=== PATIENT | female | born 1935 | race Caucasian/White ===

== ENCOUNTER 2023-02-02 20:42 | Observation (INO) | payer OTHER, SELFPAY ==
[2023-02-02] VITALS (7 sets, daily range): BP systolic 126–188; BP diastolic 62–100; PULSE 85–96; BMI 43.1; BMI 42.2
[2023-02-02] MEDS: ZOFRAN ODT (ORALLY DISINTEGRATING) 4 MG PO (17:43)
[2023-02-02 17:49] LABS: Glucose - Point of Care 100 mg/dl (70-99)
[2023-02-02 18:10] LABS: % Basophils 0.9 % (0-2); % Eosinophils 5.8 % (0-6); % Immature Granulocytes 0.2 % (0-0.5); % Monocytes 14.3 % (1.7-9.3); % Neutrophils 53.8 % (42.2-75.2); Absolute Basophils 0.1 10^3/uL (0-0.2); Absolute Eosinophils 0.3 10^3/uL (0-0.7); Absolute Lymphocytes 1.4 10^3/uL (1.2-3.4); Absolute Monocytes 0.8 10^3/uL (0.1-0.6); Absolute Neutrophils 3.1 10^3/uL (1.4-6.5); Hematocrit 36.9 % (37.0-47.0); Hemoglobin 12.2 g/dL (12.0-16.0); Mean Corp Hgb Conc. 33.1 g/dL (33.0-37.0); Mean Corpuscular Hgb 28.8 pg (27.0-31.0); Mean Corpuscular Volume 87.2 fL (81.0-99.0); Mean Platelet Volume 9.9 fL (7.4-10.4); Nucleated Red Blood Cells % 0 %; Platelet Count 213 10^3/uL (130-400); Red Blood Cell Count 4.23 10^6/uL (4.20-5.40); White Blood Cell Count 5.7 10^3/uL (4.8-10.8)
[2023-02-02 18:30] LABS: ALT (SGPT) 20 U/L (0-35); AST (SGOT) 28 U/L (14-36); Albumin 3.8 g/dl (3.5-5.0); Alkaline Phosphatase 102 U/L (38-126); Blood Urea Nitrogen 18 mg/dl (7-17); Calcium 8.9 mg/dl (8.4-10.2); Carbon Dioxide 25 mmol/L (22-30); Chloride 103 mmol/L (98-107); Glucose 101 mg/dl (70-99); Potassium 4.1 mmol/L (3.5-5.1); Sodium 137 mmol/L (135-145); Total Bilirubin 0.9 mg/dl (0.2-1.3); Total Protein 7.3 g/dl (6.3-8.2); eGFR > 60.00
[2023-02-02 18:38] LABS: Troponin I < 0.012 ng/ml
--- NOTE | 2023-02-02 19:06 | ED.GENMED ---
History of Present Illness
General
Chief Complaint: Fainting Sensation
Source: patient
Exam Limitations: none
Time Seen by Provider: 02/02/23 18:19
Nursing documentation reviewed up to this point in time: agreed with
Travel History
Have you had any contact with someone who has COVID-19?: No
Do you have any symptoms of coronavirus? Fever > 100 degrees, chills, cough, shortness of breath, sore throat, loss of taste or smell, muscle aches, or headache?: No
History of Present Illness
History of Present Illness:
PT IS A 87 Y/O F with h/o afib on eliquis, htn, hld
daughter is historian because pt doesn't sepak andorran
here for an event when driving home from ED visit here where i saw her earlier
pt apparently was witnessed to have dec responsiveness and looked like ehe was about to pass out when in the backseat of the car. very brief, lasted seconds and then pt stold her daughter she felt nausea/sick to stomach. so daughter thought maybe
she was about to vomit
sh eturned car around to come back to the hospital
pt was seen earlier in the day for bronchitis and got a dose of doxy before being discharged.
from earlier today:
pt always apparently wheezes all the time, doesn't have diagnosis of COPD or asthma but daughter says that pt's smoked around her for years.
she also has h/o CHF in setting of rapid afib in 07/2022
not on diuretic
here with cough and congestion x 2 days, with low grade temp
no other aimly members sick
pt does'nt use inhaler or neb for her wheezing that she always has
pt denies feeling chest pain, shortness of breath, nausea, vomiting, diarrhea, abodminal pain, leg swelling
Past History
Past History
ED Past Medical History: Arrthythmia (afib), HTN, Hypercholesterolemia and Other (uti)
Social History
Tobacco: Non-smoker
Alcohol: None
Drug: None
Personal:
Living: with family
Review of Systems
Review of Systems
Allergies reviewed?: Yes
All Other Systems: Not applicable
Phy Exam
Physical Exam
Physical Exam:
GENERAL: Alert , in no apparent distress
EYE: pupils equal and reactive
NECK: Supple
ENT: o/p clr, mmm.
CARDIAC: Regular rate and rhythm .no edema
LUNGS: faint wheezing, no tachypnea, no acute respiratory distress, no rhonchi
ABDOMEN: Soft, without focal tenderness, no r/g, no cvat, normal bowel sounds
NEUROLOGICAL: Alert and oriented, no focal neuro deficits, mild dementia; memory loss suspected
SKIN: Warm and dry, skin intact. pale
MUSCULOSKELETAL: No edema, well perfused. neg krunal's sign
PSYCH: Normal and appropriate interaction.
Course
Orders/Labs/Results
Orders:
Orders
02/02/23 17:15
ECG [Electrocardiogram (*1)] Urgent
Reason for Study: Syncope
EKG- Treatment ONCE
02/02/23 17:41
Ondansetron Orally Disint [Zofran Odt (Orally Disintegrating)] 4 mg .ROUTE .STK-MED ONE
02/02/23 17:43
Ondansetron Orally Disint [Zofran Odt (Orally Disintegrating)] 4 mg PO NOW STA
02/02/23 17:47
Cardiac Monitoring- Treatment ONCE
IV Insert/Care/Rem.- Treatment PRN
02/02/23 17:49
Complete Blood Count/With Diff Urgent
Comprehensive Metabolic Panel Urgent
NT-proBNP Urgent
Comment: add on
Troponin I Urgent
02/02/23 17:58
CT Head W/o Iv Contrast Urgent
Comment:
Reason For Exam: syncope
02/02/23 18:23
CT Chest Pe Study Urgent
Comment: eval pe, eval pericardial effusion
Reason For Exam: hypoxia, near syncope; cardiomegaly
02/02/23 18:31
Add On- LAB Urgent
Tests Added?: pro bnp
02/02/23 20:27
Albuterol Nebs [Ventolin Nebules] 2.5 mg INH R NOW STA
Apixaban [Eliquis] 5 mg PO NOW STA
02/02/23 20:29
Admit/Transfer Patient As Directed
Co-Sign Provider:
Level of Care: Observation services
Assign to:: Telemetry
Physician / Group: Boris
Diagnosis: Syncope
Reason for Telemetry: Syncope
Date to Stop Telemetry: 02/04/23
Time to Stop Telemetry: 11:00
Code Status As Directed
Resuscitation Status: Full Code
02/04/23 11:00
DC Protocol for Telemetry ONCE
Abnormal Lab Results
02/02/23 02/02/23
17:48 17:49
Hct 36.9 L %
(37.0-47.0)
RDW 15.0 H %
(11.5-14.5)
Absolute Monos (auto) 0.8 H 10^3/uL
(0.1-0.6)
Monocytes % 14.3 H %
(1.7-9.3)
BUN 18 H mg/dl
(7-17)
Glucose 101 H mg/dl
(70-99)
POC Glucose 100 H mg/dl
(70-99)
02/02/23 17:49
02/02/23 17:49
Vital Signs
Initial and Last Documented VS:
Initial Vital Signs
Temp Pulse Resp BP Pulse Ox
98.2 F 80 18 188/100 95
02/02/23 17:13 02/02/23 17:13 02/02/23 17:13 02/02/23 17:13 02/02/23 17:13
Last Documented Vital Signs
Temp Pulse Resp BP Pulse Ox
98.2 F 75 18 139/62 93
02/02/23 17:13 02/02/23 20:48 02/02/23 20:48 02/02/23 20:48 02/02/23 19:15
MDM/Problems Addressed
Differential Diagnosis Includes:
PE, pericardial effusion, pna, vagal event
MDM/Problems Addressed:
87 y/o F afib on eliquis
seen earlier for URI sxs thought to be bronchtis/pna
given abx
went home and on way had this nauesa/near vomiting and near syncope event where she wasn't responsive and looked pale and dry heaved
but on arrival she is hypoxic 91% and slightly wheezy
cts head/pe study neg
labs reassuring
but pt has dementia, cannot recall event
should monitor overnight trend trop.
*Critical Care Note
Total Time (30-74mins, 75-104mins- exclusive of procedures): Not Applicable
ED Attending Note
-
Portions of this chart may have been created with voice recognition software.� Occasional wrong word or��sound alike� substitutions may have occurred due to the inherent limitations of voice recognition software.
Discharge Plan
Departure
Patient Disposition: Admit
Date of Disposition: 02/02/23
Time of Disposition: 19:39
Admit to: Telemetry
Presentation/result/management discussed w/ accepting MD/DO: Hospitalist
Condition: Fair
Covid-19: Negative COVID-19
Discharge Problem:
Near syncope, Bronchitis, Dementia
Interventions
Interventions:
*Risk Screen - Suicide Last Done: 02/02/23 18:04
*General Assessment Last Done: 02/02/23 18:04
*Neglect/Abuse Screening Last Done: 02/02/23 18:04
ED- Fall Risk Assessment Last Done: 02/02/23 18:04
*ED COVID-19 Vaccine History Last Done: 02/02/23 17:13
ED- Cardiac Assessment Last Done: 02/02/23 19:56
ED- Neurological Assessment Last Done: 02/02/23 19:56
[2023-02-02 19:12] LABS: NT-proBNP 703 pg/ml
--- NOTE | 2023-02-02 20:32 | HPS.HSE ---
Family Physician
-
Family Physician: Ness Mckenzie
Chief Complaint
-
Syncope
History of Present Illness
Patient is an 87y F with PMH significant for CHF and A-Fib who presents to ED complaining of near-syncopal episode. Patient was seen in the ED earlier today for cough and cold symptoms. Work-up was essentially unremarkable and patient was
discharged on a course of oral doxycycline. She was given her first dose of doxy here in the ED. On the way home, patient began to complain of nausea and appeared pale and weak according to her daughter. Her eyes rolled back and she looked as if
she might pass out. She did not have any emesis. She noted no chest pain or dyspnea.
Patient returned to the ED for further evaluation.
At present, patient is resting comfortably in the ED. She denies any persistent nausea or lightheadedness. She was able to eat without difficulty.
Medical History
Past Medical History
Past Medical History: Reports Other
Additional Past Medical History:
Paroxysmal Atrial Fibrillation
Hypertension
Cardiomyopathy / Chronic HFpEF
Mild Dementia
Past Surgical History: Reports None and Other
Social History
Tobacco: Non-smoker (But long history of second-hand smoke exposure / spouse.)
Alcohol: None
Drug: None
Family History
Family History: Not pertinent
Allergies / Home Medications
Allergies reflects when Allergies were last updated in [facility].
Home Medications with original date entered in [facility]
Allergy/Medication List:
Allergies
Allergy/AdvReac Type Severity Reaction Status Date / Time
No Known Allergies Allergy Verified 02/02/23 12:23
Home Medications
acetaminophen 500 mg tablet (Tylenol Extra Strength) 500 mg PO Q6H PRN mild pain 02/02/23
apixaban 5 mg tablet (Eliquis) 5 mg PO DAILY@1700 02/02/23
diltiazem HCl 120 mg tablet 120 mg PO DAILY 12/15/23
metoprolol succinate 25 mg tablet,extended release 24 hr 25 mg PO DAILY 02/02/23
Review of Systems
-
History Source: Patient and Family
A 12 point ROS was completed and negative except as noted: Yes
Constitutional: Reports Fever and Fatigue; Denies Chills
EENT: Reports Sore Throat
Respiratory: Reports Cough; Denies Trouble Breathing
Cardiac: Reports Syncope; Denies Chest Pain or Palpitations
Abdomen/GI: Reports Nausea; Denies Abdominal Pain, Vomiting or Diarrhea
: Denies Dysuria or Frequency
Musculoskeletal: Denies Joint Pain or Edema
Neurological: Denies Dizzy or Headache
Psych: Denies Depression or Anxiety
Physical Exam
Vital Signs
Vital Signs
Temp Pulse Resp BP Pulse Ox
98.2 F 82 20 165/83 93
02/02/23 17:13 02/02/23 19:15 02/02/23 19:15 02/02/23 19:15 02/02/23 19:15
Physical Exam
General: Other (87y F in no acute distress.)
HEENT: Moist mucous membranes and PERRLA
Respiratory: Clear; No Wheezes, Rales or Rhonchi
Cardiac: S1/S2 and Irregular Rhythm; No Murmur
GI: Soft, Non Tender, Non Distended and Normal Bowel Sounds
Musculoskeletal: No Clubbing, No Cyanosis and No Edema
Neuro: AO x 3
Laboratory Results
-
02/02/23 17:49
02/02/23 17:49
Laboratory Results
Total Bilirubin 0.9 mg/dl (0.2-1.3) 02/02/23 17:49
AST 28 U/L (14-36) 02/02/23 17:49
ALT 20 U/L (0-35) 02/02/23 17:49
Alkaline Phosphatase 102 U/L (38-126) 02/02/23 17:49
Troponin I < 0.012 ng/ml 02/02/23 17:49
Impression/Plan
-
A/P: Patient is an 87y F with PMH significant for A-Fib and CHF who presents to ED for evaluation of near-syncopal episode.
Near Syncope
- Observe overnight for further evaluation and treatment.
- EKG, CT PE study, etc all unremarkable in the ED.
- Suspect vasovagal episode secondary to nausea from PO doxy.
- Monitor on tele overnight for any other arrhythmia.
- Monitor for new / recurrent symptoms.
- Hold further doxy / abx.
- PRN antiemetics as needed.
URI
- Cough /cold symptoms x several days.
- Afebrile here with no leukocytosis, etc.
- CT chest with no PE and no parenchymal lung disease.
- Hold further abx.
- Supportive care with nebs, Mucinex, etc.
Paroxysmal Atrial Fibrillation
- Stable. Med regimen is somewhat confounding.
- Patient takes Cardizem and Toprol both once daily - had been BID at time of July discharge.
- Keep these at daily for now and monitor BP / pulse rate.
- Also takes Eliquis only once daily - which seems like a misunderstanding.
- Will resume BID Eliquis doing for stroke risk reduction.
Chronic HFpEF
- Stable. No evidence of volume overload.
- Not on chronic diuretics.
- Follow daily weights, I/Os, etc.
DVT Prophylaxis: On Eliquis
Code Status: Full
[2023-02-02] MEDS: ELIQUIS 5 MG PO (20:40)
[2023-02-02] MEDS: VENTOLIN NEBULES 2.5 MG INH (20:40)
[2023-02-03 03:46] VITALS: BP 131/56
[2023-02-03 06:00] VITALS: BMI 41.7
[2023-02-03 06:29] LABS: Hematocrit 33.9 % (37.0-47.0); Hemoglobin 11.3 g/dL (12.0-16.0); Mean Corp Hgb Conc. 33.3 g/dL (33.0-37.0); Mean Corpuscular Volume 86.9 fL (81.0-99.0); Mean Platelet Volume 9.5 fL (7.4-10.4); Platelet Count 188 10^3/uL (130-400)
[2023-02-03 07:00] LABS: Blood Urea Nitrogen 18 mg/dl (7-17); Calcium 8.4 mg/dl (8.4-10.2); Carbon Dioxide 25 mmol/L (22-30); Chloride 104 mmol/L (98-107); Estimated Creatinine Clearance 36 ml/min; Glucose 97 mg/dl (70-99); Potassium 4.2 mmol/L (3.5-5.1); Sodium 136 mmol/L (135-145); eGFR > 60.00
[2023-02-03 07:14] LABS: Troponin I < 0.012 ng/ml
[2023-02-03 07:16] VITALS: BP 144/72
[2023-02-03] MEDS: ELIQUIS 5 MG PO (08:26)
[2023-02-03] MEDS: CARDIZEM CD 120 MG PO (08:26)
[2023-02-03] MEDS: TOPROL XL 25 MG PO (08:26)
[2023-02-03] MEDS: MUCINEX 600 MG PO (08:26)
--- NOTE | 2023-02-03 09:03 | W.PN.HOSP.TC ---
Addendum entered and electronically signed by Fernando Aguero MD 02/03/23 09:12:
Daughter updated and all questions answered.
I have requested daughter to continue monitoring patient blood pressure/heart rate if have any further dizziness episode.
Patient to follow-up with primary care physician within 1 week postdischarge.
Patient can be discharged home after physical therapy evaluation today
Original Note:
Today's Communication/Plan
-
Repeat Ortho check
PT OT evaluation
Possible discharge later today
Assessment / Plan
Assessment / Plan
Patient is an 87y F with PMH significant for A-Fib and CHF who presents to ED for evaluation of near-syncopal episode.
Near Syncope
Suspected vasovagal event
�- EKG, CT PE study, etc all unremarkable in the ED.
�- EKG in the morning showing normal sinus arrhythmia. QTc 4 4 2 ms
- Orthostatic vitals somewhat positive although standing SBP of 124. Recheck today
- PT OT evaluation ordered.
�- Hold further doxy / abx.
�- PRN antiemetics as needed.
URI
�- Cough /cold symptoms x several days.
�- Afebrile here with no leukocytosis, etc.
�- CT chest with no PE and no parenchymal lung disease.
�- Hold further abx.
�- Supportive care with nebs, Mucinex, etc.
�
Paroxysmal Atrial Fibrillation
�- Stable.� Med regimen is somewhat confounding.
�- Patient takes Cardizem and Toprol both once daily - had been BID at time of July discharge.
�- Patient on Eliquis 5 mg twice daily, although med list showing daily which might have been med reconciliation error/miscommunication
Chronic HFpEF
�- Stable.� No evidence of volume overload.
�- Not on chronic diuretics.
�- Follow daily weights, I/Os, etc.
DVT Prophylaxis:� On Eliquis
Code Status:� Full
Anticipated Discharge: Today
Subjective/Interval History
-
Date of Service: February 03, 2023
Resting comfortably in bed
No reported acute issues overnight
Objective Data
-
Labs:
Laboratory Results
02/03/23
06:20
WBC 6.0
Hgb 11.3 L
Hct 33.9 L
Plt Count 188
Sodium 136
Potassium 4.2
Chloride 104
Carbon Dioxide 25
BUN 18 H
Creatinine 0.9
Glucose 97
Calcium 8.4
Vital Signs:
Vital Signs
Temp Pulse Resp BP Pulse Ox
100.3 F 82 20 144/72 91
02/03/23 07:16 02/03/23 07:16 02/03/23 07:16 02/03/23 07:16 02/03/23 07:16
I&O
02/02/23 02/03/23 02/04/23
06:59 06:59 06:59
Intake Total 480 / 480
Balance 480 / 480
Review of Systems
-
Unable to obtain full review of systems at this time due to: Language Barrier
Physical Exam
-
General: No Apparent Distress
HEENT: Negative Oxygen
Respiratory: Clear to Auscultation
Cardiac: Regular Rhythm and S1/S2; Negative Murmur
Neuro: Awake, Alert and No Motor Deficits
[2023-02-03] MEDS: TYLENOL 650 MG PO (09:12)
--- NOTE | 2023-02-03 10:10 | CM ---
Addendum entered by Maria Esther Lou 02/03/23 12:02:
Patient's daughter is agreeable to visiting nurses and has selected
[facility]

Alternative fax [phone]
Original Note:
Patient was admitted under observation, patient [id number] with her eldest daughter in a 2 story home with stair glide to 2nd floor, florencio twas independent with adl's and uses a cane or walker with ambulation. Patient has a prescription plan and florencio
uses [facility] pharmacy.
PCP; Ness Mckenzie
Plan; Home with daughters, caseworker with discuss visiting nurses at discharge.
[2023-02-03 10:14] VITALS: BP 117/63; BP 145/73; PULSE 80; O2SAT 92
[2023-02-03 11:37] VITALS: BP 103/58; BP 119/63; BP 128/69; PULSE 77; PULSE 83; PULSE 86
--- NOTE | 2023-02-03 17:00 | W.DCSUMMARY ---
Discharge Summary
Discharge Data
Date of Admission: 02/02/23
Date of Discharge: 02/03/23
-
Pending Results: No
Hospital Course
Discharging Physician : Dr Fernando Aguero
Disposition : Home
Primary care physician : Dr Ness Mckenzie
Principal Discharge diagnosis :
Presyncope vasovagal event
Doxycycline induced nausea
Chronic Discharge diagnosis :
Paroxysmal atrial fibrillation
Chronic diastolic heart failure
Essential hypertension
Hospital Course :
Patient is 87-year-old female with above-mentioned past medical history was brought into ER after having near syncope episode. Patient was seen in ER earlier and had CT chest PE/EKG/lab work which was unrevealing of any ongoing acute issues.
Patient was having some cough/cold symptoms and was provided doxycycline by ER physician. On the way to home patient was noted to having some nausea and was appeared to be pale and weak . At 1 point patient was dizzy with eye rolling backwards.
Patient was brought back to ER by family. In ER patient was noted to be back to herself, her episode of presyncope was felt to be vasovagal in nature from nausea induced by doxycycline. As there was no clear significance symptoms, doxycycline was
discontinued and patient was maintained on symptomatic care. Patient was monitored in hospital on telemetry overnight, and did not have any reported reoccurrence of similar episode. Patient had orthostatic vitals checked and did have some drop in
systolic blood pressure on standing although SBP in 120s and likely would not give any orthostasis symptoms. Patient was cleared medically at this point for discharge home.
Of note patient was on Eliquis 5 mg daily, which was likely not true, patient was changed to 5 mg twice daily and family was instructed about this change.
Important imaging findings :
None
Procedure findings :
None
Discharge Plan
-
Patient Disposition: Home (Routine Discharge)
Discharge Diagnosis/Procedures: Syncope presumed vasovagal
Condition: Fair
Diet: Regular
Activity: As tolerated
Driving Restrictions: No driving
Bathing Restrictions: OK to Shower
Referrals:
Ness Mckenzie MD [Family Provider] - in one week
Prescriptions:
Continued
acetaminophen [Tylenol Extra Strength] 500 mg Tablet
500 mg PO Q6H PRN (Reason: mild pain)
diltiazem HCl 120 mg Tablet
120 mg PO DAILY
metoprolol succinate 25 mg Tablet Extended Release 24 Hr
25 mg PO DAILY
Eliquis 5 mg tablet
5 mg PO BID Qty: 0 0RF
Discharge Orders:
Discharge Patient (As Directed); Ordered 02/03/23
Ordered By: Fernando Aguero
== END 2023-02-03 17:31 | disposition home health service (06) ==
LOC: 4 WEST ACU 20:42
PROVIDERS: Emergency Medicine; ADMITTING PHYSICIAN Hospitalist; ATTENDING PHYSICIAN Hospitalist; EMERGENCY PHYSICIAN Emergency Medicine; FAMILY PHYSICIAN Internal Medicine
DX: R11.0 Nausea (principal); R55 Syncope and collapse; R42 Dizziness and giddiness; T36.4X5A Adverse effect of tetracyclines, initial encounter; Y92.9 Unspecified place or not applicable; I48.0 Paroxysmal atrial fibrillation; I11.0 Hypertensive heart disease with heart failure; J40 Bronchitis, not specified as acute or chronic; I50.32 Chronic diastolic (congestive) heart failure; E78.00 Pure hypercholesterolemia, unspecified; R09.02 Hypoxemia; F03.A0 Unspecified dementia, mild, without behavioral disturbance, psychotic disturbance, mood disturbance, and anxiety; Z77.22 Contact with and (suspected) exposure to environmental tobacco smoke (acute) (chronic); Z79.01 Long term (current) use of anticoagulants; Z87.440 Personal history of urinary (tract) infections
CPT/HCPCS: 70450; 71275; 80048; 80053; 82962; 83880; 84484; 85025; 85027; 93005; 97162; 99285; G0378; Q9967

== ENCOUNTER 2023-04-06 17:08 | Emergency (ER) | payer OTHER, MEDICARE, SELFPAY ==
[2023-04-06 17:12] VITALS: BP 154/73
[2023-04-06 17:31] LABS: % Basophils 0.5 % (0-2); % Eosinophils 4.2 % (0-6); % Immature Granulocytes 0.3 % (0-0.5); % Lymphocytes 34.1 % (20.5-51.1); % Neutrophils 50.9 % (42.2-75.2); Absolute Eosinophils 0.3 10^3/uL (0-0.7); Absolute Monocytes 0.6 10^3/uL (0.1-0.6); Absolute Neutrophils 3.1 10^3/uL (1.4-6.5); Hematocrit 35.3 % (37.0-47.0); Hemoglobin 11.7 g/dL (12.0-16.0); Mean Corp Hgb Conc. 33.1 g/dL (33.0-37.0); Mean Corpuscular Hgb 29.2 pg (27.0-31.0); Mean Platelet Volume 10.1 fL (7.4-10.4); Nucleated Red Blood Cells % 0 %; Platelet Count 247 10^3/uL (130-400); Red Blood Cell Count 4.01 10^6/uL (4.20-5.40); Red Cell Dist. Width 14.8 % (11.5-14.5)
[2023-04-06 17:52] LABS: NT-proBNP 345 pg/ml
[2023-04-06 18:30] LABS: ALT (SGPT) 22 U/L (0-35); AST (SGOT) 28 U/L (14-36); Albumin 3.7 g/dl (3.5-5.0); Alkaline Phosphatase 102 U/L (38-126); Blood Urea Nitrogen 27 mg/dl (7-17); Calcium 9.3 mg/dl (8.4-10.2); Carbon Dioxide 26 mmol/L (22-30); Chloride 105 mmol/L (98-107); Glucose 134 mg/dl (70-99); Potassium 4.4 mmol/L (3.5-5.1); Sodium 138 mmol/L (135-145); Total Bilirubin 0.5 mg/dl (0.2-1.3); Total Protein 6.9 g/dl (6.3-8.2); eGFR > 60.00
[2023-04-06 19:45] VITALS: BP 159/72
--- NOTE | 2023-04-06 20:20 | ED.GENMED ---
History of Present Illness
General
Chief Complaint: Swelling
Source: patient
Exam Limitations: none
Time Seen by Provider: 04/06/23 19:12
Nursing documentation reviewed up to this point in time: agreed with
Travel History
Have you had any contact with someone who has COVID-19?: No
Do you have any symptoms of coronavirus? Fever > 100 degrees, chills, cough, shortness of breath, sore throat, loss of taste or smell, muscle aches, or headache?: No
History of Present Illness
History of Present Illness:
Patient with history of atrial fibrillation on Eliquis, presents to ED secondary to increasing left lower leg pain with swelling and redness over the past 3 days. Denies fever or chills. Denies trauma. Denies open wound. Denies previous history
of similar symptoms. Denies chest pain or shortness of breath. Denies recent illness.
Past History
Past History
ED Past Medical History: Arrthythmia (afib), HTN, Hypercholesterolemia and Other (uti)
Social History
Tobacco: Non-smoker
Alcohol: None
Drug: None
Personal:
Living: with family
Review of Systems
Review of Systems
Allergies reviewed?: Yes
All Other Systems: ROS reviewed and negative except as documented in HPI and ROS
Constitutional: Reports no symptoms; Denies fever or chills
EENT: Reports no symptoms
Respiratory: Reports no symptoms; Denies trouble breathing
Cardiac: Reports no symptoms; Denies chest pain
ABD/GI: Reports no symptoms
: Reports no symptoms
Musculoskeletal: Reports edema and other (Left leg pain with swelling and redness)
Skin: Reports other (Redness of the leg)
Neurological: Reports no symptoms
Phy Exam
Physical Exam
Physical Exam:
Physical Exam
General: no apparent distress, not acutely ill. afebrile
Head: nc/at. eomi
Neck: supple. no meningeal signs.
Abdomen: normal bowel sounds. not tender.
Neuro: alert and oriented. no focal neurological deficits
Skin: no rash
Psychiatric: well kept. interactive and cooperative
Extremities: LLE edema with erythema/warmth, without open wound. no calf tenderness.
Scores
Heart Failure Risk
Heart Failure Risk Score: Not Applicable
Course
Orders/Labs/Results
Orders:
Orders
04/06/23 17:19
BNP [NT-proBNP] Urgent
Complete Blood Count/With Diff Urgent
Comprehensive Metabolic Panel Urgent
04/06/23 19:33
US Legs, Left [US Periph Venous LOWER Ext LT] Urgent
Comment:
Reason For Exam: pain/swelling/redness
04/06/23 20:38
Cephalexin Monohydrate [Keflex] 250 mg PO NOW STA
Abnormal Lab Results
04/06/23
17:19
RBC 4.01 L 10^6/uL
(4.20-5.40)
Hgb 11.7 L g/dL
(12.0-16.0)
Hct 35.3 L %
(37.0-47.0)
RDW 14.8 H %
(11.5-14.5)
Monocytes % 10.0 H %
(1.7-9.3)
BUN 27 H mg/dl
(7-17)
Glucose 134 H mg/dl
(70-99)
04/06/23 17:19
04/06/23 17:19
Vital Signs
Initial and Last Documented VS:
Initial Vital Signs
Temp Pulse Resp BP Pulse Ox
98.0 F 79 18 154/73 95
04/06/23 17:12 04/06/23 17:12 04/06/23 17:12 04/06/23 17:12 04/06/23 17:12
Last Documented Vital Signs
Temp Pulse Resp BP Pulse Ox
98.0 F 74 16 159/72 97
04/06/23 17:12 04/06/23 19:45 04/06/23 19:45 04/06/23 19:45 04/06/23 19:45
MDM/Problems Addressed
MDM/Problems Addressed:
US LE: no DVT.
Patient with likely lower leg swelling, secondary to sedentary lifestyle, along with likely venous insufficiency, as patient appears to have chronic lower leg swelling. However, in light of mild warmth and erythema, difficult to exclude potential
lower leg cellulitis. As such, patient will be given short course of Lasix along with Keflex x 5 days. Recommended leg elevation while she is at home, along with PCP follow-up next week. Advised to return to ED with worsening symptoms. Patient
is otherwise afebrile, hemodynamically stable, and appears comfortable, at time of discharge, to the care of her daughter.
*Critical Care Note
Total Time (30-74mins, 75-104mins- exclusive of procedures): Not Applicable
ED Attending Note
-
Portions of this chart may have been created with voice recognition software.� Occasional wrong word or��sound alike� substitutions may have occurred due to the inherent limitations of voice recognition software.
Discharge Plan
Departure
Patient Disposition: Home (Routine Discharge)
Date of Disposition: 04/06/23
Time of Disposition: 20:42
Patient with high blood pressure during this ER visit?: Yes
Condition: Good
Discharge Problem:
Leg swelling
Instructions: Dependent Edema (DC)
Prescriptions:
New
furosemide [Lasix] 20 mg tablet
20 mg PO DAILY Qty: 2 0RF
cephalexin 250 mg capsule
250 mg PO Q12H Qty: 9 0RF
No Action
Eliquis 5 mg tablet
5 mg PO BID Qty: 0 0RF
diltiazem HCl 120 mg Tablet
120 mg PO BID
Referrals:
Ness Mckenzie MD [Family Provider] -
Activity Restrictions/Additional Instructions:
As discussed, please follow-up with your primary care physician for reevaluation next week. Your prescriptions have been sent electronically to [facility] pharmacy in [place].
Interventions
Interventions:
*Risk Screen - Suicide Last Done: 04/06/23 19:45
*General Assessment Last Done: 04/06/23 17:12
*Neglect/Abuse Screening Last Done: 04/06/23 19:45
*ED COVID-19 Vaccine History Last Done: 04/06/23 17:12
*Nursing Disposition Last Done: 04/06/23 21:08
ED- Cardiac Assessment Last Done: 04/06/23 19:45
ED- Pulmonary Assessment Last Done: 04/06/23 19:45
ED-Skin Assessment Last Done: 04/06/23 19:45
Discharge Date and Time
Discharge Date/Time: 04/06/23 21:09
[2023-04-06] MEDS: KEFLEX 250 MG PO (21:02)
== END 2023-04-06 21:09 | disposition home or self-care (01) ==
LOC: EMR 17:08
PROVIDERS: Emergency Medicine; EMERGENCY PHYSICIAN Emergency Medicine; FAMILY PHYSICIAN Internal Medicine
DX: M79.89 Other specified soft tissue disorders (principal); M79.662 Pain in left lower leg; I48.91 Unspecified atrial fibrillation; I10 Essential (primary) hypertension; E78.00 Pure hypercholesterolemia, unspecified; H54.61 Unqualified visual loss, right eye, normal vision left eye; M19.90 Unspecified osteoarthritis, unspecified site; Z79.01 Long term (current) use of anticoagulants; Z87.440 Personal history of urinary (tract) infections
CPT/HCPCS: 99284; 80053; 83880; 85025; 93971

== ENCOUNTER → 2023-05-15 14:59 | Outpatient (REF) | payer OTHER, SELFPAY | LOC: DHCBS MAIN 14:59 | PROVIDERS: ATTENDING PHYSICIAN Physician Assistant; FAMILY PHYSICIAN Internal Medicine | DX: I48.0 Paroxysmal atrial fibrillation (principal); I50.30 Unspecified diastolic (congestive) heart failure; R60.0 Localized edema; R06.09 Other forms of dyspnea | CPT/HCPCS: 93306 ==

== ENCOUNTER 2023-08-04 22:08 | Inpatient (IN) | payer OTHER, SELFPAY ==
[2023-08-04 19:02] VITALS: BP 185/78
--- NOTE | 2023-08-04 19:11 | ED.GENMED ---
History of Present Illness
General
Chief Complaint: Fever
Source: family and ambulance crew
Time Seen by Provider: 08/04/23 19:04
Travel History
Have you had any contact with someone who has COVID-19?: No
Do you have any symptoms of coronavirus? Fever > 100 degrees, chills, cough, shortness of breath, sore throat, loss of taste or smell, muscle aches, or headache?: Yes
Symptoms:: fever, cough
History of Present Illness
History of Present Illness:
87-year-old female with past medical history of atrial fibrillation, hypertension, hyperlipidemia presenting to the ER via EMS from home after daughter found her lethargic, weak and questionable rectal bleeding. Per EMS daughter told them that the
last time this happened patient was septic and required admission. Attempted to use the language line as patient is Guamanian-speaking only however while using the drive thru order taker line patient was not answering any of their questions from the drive thru order taker
as she did not seem to understand how to utilize this device. Per EMS daughter is reportedly on her way to the hospital to help provide further information.
Past History
Past History
ED Past Medical History: Arrthythmia (afib), HTN, Hypercholesterolemia and Other (uti)
ED Past Surgical History: None
Social History
Tobacco: Non-smoker
Alcohol: None
Drug: None
Personal:
Living: with family
Review of Systems
Review of Systems
All Other Systems: ROS reviewed and negative except as documented in HPI and ROS
Phy Exam
Physical Exam
Physical Exam:
GENERAL: Alert , in no apparent distress, rigors
Head: Normocephalic atraumatic
EYE: Clear conjunctiva
NECK: Supple
ENT: o/p clr, mmm.
CARDIAC: Tachycardic rate and rhythm, no murmur
LUNGS: Clear breath sounds bilaterally, no acute respiratory distress, no wheezes/rales/rhonchi
ABDOMEN: Soft, without focal tenderness, no r/g, no cvat
NEUROLOGICAL: Alert but unable to assess orientation
SKIN: Warm and dry, skin intact.
MUSCULOSKELETAL: No edema, well perfused.
PSYCH: Normal and appropriate interaction.
Scores
Heart Failure Risk
Heart Failure Risk Score: Not Applicable
Heart Score for Chest Pain Patients
STEMI patient?: Not applicable
Withdrawal Assessment of Alcohol
Withdrawal Assessment Completed?: Not applicable
Course
Orders/Labs/Results
Orders:
Orders
08/04/23 19:01
EKG [Electrocardiogram (*1)] Urgent
Reason for Study: Tachycardia
08/04/23 19:02
EKG- Treatment ONCE
08/04/23 19:10
Straight cath- Treatment ONCE
0.9% Sodium Chloride 1000 ml [Nss] 1,000 ml IV BOLUS
Acetaminophen [Tylenol] 1,000 mg PO NOW STA
CR Chest - 2 Views Urgent
Comment:
Reason For Exam: fever
08/04/23 19:31
Blood Culture Q30M
PRABHJOT Source: Blood/Venous
Specimen Description:
08/04/23 19:39
COVID-19 Antigen Urgent
Source: Nasal Swab
08/04/23 20:00
Complete Blood Count/With Diff Urgent
Comprehensive Metabolic Panel Urgent
Lactic Acid Q4H
Comment: CANCEL 2nd LACTIC ACID IF 1st LACTIC ACID IS LESS THAN 2
Blood Culture Q30M
PRABHJOT Source: Blood/Venous
Specimen Description:
08/04/23 20:10
Urinalysis Reflex To Culture Urgent
Date Specimen was Collected: 08/04/23
Time Specimen was Collected: 20:08
Urine Microscopic Reflex Cult Urgent
Urine Culture Urgent
PRABHJOT Source: U
Specimen Description:
Date Specimen was Collected: 08/04/23
Time Specimen was Collected: 20:08
08/04/23 21:18
CefTRIAXone [Rocephin] 1,000 mg IV NOW STA
Abnormal Lab Results
08/04/23 08/04/23
20:00 20:10
RBC 4.08 L 10^6/uL
(4.20-5.40)
Hgb 11.6 L g/dL
(12.0-16.0)
Hct 35.4 L %
(37.0-47.0)
MCHC 32.8 L g/dL
(33.0-37.0)
RDW 15.5 H %
(11.5-14.5)
Abs Immat Gran (auto) 0.1 H 10^3/uL
(0-0.05)
Absolute Neuts (auto) 7.5 H 10^3/uL
(1.4-6.5)
Absolute Lymphs (auto) 1.1 L 10^3/uL
(1.2-3.4)
Neutrophils % 81.0 H %
(42.2-75.2)
Lymphocytes % 12.1 L %
(20.5-51.1)
Glucose 122 H mg/dl
(70-99)
AST 38 H U/L
(14-36)
Alkaline Phosphatase 132 H U/L
(38-126)
Urine Nitrite (Reflex) Positive A
(Negative)
Leukocyte Esterase Rfl Trace A
(Negative)
Urine WBC (Reflex) 11-15 A /HPF
(0-5)
Urine Bacteria (Reflex) Many A
(Negative)
08/04/23 20:00
08/04/23 20:00
Vital Signs
Initial and Last Documented VS:
Initial Vital Signs
Resp Pulse Ox
25 93
08/04/23 19:01 08/04/23 19:01
Last Documented Vital Signs
Temp Pulse Resp BP Pulse Ox
99.5 F 76 16 110/45 93
08/04/23 21:15 08/04/23 21:15 08/04/23 21:15 08/04/23 21:00 08/04/23 21:15
MDM/Problems Addressed
Differential Diagnosis Includes:
UTI, pneumonia, bacteremia, lower GI versus upper GI bleed
MDM/Problems Addressed:
Patient found to have a fever of 102.9 rectally on arrival. There was no stool within the rectum to assess Hemoccult. Patient does arrive hypertensive and mildly tachycardic. I suspect the tachycardia is likely secondary to patient's pyrexia.
She does appear rigors on exam. Tylenol ordered for pyrexia. Will initiate septic work. COVID testing ordered. Will await daughter arrival to the emergency department. If daughter does not arrive shortly will contact her via telephone to obtain
further history. Anticipate admission
*Pulse Oximetry
Patient hypoxic: no
*EKG
Interpreted by ED Provider?: Yes
Comparison EKG: no comparison EKG present
Heart Rate: 97
Rate: normal
Rhythm: sinus
Ischemia: no ischemia
*[employer] Server Interpretation
Rate: normal
Rhythm: sinus
*Critical Care Note
Total Time (30-74mins, 75-104mins- exclusive of procedures): Not Applicable
Data Reviewed
Review of Other/Old Records Reveals: Labs, Records and Discharge Summary (Recent admission for syncope/bronchitis in January 2023)
Source: records
Comment
Comment:
Patient's daughter is now at the bedside stating that patient woke up okay today and in the afternoon started to be a little bit more lethargic and heard the daughter making abnormal sounds while in the bathroom. She went to the bathroom and when
she helped the patient wipe she noticed a little bit of blood on the toilet paper. She noticed the patient laying in bed more and was Reiger wrist which is why she contacted EMS as she states the last time this happened she had E. coli bacteremia.
Daughter states patient seems to be mentating at her normal. No medications were provided at home prior to arrival.
Patient Management
Discussion with other providers: Hospitalist
Escalation/DeEscalation of care consider admission/obs:
Patient's labs show no leukocytosis. Urine is nitrite positive and trace leukocytes with 11-15 WBCs. COVID negative and chest x-ray is negative for any pneumonia. Given patient's age combined with her near 103 fever and history of bacteremia will
admit for IV antibiotics, monitoring and culture trending. I ordered Rocephin based off of patient's previous urine cultures from 1 year ago. Hospitalist team was notified and accepts for continued evaluation and treatment.
ED Attending Note
-
Portions of this chart may have been created with voice recognition software.� Occasional wrong word or��sound alike� substitutions may have occurred due to the inherent limitations of voice recognition software.
Discharge Plan
Departure
Patient Disposition: Admit
Date of Disposition: 08/04/23
Time of Disposition: 21:20
Presentation/result/management discussed w/ accepting MD/DO: Hospitalist
Discharge Problem:
Acute UTI (urinary tract infection)
Prescriptions:
No Action
Eliquis 5 mg tablet
5 mg PO BID Qty: 0 0RF
diltiazem HCl 120 mg Capsule,Extended Release 24 Hr
120 mg PO BID
furosemide 20 mg Tablet
20 mg PO DAILY
Referrals:
Ness Mckenzie MD [Family Provider] -
Interventions
Interventions:
*Risk Screen - Suicide Last Done: 08/04/23 19:02
*General Assessment Last Done: 08/04/23 19:02
*Neglect/Abuse Screening Last Done: 08/04/23 19:02
ED- Fall Risk Assessment Last Done: 08/04/23 20:00
ED- Neurological Assessment Last Done: 08/04/23 20:00
ED-Skin Assessment Last Done: 08/04/23 20:00
Discharge Date and Time
Print Language: Guamanian
[2023-08-04] MEDS: TYLENOL 1000 MG PO (19:36)
[2023-08-04 19:56] LABS: COVID-19 Antigen Negative (Negative)
[2023-08-04 20:06] LABS: % Basophils 0.3 % (0-2); % Eosinophils 1.2 % (0-6); % Immature Granulocytes 0.5 % (0-0.5); % Lymphocytes 12.1 % (20.5-51.1); % Monocytes 4.9 % (1.7-9.3); Absolute Eosinophils 0.1 10^3/uL (0-0.7); Absolute Immature Granulocytes 0.1 10^3/uL (0-0.05); Absolute Lymphocytes 1.1 10^3/uL (1.2-3.4); Absolute Monocytes 0.5 10^3/uL (0.1-0.6); Absolute Neutrophils 7.5 10^3/uL (1.4-6.5); Hematocrit 35.4 % (37.0-47.0); Hemoglobin 11.6 g/dL (12.0-16.0); Mean Corp Hgb Conc. 32.8 g/dL (33.0-37.0); Mean Corpuscular Hgb 28.4 pg (27.0-31.0); Mean Corpuscular Volume 86.8 fL (81.0-99.0); Mean Platelet Volume 9.7 fL (7.4-10.4); Nucleated Red Blood Cells % 0 %; Platelet Count 226 10^3/uL (130-400); Red Blood Cell Count 4.08 10^6/uL (4.20-5.40); Red Cell Dist. Width 15.5 % (11.5-14.5); White Blood Cell Count 9.3 10^3/uL (4.8-10.8)
[2023-08-04 20:08] VITALS: BP 128/55
[2023-08-04] MEDS: NSS 1000 IV (20:09)
[2023-08-04 20:18] LABS: Urine Albumin Negative (Neg - Trace); Urine Bilirubin Negative (Negative); Urine Character Clear (Clear); Urine Color Yellow; Urine Glucose Negative (Negative); Urine Ketone Negative (Negative); Urine Leukocyte Trace (Negative); Urine Nitrite Positive (Negative); Urine Occult Blood Negative (Negative); Urine Specific Gravity 1.015 (<1.030); Urine Urobilinogen Negative (Neg - 1+); Urine pH 6.5 (5.0-9.0)
[2023-08-04 20:18] LABS: Lactic Acid 1.7 mmol/L (0.7-2.0)
[2023-08-04 20:22] LABS: ALT (SGPT) 29 U/L (0-35); AST (SGOT) 38 U/L (14-36); Albumin 4.3 g/dl (3.5-5.0); Alkaline Phosphatase 132 U/L (38-126); Blood Urea Nitrogen 17 mg/dl (7-17); Calcium 9.4 mg/dl (8.4-10.2); Carbon Dioxide 24 mmol/L (22-30); Chloride 104 mmol/L (98-107); Glucose 122 mg/dl (70-99); Potassium 4.3 mmol/L (3.5-5.1); Sodium 138 mmol/L (135-145); Total Bilirubin 0.7 mg/dl (0.2-1.3); Total Protein 8.1 g/dl (6.3-8.2); eGFR > 60.00
[2023-08-04 20:25] LABS: Urine Bacteria Many (Negative); Urine Red Blood Cell None Seen /HPF (0-2)
[2023-08-04 21:00] VITALS: BP 110/45
[2023-08-04] MEDS: ROCEPHIN 1000 MG IV (21:21)
--- NOTE | 2023-08-04 21:34 | HPS.HSE ---
Addendum entered and electronically signed by Jan Escalante DO 08/04/23 22:32:
Patient seen and examined independently. Agree with findings and plan as set forth by Toshia Arellano PA-C.
Patient is an 87y F with PMH significant for PA-Fib, hypertension and CHF who presents to ED complaining of fever at home and noted some BRB on the toilet tissue today after straining for BM over the past two days. Patient denies any dysuria,
frequency, abdominal pain, etc. Daughter noted that she was weak / fatigues at home today and she had shaking chills with temp at home to 99.
On arrival to the ED today, patient was noted to have temp = 102.9 and heart rate > 100 consistent with sepsis.
Ass:
UTI
Sepsis secondary to the above
Constipation
BRBPR - Hemorrhoid v Anal Fissure
Chronic HFpEF
Paroxysmal Atrial Fibrillation
Mild Dementia
Plan:
Admit for further evaluation and treatment.
IV abx, IVFs, supportive care.
Follow-up culture data and adjust abx as needed.
Hold Lasix acutely.
Bowel regimen and monitor for further bleeding.
Follow H&H. Consider GI eval if any significant bleeding - though symptoms likely due to straining / hemorrhoids v fissure.
Follow for clinical improvement.
Original Note:
Family Physician
-
Family Physician: Ness Mckenzie
Chief Complaint
-
Lethargy and Weakness
History of Present Illness
This is an 87 year old female with past medical history of atrial fibrillation and congestive heart failure that presents to the emergency department with rectal bleeding, lethargy, and weakness. The patient is unable to provide historical
information due to language barrier, so patient's daughter at the bedside provided historical information. The daughter reports her mother was having trouble with constipation yesterday and noticed bright red blood on the toilet tissue. Daughter
states this morning the patient was lethargic and weaker than usual. Later patient started exhibiting rigors, prompting the patient to come to the emergency department. The daughter notes the patient has not complained of painful urination but has
urinary frequency since presenting to the emergency department. Upon arrival to the emergency department patient was found to have a temp of 102.9F.
Medical History
Past Medical History
Past Medical History: Reports Other
Additional Past Medical History:
Paroxysmal Atrial Fibrillation
Hypertension
Cardiomyopathy / Chronic HFpEF
Mild Dementia
Past Surgical History: Reports None
Social History
Tobacco: Non-smoker (But long history of second-hand smoke exposure / spouse.)
Alcohol: None
Drug: None
Family History
Family History: Unable to Obtain
Allergies / Home Medications
Allergies reflects when Allergies were last updated in [facility].
Home Medications with original date entered in [facility]
Allergy/Medication List:
Allergies
Allergy/AdvReac Type Severity Reaction Status Date / Time
No Known Allergies Allergy Verified 04/06/23 17:14
Home Medications
apixaban 5 mg tablet (Eliquis) 5 mg PO BID #0 tabs 02/03/23
diltiazem HCl 120 mg capsule,24 hr,extended release 120 mg PO BID 08/04/23
furosemide 20 mg tablet 20 mg PO DAILY 08/04/23
Review of Systems
-
Unable to obtain full review of systems at this time due to: Language Barrier
Physical Exam
Vital Signs
Vital Signs
Temp Pulse Resp BP Pulse Ox
99.5 F 76 16 110/45 93
08/04/23 21:15 08/04/23 21:15 08/04/23 21:15 08/04/23 21:00 08/04/23 21:15
Physical Exam
General: Well Developed, Well Nourished and No Apparent Distress
HEENT: Anicteric and Moist mucous membranes
Respiratory: Clear and Non Labored Respirations
Cardiac: S1/S2 and Regular Rhythm
GI: Soft, Non Tender and Non Distended
Rectal: Deferred by Provider
Genito-urinary: Clear Urine
Musculoskeletal: No Clubbing, No Cyanosis, No Edema and Other (+1 pitting edema bilateral lower ext)
Skin: Warm and Dry
Neuro: Awake, Alert and Nonfocal/grossly intact
Laboratory Results
-
08/04/23 20:00
08/04/23 20:00
Laboratory Results
Lactic Acid Cancelled 08/04/23 23:15
Total Bilirubin 0.7 mg/dl (0.2-1.3) 08/04/23 20:00
AST 38 U/L (14-36) H 08/04/23 20:00
ALT 29 U/L (0-35) 08/04/23 20:00
Alkaline Phosphatase 132 U/L (38-126) H 08/04/23 20:00
Data Reviewed
-
Lab Data: Labs Reviewed by me
Old Records: Reviewed
Impression/Plan
-
Sepsis secondary Urinary Tract Infection
-Continue Ceftriaxone
-Await urine and blood cultures
Hemorrhoidal vs Anal Fissure Bleeding secondary to Constipation
-Start Miralax
Paroxysmal Atrial Fibrillation
-Continue Eliquis for anticoagulation
-Continue diltiazem for rate control
Cardiomyopathy / Chronic HFpEF
-Hold Lasix in setting of sepsis
-Monitor Is&Os and Daily Weights
Mild Dementia
-Monitor for mood/behavior changes during hospitalization
DVT proph: Eliquis
Code Status: Full Code
[2023-08-04 22:00] VITALS: BP 112/46
[2023-08-04 23:37] VITALS: BP 124/51; BMI 33.0
[2023-08-05] VITALS (8 sets, daily range): BP systolic 116–159; BP diastolic 55–79; PULSE 78–83; BMI 32.9
[2023-08-05 06:47] LABS: Hematocrit 29.9 % (37.0-47.0); Mean Corp Hgb Conc. 33.4 g/dL (33.0-37.0); Mean Corpuscular Hgb 28.2 pg (27.0-31.0); Mean Corpuscular Volume 84.5 fL (81.0-99.0); Mean Platelet Volume 9.9 fL (7.4-10.4); Platelet Count 189 10^3/uL (130-400); Red Blood Cell Count 3.54 10^6/uL (4.20-5.40); Red Cell Dist. Width 15.8 % (11.5-14.5); White Blood Cell Count 8.7 10^3/uL (4.8-10.8)
[2023-08-05 07:33] LABS: Blood Urea Nitrogen 13 mg/dl (7-17); Calcium 8.7 mg/dl (8.4-10.2); Carbon Dioxide 23 mmol/L (22-30); Chloride 109 mmol/L (98-107); Estimated Creatinine Clearance 56 ml/min; Glucose 88 mg/dl (70-99); Magnesium 1.8 mg/dl (1.6-2.3); Potassium 3.8 mmol/L (3.5-5.1); Sodium 139 mmol/L (135-145); eGFR > 60.00
[2023-08-05] MEDS: ELIQUIS 5 MG PO ×2 (09:02→20:42)
[2023-08-05] MEDS: CARDIZEM CD 120 MG PO ×2 (09:02→20:42)
[2023-08-05] MEDS: MIRALAX 17 GRAMS PO (09:02)
--- NOTE | 2023-08-05 10:05 | W.PN.HOSP.TC ---
Today's Communication/Plan
-
Continue with ceftriaxone
Follow culture data
Assessment / Plan
Assessment / Plan
Sepsis secondary Urinary Tract Infection
-Resolved fever and improved clinical status
-Continue Ceftriaxone
-Await urine and blood cultures
Hemorrhoidal vs Anal Fissure Bleeding secondary to Constipation
-Start Miralax
-No rectal bleeding noted here.
Paroxysmal Atrial Fibrillation
-Continue Eliquis for anticoagulation
-Continue diltiazem for rate control
Cardiomyopathy / Chronic HFpEF
-Continue to hold Lasix in setting of sepsis
-Monitor Is&Os and Daily Weights
Mild Dementia
-Monitor for mood/behavior changes during hospitalization
DVT proph: Eliquis
Code Status: Full Code
DC in a.m. if continued improvement and culture data is back
Anticipated Discharge: Within 24 hours
Subjective/Interval History
-
Date of Service: August 05, 2023
Patient is Vincentian-speaking. Daughter at bedside. She is seen much improvement.
Patient is eating better. Seems stronger. Daughter did mention about increased frequency of urine should she came to the hospital.
According to daughter patient has no headache, nausea, vomiting, diarrhea or abdominal pain. Also according to daughter no chest pain, shortness of breath or cough.
Patient lives with daughter on the moves around in the house independently. Sometimes uses a cane. Prior to coming to the hospital she was very weak and mostly lying in the bed.
Objective Data
-
Labs:
Laboratory Results
08/05/23
06:21
WBC 8.7
Hgb 10.0 L
Hct 29.9 L
Plt Count 189
Sodium 139
Potassium 3.8
Chloride 109 H
Carbon Dioxide 23
BUN 13
Creatinine 0.7
Glucose 88
Calcium 8.7
Vital Signs:
Vital Signs
Temp Pulse Resp BP Pulse Ox
99.0 F 81 16 154/79 95
08/05/23 07:25 08/05/23 09:02 08/05/23 07:25 08/05/23 09:02 08/05/23 07:25
I&O
08/04/23 08/05/23 08/06/23
06:59 06:59 06:59
Intake Total 380 / 380
Output Total 450 / 450
Balance -70 / -70
Review of Systems
-
Unable to obtain full review of systems at this time due to: Language Barrier
Physical Exam
-
General: No Apparent Distress
HEENT: Moist Mucous Membranes
Respiratory: Clear to Auscultation
Cardiac: Regular Rhythm and S1/S2; Negative Tachycardic
GI: Soft and Nontender
Neuro: Awake, Alert and Oriented
Psych: Calm
Data Reviewed
-
Labs: Labs Reviewed by me
--- NOTE | 2023-08-05 15:38 | CM ---
Reviewed the chart notes and spoke with the patient at the bedside. The patient resides with her daughter and son-in-law in a second floor condo with stair glide. The patient has a cane and rolling walker. The patient has [employer] through [facility] 36 hrs/week and attends [facility] 3 days a week from 10am-2pm. CM continues to be available to patient/family and is monitoring medical plan for needs at discharge.
Plan: Discharge to home with resumption of prior services.
[2023-08-05] MEDS: STERILE WATER FOR INJECTION 10 ML IV (21:06)
[2023-08-05] MEDS: ROCEPHIN 1000 MG IV (21:06)
--- NOTE | 2023-08-05 22:20 | PTCARENOTE ---
Patient blood cultures resulted- Gram Positive Cocci in clusters. House PRESSURE TESTER notified. No new orders at this time.
[2023-08-06 03:41] VITALS: BP 131/77
[2023-08-06 06:00] VITALS: BMI 32.1
[2023-08-06 07:35] VITALS: BP 142/79
[2023-08-06] MEDS: CARDIZEM CD 120 MG PO (09:57)
[2023-08-06] MEDS: ELIQUIS 5 MG PO ×2 (09:57→20:52)
[2023-08-06] MEDS: MIRALAX 17 GRAMS PO (09:57)
[2023-08-06 11:10] VITALS: BP 153/73
[2023-08-06 13:10] LABS: Hemoglobin 10.6 g/dL (12.0-16.0); Mean Corp Hgb Conc. 33.1 g/dL (33.0-37.0); Mean Corpuscular Hgb 28.2 pg (27.0-31.0); Mean Corpuscular Volume 85.1 fL (81.0-99.0); Mean Platelet Volume 9.3 fL (7.4-10.4); Platelet Count 185 10^3/uL (130-400); Red Blood Cell Count 3.76 10^6/uL (4.20-5.40); Red Cell Dist. Width 15.7 % (11.5-14.5); White Blood Cell Count 4.3 10^3/uL (4.8-10.8)
--- NOTE | 2023-08-06 13:34 | W.PN.HOSP.TC ---
Today's Communication/Plan
-
CW abx
Follow ucx data
Consult GI
Assessment / Plan
Assessment / Plan
Sepsis secondary Urinary Tract Infection
-Resolved fever and improved clinical status
-Continue Ceftriaxone
-Await urine and blood cultures
Gram-positive cocci bacteremia-1 out of 2. Await identification. Patient remains afebrile .
Hemorrhoidal vs Anal Fissure Bleeding secondary to Constipation
-cw Miralax
-Recurrent rectal bleeding noted here -consult GI;pt on eliquis.
- Start on Anusol
Paroxysmal Atrial Fibrillation
-Continue Eliquis for anticoagulation
-Continue diltiazem for rate control
Cardiomyopathy / Chronic HFpEF
-Continue to hold Lasix in setting of sepsis
-Monitor Is&Os and Daily Weights
Mild Dementia
-Monitor for mood/behavior changes during hospitalization
DVT proph: Eliquis
Code Status: Full Code
Anticipated Discharge: 24 - 48 hours
Subjective/Interval History
-
Date of Service: August 06, 2023
Patient sitting in a chair and having her lunch without any issues.
According to the daughter she is improved.
Ongoing frequency of urine. No fever or chills.
She had 1 bowel movement yesterday with bright red rectal bleeding. Apparently it happened at home as well which is a new thing for her. She is on Eliquis.
Patient is Chinese-speaking. History is from the daughter at bedside
Objective Data
-
Labs:
Laboratory Results
08/06/23
12:55
WBC 4.3 L
Hgb 10.6 L
Hct 32.0 L
Plt Count 185
Vital Signs:
Vital Signs
Temp Pulse Resp BP Pulse Ox
97.7 F 79 16 153/73 93
08/06/23 11:10 08/06/23 11:10 08/06/23 11:10 08/06/23 11:10 08/06/23 11:10
I&O
08/05/23 08/06/23 08/07/23
06:59 06:59 06:59
Intake Total 380 / 380 900 / 900
Output Total 450 / 450 150 / 150
Balance -70 / -70 750 / 750
Review of Systems
-
Respiratory: Denies Trouble Breathing
Cardiac: Denies Chest Pain
Physical Exam
-
General: No Apparent Distress
HEENT: Moist Mucous Membranes
Respiratory: Clear to Auscultation
Cardiac: Regular Rhythm and S1/S2
Neuro: Awake, Alert and Oriented
Psych: Calm
Data Reviewed
-
Labs: Labs Reviewed by me
[2023-08-06 15:30] VITALS: BP 145/78
--- NOTE | 2023-08-06 15:56 | CON.GI ---
Addendum entered and electronically signed by Radha Laboy MD 08/06/23 17:45:
I saw and examined the patient.
The PACKING MACHINE PILOT CAN ROUTER's note was reviewed and I agree with the note.
Rectal bleeding/constipation-no prior colonoscopy, no bleeding since yesterday
afib on Eliquis
UTI
plan
Discussed with patient daughter/patient about benefit versus risk of colonoscopy. Patient/patient's daughter would like to hold off on endoscopic evaluation in the future.
Advised on daily bowel regimen-MiraLAX/Colace.
Avoid constipation
Topical hemorrhoidal preparation as needed
Okay to continue anticoagulation for now
No further recommendation. GI will sign off. Please call us back if any questions
Addendum entered and electronically signed by Vanessa Bishop NP 08/06/23 17:07:
Bacteremia: management as per hospitalist. Improving on abx. No further fevers.
Original Note:
Consultation
-
Date/Time Consultation Requested: 08/06/23 @ 13:30
Date/Time Consultation Performed: 08/06/23 @ 16:00
Requesting Provider: Dr. Batista
Performing Provider: FLAKITA Briscoe; Dr. Laboy
Reason for Consultation: rectal bleeding
Medical History
Chief Complaint / HPI
Chief Complaint: Lethargy and weakness
History of Present Illness:
The patient is an 87-year-old female with a past medical history significant for paroxysmal atrial fibrillation on Eliquis, CHF, mild dementia, hypertension, who initially presented to the emergency room on 08/03 with complaints of lethargy and
weakness. We are being asked to evaluate for rectal bleeding. The patient's daughter is at the bedside to assist with translation given the patient's language barrier. She notes that her mother had been having some constipation prior to the
weekend. She noted that in the trash can there was some toilet paper that had traces of bright red blood on it. She questioned her mother on this and reported that she had been constipated and was straining to move her bowels. She notes that this
happens from time to time with an insignificant amounts of bleeding. She noted that her mother became progressively lethargic and weak with development of fevers on Sunday which is unusual for her. She notes about 1 year ago she was hospitalized
for sepsis secondary to a urinary tract infection. She does not take any laxatives on a regular basis as she only has occasional constipation. She notes that since February she had been on a water pill and has had some increased episodes of
constipation since that time. She notes that her mother does not drink enough water on a regular basis. She also does not eat enough fiber or take a fiber supplement. She has had some mild weight loss ~5-10 lbs but unclear if this is from her
fluid as she is on a diuretic. She otherwise denies any nausea, vomiting, heartburn, abdominal pain, further fevers or chills, chest pain, shortness of breath, dizziness, lightheadedness, or syncope. She denies any melena or overt hematochezia.
She has never had a colonoscopy in the past. She has never had an EGD. She continues on Eliquis during this admission. She has had no significant bleeding since yesterday. She was started on MiraLAX and Anusol suppositories for management of
constipation and suspected possible hemorrhoids. She had fevers as high as 102.9. Her UA showed concern for infection, with preliminary urine culture showing gram-negative bacilli. She had blood cultures drawn as well which 1 was negative the but
the other was growing coagulase-negative Staphylococcus. She underwent a chest x-ray which showed no active disease in the chest with stable cardiomegaly. She was placed on ceftriaxone 1 g every 24 hours IV for suspected UTI. Labs today showed a
hemoglobin of 10.6, WBC 4.3, platelet 185,000, sodium 139, potassium 3.8, BUN 13, creatinine 0.7, magnesium 1.8, calcium 8.7. On admission lactic acid was normal. AST and alk phos was mildly elevated. There is no reported family hx of colon cancer.
She is on Eliquis which has been continued here.
Past Medical History
Past Medical History: Arrhythmias (afib on eliquis), CHF, HTN and Other (mild dementia, chronic intermittent constipation, hx sepsis with UTI)
Past Surgical History: None
Social History
Tobacco: Non-Smoker
Alcohol: None
Drug: None
Living: With Family
Family History
Family History: Reviewed & Not Pertinent
Allergies / Home Medications
Allergy/AdvReac Type Severity Reaction Status Date / Time
No Known Allergies Allergy Verified 04/06/23 17:14
�Medication �Instructions �Recorded
apixaban 5 mg tablet (Eliquis) 5 mg PO BID #0 tabs 02/03/23
diltiazem HCl 120 mg capsule,24 120 mg PO BID 08/04/23
hr,extended release
furosemide 20 mg tablet 20 mg PO DAILY 08/04/23
Review of Systems
-
History Source: Patient
Constitutional: Reports Fever and Weight Loss (mild 5-10 lbs)
EENT: Reports No Symptoms
Respiratory: Reports No Symptoms
Cardiac: Reports No Symptoms
Abdomen/GI: Reports Constipated and Other (rectal bleeding)
Musculoskeletal: Reports No Symptoms
Skin: Reports No Symptoms
Neurological: Reports No Symptoms
Endocrine: Reports No Symptoms
Vital Signs
Temp Pulse Resp BP Pulse Ox
98.0 F 66 18 145/78 94
08/06/23 15:30 08/06/23 15:30 08/06/23 15:30 08/06/23 15:30 08/06/23 15:30
Physical Exam
Exam
General: Well Developed, Well Nourished, Comfortable and Other (elderly appearing female in NAD)
HEENT: Normocephalic, Anicteric and Atraumatic
Respiratory: Clear
Cardiac: S1/S2 and Regular Rhythm
Breast: Deferred by me
GI: Soft, Non Tender, Non Distended and Normal Bowel Sounds
Rectal: Other (scant light brown stool on rectal exam, no blood, no obvious bleeding hemorrhoids, limited exam 2/2 to pt being tense)
Musculoskeletal: No Edema
Skin: Warm and Dry
Neuro: Awake and Alert
Psych: Calm
Results
WBC 4.3 10^3/uL (4.8-10.8) L 08/06/23 12:55
Hgb 10.6 g/dL (12.0-16.0) L 08/06/23 12:55
Hct 32.0 % (37.0-47.0) L 08/06/23 12:55
MCV 85.1 fL (81.0-99.0) 08/06/23 12:55
Plt Count 185 10^3/uL (130-400) 08/06/23 12:55
Absolute Neuts (auto) 7.5 10^3/uL (1.4-6.5) H 08/04/23 20:00
Sodium 139 mmol/L (135-145) 08/05/23 06:21
Potassium 3.8 mmol/L (3.5-5.1) 08/05/23 06:21
Chloride 109 mmol/L (98-107) H 08/05/23 06:21
Carbon Dioxide 23 mmol/L (22-30) 08/05/23 06:21
BUN 13 mg/dl (7-17) 08/05/23 06:21
Creatinine 0.7 mg/dL (0.6-1.0) 08/05/23 06:21
Calcium 8.7 mg/dl (8.4-10.2) 08/05/23 06:21
Total Bilirubin 0.7 mg/dl (0.2-1.3) 08/04/23 20:00
AST 38 U/L (14-36) H 08/04/23 20:00
ALT 29 U/L (0-35) 08/04/23 20:00
Alkaline Phosphatase 132 U/L (38-126) H 08/04/23 20:00
Diagnostic Image Results:
08/04/23 CXR: IMPRESSION: No acute disease of the chest. Cardiomegaly. Stable
Prior GI Procedures:
EGD: none
Colonoscopy: none
Assessment / Plan
-
The patient is an 87-year-old female with a past medical history significant for paroxysmal atrial fibrillation on Eliquis, CHF, mild dementia, hypertension, who initially presented to the emergency room on 08/03 with complaints of lethargy and
weakness and was found to have a UTI started on ceftriaxone IV. Urine culture did show gram-negative bacilli with sensitivities pending. She was also reporting intermittent rectal bleeding, with recent constipation and straining per the patient's
daughter. Her hemoglobin has been stable in the range of 10-11 which appears to be baseline from labs in 2022. She has had no rectal bleeding today. She has never had a colonoscopy.
Problem list:
-UTI/sepsis
-fever
-rectal bleeding
-constipation
-mild dementia
-mild normocytic anemia, stable
-mildly elevated AST/alk phos, very minimally elevated
Other pertinent medical hx:
-PAfib on Eliquis
-CHF
-HTN
Recommendations:
-Etiology of rectal bleeding possibly 2/2 hemorrhoids with recent constipation v diverticular v other. She has never had a colonoscopy therefore cannot rule out underlying polyps or malignancy.
---I discussed with the patient and her daughter at the bedside regarding the possible etiology behind her rectal bleeding (her daughter assisted with translation). I advised her that we cannot rule out an underlying malignant process without
direct visualization, especially given she has never had a colonoscopy. I did ask her if she would consider a colonoscopy, in which she defers at this time.
-She should continue on Anusol suppositories once nightly for 7 to 10 days, then use as needed.
-She should also maintain a regular bowel regimen to keep her bowels moving daily to every other day. Can continue on MiraLAX 1 capful daily along with a stool softener once daily.
-Would repeat hemoglobin in the a.m., if stable okay for discharge from GI standpoint.
-She can continue her Eliquis
-If she has any severe bleeding she should return to the emergency room, otherwise we will have her follow-up in the office in 4 to 6 weeks to further discuss her constipation and possibility of a colonoscopy. Given her age and chronic medical
problems, she would be at higher risk for procedures but can review again at the time of her office visit.
-No further recommendations at this time, will sign off. please call back with questions or concerns.
Data Reviewed
-
Old Records: Reviewed
-
-
Thank you for consultation and allowing me to participate in the patient's care. Please call the transmission tester GI physician during the after hours with any questions or concerns.
--- NOTE | 2023-08-06 16:03 | CM ---
IMM signed and placed on chart. Referral for [facility] sent via [facility].
[2023-08-06 19:15] VITALS: BP 127/60
[2023-08-06] MEDS: ANUSOL HC 25 MG RECTAL (20:52)
[2023-08-06] MEDS: COLACE 100 MG PO (20:52)
[2023-08-06] MEDS: ROCEPHIN 1000 MG IV (20:53)
[2023-08-06] MEDS: STERILE WATER FOR INJECTION 10 ML IV (20:53)
[2023-08-06 23:18] VITALS: BP 127/70
[2023-08-07 03:41] VITALS: BP 107/62
[2023-08-07 06:00] VITALS: BMI 32.7
[2023-08-07 07:36] LABS: Hematocrit 32.6 % (37.0-47.0); Hemoglobin 10.5 g/dL (12.0-16.0); Mean Corp Hgb Conc. 32.2 g/dL (33.0-37.0); Mean Corpuscular Hgb 27.9 pg (27.0-31.0); Mean Corpuscular Volume 86.5 fL (81.0-99.0); Mean Platelet Volume 9.6 fL (7.4-10.4); Platelet Count 194 10^3/uL (130-400); Red Blood Cell Count 3.77 10^6/uL (4.20-5.40); Red Cell Dist. Width 15.4 % (11.5-14.5); White Blood Cell Count 5.6 10^3/uL (4.8-10.8)
[2023-08-07 07:40] VITALS: BP 146/79
[2023-08-07] MEDS: CARDIZEM CD 120 MG PO (09:36)
[2023-08-07] MEDS: ANUSOL HC 25 MG RECTAL (09:37)
[2023-08-07] MEDS: COLACE 100 MG PO (09:37)
[2023-08-07] MEDS: ELIQUIS 5 MG PO (09:37)
[2023-08-07] MEDS: MIRALAX 17 GRAMS PO (09:37)
[2023-08-07 11:20] VITALS: BP 137/67
[2023-08-07 15:00] VITALS: BP 143/77
--- NOTE | 2023-08-07 15:07 | W.PN.HOSP.TC ---
Today's Communication/Plan
-
dc
Assessment / Plan
Assessment / Plan
Sepsis secondary Urinary Tract Infection
-Resolved fever and improved clinical status
-EColi UTI
- Swithc to oral Augmentin for 3 days
Gram-positive cocci bacteremia-1 out of 2. 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
Hemorrhoidal vs Anal Fissure Bleeding secondary to Constipation
-cw Miralax
-Recurrent rectal bleeding noted here -appt GI;pt on eliquis.
-Family and patient wanting to hold on colonoscopy
-Continue with Anusol treatments. H&H has been stable. Continue with Eliquis for
Paroxysmal Atrial Fibrillation
-Continue Eliquis for anticoagulation
-Continue diltiazem for rate control - she is supposed to on ER formulation once a day per Card RAIN Benitez.
Cardiomyopathy / Chronic HFpEF
-Continue lasix on DC
-
Mild Dementia
-Monitor for mood/behavior changes during hospitalization
DVT proph: Eliquis
Code Status: Full Code
Discussed with the daughter at bedside including diagnosis, treatment and follow-up plan.
Total time of discharge 32 minutes
Anticipated Discharge: Today
Subjective/Interval History
-
Date of Service: August 07, 2023
Daughter at bedside who is the ssas developer.
Improved frequency. No dysuria. No fever or chills. No nausea vomiting. She had a bowel movement today and no blood in the stools with that .
Objective Data
-
Labs:
Laboratory Results
08/07/23
07:16
WBC 5.6
Hgb 10.5 L
Hct 32.6 L
Plt Count 194
Vital Signs:
Vital Signs
Temp Pulse Resp BP Pulse Ox
97.6 F 66 18 137/67 96
08/07/23 11:20 08/07/23 11:20 08/07/23 07:40 08/07/23 11:20 08/07/23 13:45
I&O
08/06/23 08/07/23 08/08/23
06:59 06:59 06:59
Intake Total 900 / 900 1480 / 1480
Output Total 150 / 150
Balance 750 / 750 1480 / 1480
Review of Systems
-
Respiratory: Denies Trouble Breathing
Cardiac: Denies Chest Pain
Abdomen/GI: Denies Abdominal Pain
Neuro: Denies Dizzy
Physical Exam
-
General: No Apparent Distress
HEENT: Moist Mucous Membranes
Respiratory: Clear to Auscultation
Cardiac: Regular Rhythm and S1/S2
GI: Soft
Neuro: AO x 3
Psych: Calm; Negative Confused (per daughter) or Agitated
Data Reviewed
-
Labs: Labs Reviewed by me
--- NOTE | 2023-08-07 15:32 | CM ---
Addendum entered by Benita Rayo 08/07/23 16:22:
Pt accepted by [facility]
Original Note:
CM reviewed chart and noted dc order
Call with [facility] to follow up on referral sent in [facility] ([phone])
[facility] does have access to [facility]
Verbal referral provided and clinicals faxed to [phone]
Awaiting outcome of referral
VN order requested
Bedside update to pt and dtr
Discharge Disposition- home with [facility]
Fax- [phone]
--- NOTE | 2023-08-07 16:31 | PTCARENOTE ---
Patient discharged home with VN. This RN removed patient's IV and telemetry pack, discharge instructions/medications reviewed with patient and patient's daughter who verbalized understanding. Patient assisted in dressing by daughter, belongings
gathered in room independently by daughter. Patient being transported home by daughter, taken down to car at main lobby via staff escort and wheelchair.
== END 2023-08-07 16:43 | disposition home health service (06) | DRG 872 ==
LOC: 2 NORTH 22:08
PROVIDERS: Physician Assistant Medical; ADMITTING PHYSICIAN Hospitalist; ATTENDING PHYSICIAN Internal Medicine; CONSULT PHYSICIAN Internal Medicine Gastroenterology; EMERGENCY PHYSICIAN Emergency Medicine; FAMILY PHYSICIAN Internal Medicine
DX: A41.9 Sepsis, unspecified organism (principal); N39.0 Urinary tract infection, site not specified; I50.32 Chronic diastolic (congestive) heart failure; I42.9 Cardiomyopathy, unspecified; K59.00 Constipation, unspecified; K60.2 Anal fissure, unspecified; K64.9 Unspecified hemorrhoids; I11.0 Hypertensive heart disease with heart failure; I48.0 Paroxysmal atrial fibrillation; B96.20 Unspecified Escherichia coli [E. coli] as the cause of diseases classified elsewhere; F03.A0 Unspecified dementia, mild, without behavioral disturbance, psychotic disturbance, mood disturbance, and anxiety; Z77.22 Contact with and (suspected) exposure to environmental tobacco smoke (acute) (chronic); E78.00 Pure hypercholesterolemia, unspecified; D64.9 Anemia, unspecified; R79.89 Other specified abnormal findings of blood chemistry; Z11.52 Encounter for screening for COVID-19; Z79.01 Long term (current) use of anticoagulants
CPT/HCPCS: 51701; 71046; 80048; 80053; 81003; 81015; 83605; 83735; 85025; 85027; 87040; 87077; 87086; 87147; 87186; 87205; 87811; 93005; 96361; 96374; 97116; 97162; 97166; 97535; 99285

== ENCOUNTER 2023-09-01 17:34 | Inpatient (IN) | payer OTHER, SELFPAY ==
[2023-09-01] VITALS (9 sets, daily range): BP systolic 109–159; BP diastolic 71–103; BMI 39.6; BMI 42.3
[2023-09-01 14:49] LABS: % Basophils 0.3 % (0-2); % Eosinophils 3.3 % (0-6); % Immature Granulocytes 0.5 % (0-0.5); % Lymphocytes 15.5 % (20.5-51.1); % Monocytes 7.4 % (1.7-9.3); Absolute Eosinophils 0.2 10^3/uL (0-0.7); Absolute Monocytes 0.5 10^3/uL (0.1-0.6); Absolute Neutrophils 4.5 10^3/uL (1.4-6.5); Hematocrit 34.8 % (37.0-47.0); Hemoglobin 11.7 g/dL (12.0-16.0); Mean Corp Hgb Conc. 33.6 g/dL (33.0-37.0); Mean Corpuscular Hgb 28.7 pg (27.0-31.0); Mean Corpuscular Volume 85.3 fL (81.0-99.0); Mean Platelet Volume 9.8 fL (7.4-10.4); Nucleated Red Blood Cells % 0 %; Platelet Count 201 10^3/uL (130-400); Red Blood Cell Count 4.08 10^6/uL (4.20-5.40); Red Cell Dist. Width 15.9 % (11.5-14.5); White Blood Cell Count 6.1 10^3/uL (4.8-10.8)
[2023-09-01 15:04] LABS: ALT (SGPT) 15 U/L (0-35); AST (SGOT) 24 U/L (14-36); Alkaline Phosphatase 108 U/L (38-126); Blood Urea Nitrogen 15 mg/dl (7-17); Calcium 8.8 mg/dl (8.4-10.2); Carbon Dioxide 22 mmol/L (22-30); Chloride 105 mmol/L (98-107); Estimated Creatinine Clearance 50 ml/min; Glucose 100 mg/dl (70-99); Potassium 4.1 mmol/L (3.5-5.1); Sodium 137 mmol/L (135-145); Total Protein 7.3 g/dl (6.3-8.2); eGFR > 60.00
[2023-09-01 15:05] LABS: COVID-19 Antigen Negative (Negative)
--- NOTE | 2023-09-01 15:47 | ED.GENMED ---
History of Present Illness
General
Chief Complaint: Breathing Problem
Time Seen by Provider: 09/01/23 14:52
History of Present Illness
History of Present Illness:
87-year-old female with history of atrial fibrillation on Eliquis and diltiazem presenting to the emergency department for cough, fever, hypoxia. Patient presents from home. Per daughter, oxygen saturations were in the 80s prior to arrival. She
also had a fever earlier this morning. She recently started an adult daycare, and they are concerned that she contracted an infection. She has also been coughing. Patient herself denies difficulty breathing, however family reports that patient is
always stoic, without acute complaints. They report her medications for her A-fib were recently adjusted including an increase of her diltiazem.
Past History
Past History
ED Past Medical History: Arrthythmia (afib), HTN, Hypercholesterolemia and Other (uti)
ED Past Surgical History: None
Social History
Tobacco: Non-smoker
Alcohol: None
Drug: None
Personal:
Living: with family
Phy Exam
Physical Exam
Physical Exam:
General: Well-appearing, no clinical signs of dehydration, nontoxic and in no acute distress
HEENT: protecting airway
Neck: appears supple
CV: Irregularly irregular rhythm, tachycardic
Resp: Mild increased work of breathing, rhonchorous breath sounds bilaterally
Abd: Soft and non-distended, no tenderness to palpation
Extremities: No deformities, no swelling, no erythema
Neuro: alert, no focal neurologic deficit
: deferred
Rectal: deferred
Psych: Normal affect
Skin: Intact
Scores
Heart Failure Risk
Heart Failure Risk Score: Not Applicable
Course
Orders/Labs/Results
Orders:
Orders
09/01/23 13:55
EKG [Electrocardiogram (*1)] Urgent
Reason for Study: Shortness of Breath
09/01/23 13:56
EKG- Treatment ONCE
09/01/23 14:41
CMP [Comprehensive Metabolic Panel] Urgent
COVID-19 Antigen Urgent
Source: Nasal Swab
Complete Blood Count/With Diff Urgent
Influenza A+B Rapid Molecular Urgent
PRABHJOT Source: Nasal Swab
Specimen Description:
09/01/23 Dinner
Cholesterol Lowering
At Your Request: Non-Participating
09/01/23 15:23
CR Chest - 2 Views Urgent
Comment:
Reason For Exam: cough, fever
09/01/23 15:24
0.9% Sodium Chloride 1000 ml [Nss] 1,000 ml IV BOLUS
09/01/23 16:15
Lactic Acid Urgent
09/01/23 16:29
Azithromycin 500 mg/250 ml [Zithromax Infusion] 500 mg in 250 ml IV NOW
CefTRIAXone [Rocephin] 1,000 mg IV NOW STA
09/01/23 16:35
Diltiazem HCl [Cardizem] 10 mg IV NOW STA
Ipratropium/Albuterol Sulfate [Duoneb] 3 ml INH R NOW ONE
09/01/23 17:11
Admit/Transfer Patient As Directed
Co-Sign Provider:
Level of Care: Inpatient admission
Assign to:: Telemetry
Physician / Group: Lynn
Diagnosis: Rapid Afib, pneumonia
Reason for Telemetry: Arrhythmia
Date to Stop Telemetry: 09/04/23
Time to Stop Telemetry: 11:00
Reason for Hospitalization: HR control, pneumonia treatment
Expected length of stay greater than two midnights?: Yes
ELOS- Estimated Length of Stay in days: 3
I certify the patient meets the requirements for IP care: Yes
09/01/23 17:13
Code Status As Directed
Resuscitation Status: Full Code
09/01/23 19:20
Acetaminophen [Tylenol] 650 mg PO Q6HPRN PRN
Albuterol [ProAIR HFA INHALER] 2 puff INH R Q4HPRN PRN
Diltiazem 125 mg/125 ml Nss [Cardizem] 125 mg in 125 ml IV PER PROTOCOL
Initial dose in mg/hr, then titrate:: 5
Titrate to keep:: Heart rate 80-100 bpm
Titrate by mg/hr:: 5 mg/hr
Frequency of titrations (minutes):: 15
Maximum dose in mg/hr:: 15
Polyethylene Glycol Powder [Miralax] 17 grams PO DAILY
09/01/23 19:20
Activity As Directed
Activity Level: With Assistance
Acapella [Rx Pep / Acapela] [RESP] Routine
Incentive Spirometry [Rx Incentive Spirometry] [RESP] Routine
Frequency: q1h while awake
Ot Eval And Treat Routine
Pt Eval And Treat Routine
Activity Level: Ambulate
09/01/23 20:00
Apixaban [Eliquis] 5 mg PO BID
Dexamethasone Sod Phosphate [Decadron] 4 mg IV Q8H
Diltiazem Extended Release [Cardizem Cd] 120 mg PO Q12
Guaifenesin [Mucinex] 600 mg PO Q12
09/02/23 08:00
Furosemide [Lasix] 20 mg PO DAILY
09/02/23 16:00
Azithromycin [Zithromax] 500 mg PO DAILY@1600
CefTRIAXone [Rocephin] 1,000 mg IV Q24H
09/04/23 11:00
DC Protocol for Telemetry ONCE
Abnormal Lab Results
09/01/23
14:41
RBC 4.08 L 10^6/uL
(4.20-5.40)
Hgb 11.7 L g/dL
(12.0-16.0)
Hct 34.8 L %
(37.0-47.0)
RDW 15.9 H %
(11.5-14.5)
Absolute Lymphs (auto) 1.0 L 10^3/uL
(1.2-3.4)
Lymphocytes % 15.5 L %
(20.5-51.1)
Glucose 100 H mg/dl
(70-99)
09/01/23 14:41
09/01/23 14:41
Vital Signs
Initial and Last Documented VS:
Initial Vital Signs
Temp Pulse Resp BP Pulse Ox
99.3 F 129 22 159/93 93
09/01/23 13:51 09/01/23 13:51 09/01/23 13:51 09/01/23 13:51 09/01/23 13:51
Last Documented Vital Signs
Temp Pulse Resp BP Pulse Ox
98.8 F 133 22 109/81 91
09/01/23 19:32 09/01/23 21:18 09/01/23 21:18 09/01/23 19:32 09/01/23 21:18
MDM/Problems Addressed
MDM/Problems Addressed:
87-year-old female with history of A-fib on Eliquis and diltiazem presenting for cough, fever, hypoxia. Vital signs on arrival significant for tachycardia.
On exam, patient in no acute distress, however does have slight increased work of breathing. Mildly low oxygenation. Patient is meeting SIRS criteria. Concern for sepsis from pulmonary process. Plan for laboratory analysis, lactic acid, chest
x-ray imaging, viral panel. Will start on IV fluids. Will likely require admission.
16:30 -blood pressure remained stable without concern for severe sepsis or septic shock. Chest x-ray shows evidence of pneumonia. Will start patient on antibiotics for community-acquired pneumonia. Again feel patient warrants inpatient admission
given respiratory status and low oxygenation. Patient and family agreeable to plan.
*Critical Care Note
Total Time (30-74mins, 75-104mins- exclusive of procedures): Not Applicable
ED Attending Note
-
Portions of this chart may have been created with voice recognition software.� Occasional wrong word or��sound alike� substitutions may have occurred due to the inherent limitations of voice recognition software.
Discharge Plan
Departure
Patient Disposition: Admit
Date of Disposition: 09/01/23
Time of Disposition: 16:37
Presentation/result/management discussed w/ accepting MD/DO: Hospitalist
Patient with high blood pressure during this ER visit?: No
Condition: Fair
Discharge Problem:
Community acquired pneumonia, Atrial fibrillation
Interventions
Interventions:
*Risk Screen - Suicide Last Done: 09/01/23 20:04
*General Assessment Last Done: 09/01/23 13:51
*Neglect/Abuse Screening Last Done: 09/01/23 14:24
ED- Fall Risk Assessment Last Done: 09/01/23 14:26
*ED COVID-19 Vaccine History Last Done: 09/01/23 20:04
*Nursing Disposition Last Done: 09/01/23 19:02
ED- Cardiac Assessment Last Done: 09/01/23 14:25
ED- Pulmonary Assessment Last Done: 09/01/23 14:25
Discharge Date and Time
Discharge Date/Time: 09/01/23 19:02
[2023-09-01] MEDS: NSS 1000 IV (16:13)
[2023-09-01] MEDS: ZITHROMAX INFUSION 250 IV (16:45)
[2023-09-01] MEDS: CARDIZEM 10 MG IV (16:46)
[2023-09-01] MEDS: DUONEB 3 ML INH (16:46)
[2023-09-01] MEDS: ROCEPHIN 1000 MG IV (16:46)
--- NOTE | 2023-09-01 17:17 | HPS.HSE ---
Family Physician
-
Family Physician: Ness Mckenzie
Chief Complaint
-
Cough, shortness of breath
History of Present Illness
87-year-old Citizen Of [place] female here with symptoms of cough and shortness of breath. Onset unclear but family believes over the past 24 hours she has gotten worse. Patient cannot provide any history due to language barrier and underlying dementia.
Information gathered by speaking with family members.
Medical History
Past Medical History
Past Medical History: Reports Other
Additional Past Medical History:
Paroxysmal atrial fibrillation
Essential hypertension
Hyperlipidemia
Hemorrhoids
Chronic heart failure preserved EF
Mild dementia
Past Surgical History: Reports None
Social History
Tobacco: Non-smoker
Alcohol: None
Drug: None
Family History
Family History: Not pertinent
Allergies / Home Medications
Allergies reflects when Allergies were last updated in [employer].
Home Medications with original date entered in [employer]
Allergy/Medication List:
Allergies
Allergy/AdvReac Type Severity Reaction Status Date / Time
No Known Allergies Allergy Verified 09/01/23 13:55
Home Medications
apixaban 5 mg tablet (Eliquis) 5 mg PO BID #0 tabs 02/03/23
furosemide 20 mg tablet 20 mg PO DAILY 08/04/23
amoxicillin 875 mg-potassium clavulanate 125 mg tablet 1 tab PO BID #6 tabs 08/07/23
diltiazem HCl 120 mg capsule,24 hr,extended release 120 mg PO DAILY #0 caps 08/07/23
glycerin-carbomer homopoly type A-potassium hydroxide mucosal solution (MuGard mucosal solution) 5 ml mucous membrane DAILY PRN mouth irritation #240 mL 08/07/23
hydrocortisone acetate 25 mg rectal suppository 25 mg NV DAILY #14 ea 08/07/23
polyethylene glycol 3350 17 gram oral powder packet (HealthyLax) 17 g PO DAILY #30 ea 08/07/23
Review of Systems
-
Unable to obtain full review of systems at this time due to: Language Barrier
History Source: Family
A 12 point ROS was completed and negative except as noted: Yes
Respiratory: Reports Cough and Trouble Breathing
Physical Exam
Vital Signs
Vital Signs
Temp Pulse Resp BP Pulse Ox
98.9 F 107 30 122/90 92
09/01/23 16:32 09/01/23 17:00 09/01/23 17:00 09/01/23 17:00 09/01/23 17:00
Physical Exam
General: Well Developed, Well Nourished, No Apparent Distress, Comfortable and Morbidly Obese
HEENT: NormoCephalic, Anicteric and Moist mucous membranes
Respiratory: Wheezes and Rhonchi
Cardiac: S1/S2, Irregular Rhythm and Tachycardia
Breast: Deferred by me
GI: Soft, Non Tender and Non Distended
Genito-urinary: Deferred by me
Musculoskeletal: No Clubbing, No Cyanosis and No Edema
Skin: Warm and Dry
Neuro: Awake and Alert
Hematologic/Lymphatic: No Lymphadenopathy
Psych: Calm
Laboratory Results
-
09/01/23 14:41
09/01/23 14:41
Laboratory Results
Lactic Acid 1.0 mmol/L (0.7-2.0) 09/01/23 16:15
Total Bilirubin 1.0 mg/dl (0.2-1.3) 09/01/23 14:41
AST 24 U/L (14-36) 09/01/23 14:41
ALT 15 U/L (0-35) 09/01/23 14:41
Alkaline Phosphatase 108 U/L (38-126) 09/01/23 14:41
Impression/Plan
-
Community-acquired pneumonia -chest x-ray with retrocardiac infiltrate. Admit to telemetry. Start broad-spectrum antibiotics. Check cultures, urinary antigens.
Add Mucinex, nebs as needed, steroids for wheezing. Acapella, incentive spirometer.
Rapid atrial fibrillation -likely triggered by acute illness with pneumonia. Family states her Cardizem dose was just increased over the past 24 hours for better rate control. Start IV Cardizem infusion and transition to oral Cardizem at higher
dose. Continue Eliquis. Has underlying paroxysmal atrial fibrillation.
Recent hospitalization for sepsis and UTI -July 2023.
Chronic heart failure preserved EF -no signs of exacerbation.
Essential hypertension -stable.
Constipation -with recent lower GI bleed felt to be either hemorrhoidal or anal fissure. Continue bowel regimen.
Mild dementia, likely Alzheimer's type
Morbid obesity due to excess calories
PT/OT
Full code
Daughter updated at the bedside.
[2023-09-01] MEDS: MIRALAX 17 GRAMS PO (21:00)
[2023-09-01] MEDS: DECADRON 4 MG IV (21:00)
[2023-09-01] MEDS: TYLENOL 650 MG PO (21:00)
[2023-09-01] MEDS: MUCINEX 600 MG PO (21:00)
[2023-09-01] MEDS: ELIQUIS 5 MG PO (21:00)
[2023-09-01] MEDS: ProAIR HFA INHALER 2 PUFF INH (21:10)
[2023-09-01] MEDS: CARDIZEM CD PO (21:16)
[2023-09-01] MEDS: CARDIZEM 125 IV (21:38)
--- NOTE | 2023-09-02 01:45 | PTCARENOTE ---
Pt with HR run in 180s while on Cardizem gtt. Pt asleep, asymptomatic- returned to previously sustaining Afib in 120s. GUM MAKER Andreia Alvarado made aware- strips forwarded and placed in chart. STAT BMP, CBC, Mag ordered. No further orders.
[2023-09-02 02:30] LABS: % Immature Granulocytes 0.6 % (0-0.5); % Lymphocytes 13.3 % (20.5-51.1); % Neutrophils 84.1 % (42.2-75.2); Absolute Lymphocytes 0.7 10^3/uL (1.2-3.4); Absolute Monocytes 0.1 10^3/uL (0.1-0.6); Absolute Neutrophils 4.6 10^3/uL (1.4-6.5); Hematocrit 33.3 % (37.0-47.0); Hemoglobin 11.1 g/dL (12.0-16.0); Mean Corp Hgb Conc. 33.3 g/dL (33.0-37.0); Mean Corpuscular Volume 83.9 fL (81.0-99.0); Mean Platelet Volume 9.5 fL (7.4-10.4); Nucleated Red Blood Cells % 0 %; Platelet Count 185 10^3/uL (130-400); Red Blood Cell Count 3.97 10^6/uL (4.20-5.40); White Blood Cell Count 5.4 10^3/uL (4.8-10.8)
[2023-09-02 02:53] LABS: Blood Urea Nitrogen 17 mg/dl (7-17); Calcium 8.7 mg/dl (8.4-10.2); Carbon Dioxide 22 mmol/L (22-30); Chloride 110 mmol/L (98-107); Estimated Creatinine Clearance 37 ml/min; Glucose 213 mg/dl (70-99); Potassium 4.2 mmol/L (3.5-5.1); Sodium 139 mmol/L (135-145); eGFR > 60.00
[2023-09-02 03:00] VITALS: BP 140/86
--- NOTE | 2023-09-02 03:20 | PTCARENOTE ---
Addendum entered by Deejay Lauren RN 09/02/23 06:23:
Pt currently in 120s, BP 124/80 - RESPITE COORDINATOR made aware, instructed to keep Cardizem gtt at 10mg/hr. No further orders.
Original Note:
Pt continues to sustain Afib in 120s while on 5mg/hr Cardizem gtt. RESPITE COORDINATOR made aware, Cardizem increased to 10mg/hr. No further orders.
[2023-09-02] MEDS: DECADRON 4 MG IV ×3 (03:39→21:28)
[2023-09-02 07:29] VITALS: BP 147/116
[2023-09-02] MEDS: MIRALAX 17 GRAMS PO (08:37)
[2023-09-02] MEDS: MUCINEX 600 MG PO ×2 (08:37→21:28)
[2023-09-02] MEDS: LASIX 20 MG PO (08:37)
[2023-09-02] MEDS: ELIQUIS 5 MG PO ×2 (08:37→21:28)
[2023-09-02] MEDS: ProAIR HFA INHALER 2 PUFF INH ×2 (10:48→21:45)
[2023-09-02] MEDS: CARDIZEM CD 120 MG PO ×2 (11:01→21:29)
[2023-09-02 11:25] VITALS: BP 126/86
--- NOTE | 2023-09-02 11:30 | W.PN.HOSP.TC ---
Today's Communication/Plan
-
Continue Cardizem p.o. and IV
Urinary antigens
Continue antibiotics
Nebs, steroids
Acapella, I/S
Assessment / Plan
Assessment / Plan
Gen-awake, alert, mild tachypnea
HEENT-NC, AT, anicteric, clear oral mm
Neck-supple
CV-reg, no M, +S1/S2
Lungs-bilateral scattered rhonchi and wheezes
Abd-soft, NT, ND
Ext-no edema
Musculoskeletal-no cyanosis, clubbing
Skin-warm and dry
Neuro-grossly non-focal
Psych-calm, cooperative
Community-acquired pneumonia -chest x-ray with retrocardiac infiltrate. Febrile last night. WBC count normal. Continue antibiotics. Check urinary antigens. Oxygenation stable on room air. Encourage Acapella, incentive spirometer.
On steroids and nebs for reactive airway disease related to pneumonia.
Influenza negative, COVID-negative.
Rapid atrial fibrillation -likely triggered by acute illness with pneumonia. Family states her Cardizem dose was just increased over the past 24 hours prior to admission for better rate control. Was on Cardizem CD1 120 mg daily and the family
states that the dose was increased to 240 in the morning, 120 in the evening. In the hospital we increased it to 120 mg twice daily but for unclear reasons the patient did not get last night's dose. I spoke with her nurse this morning and she will
give the dose now. Continue Cardizem drip at 10 mg/h. Consult cardiology on Sunday if heart rate is still fast. Discussed with Dr. Davila.
Recent hospitalization for sepsis and UTI -July 2023.
Chronic heart failure preserved EF -no signs of exacerbation.
Essential hypertension -stable.
Constipation -with recent lower GI bleed felt to be either hemorrhoidal or anal fissure. Continue bowel regimen.
Mild dementia, likely Alzheimer's type
Morbid obesity due to excess calories
PT/OT
Full code
Daughter updated at the bedside.
Anticipated Discharge: > 48 hours
Subjective/Interval History
-
Date of Service: September 02, 2023
Patient seen and examined. Breathing improving. No complaints. Daughter at the bedside.
Objective Data
-
Labs:
Laboratory Results
09/02/23 09/02/23
02:13 06:00
WBC 5.4 Cancelled
Hgb 11.1 L Cancelled
Hct 33.3 L Cancelled
Plt Count 185 Cancelled
Sodium 139 Cancelled
Potassium 4.2 Cancelled
Chloride 110 H Cancelled
Carbon Dioxide 22 Cancelled
BUN 17 Cancelled
Creatinine 0.9 Cancelled
Glucose 213 H Cancelled
Calcium 8.7 Cancelled
Vital Signs:
Vital Signs
Temp Pulse Resp BP Pulse Ox
97.4 F 131 22 126/86 93
09/02/23 11:25 09/02/23 11:25 09/02/23 11:25 09/02/23 11:25 09/02/23 11:25
I&O
09/01/23 09/02/23 09/03/23
06:59 06:59 06:59
Output Total 510 / 510
Balance -510 / -510
Review of Systems
-
Unable to obtain full review of systems at this time due to: Language Barrier
--- NOTE | 2023-09-02 11:45 | CM ---
Spoke with patient and daughter Haven bedside.
Patient lives with her other daughter in a 2nd floor condo with stair glide to enter.
Patient has RW and cane at home, but does no always use and daughter pushes mother in WC for long trips.
patient has private caregivers thru [facility] 36/wk and attends adult daycare 3x/week from 10-2.
PCP: Dr Bianchi
Pharmacy: [facility]
Plan: home with [facility]
TC to [facility], , spoke with answering service, no one in office until Sunday.
Will fax referral to [phone] or [phone].
[2023-09-02] MEDS: CARDIZEM 125 IV (12:41)
[2023-09-02 15:36] VITALS: BP 146/89
[2023-09-02] MEDS: ZITHROMAX 500 MG PO (16:01)
[2023-09-02] MEDS: STERILE WATER FOR INJECTION 10 ML IV (16:09)
[2023-09-02] MEDS: ROCEPHIN 1000 MG IV (16:10)
[2023-09-02 19:00] VITALS: BP 135/65
[2023-09-02 23:00] VITALS: BP 134/84
[2023-09-03] MEDS: CARDIZEM 125 IV ×2 (02:48→22:21)
--- NOTE | 2023-09-03 03:02 | PTCARENOTE ---
Pt's daughter called for RN stating that pt's wheezing sounded like it was getting worse. Earlier pt had an albuterol treatment by respiratory and the RT stated that it is not from her lungs, it is her heart that is causing the wheezing. Pt's vitals
were stable at 92% on RA, respiratory rate 20, BP 123/77, HR 136(pt on cardizem drip for this), temp 97.7f. RAILROAD WHEELS AND AXLES INSPECTOR contacted and she said pt is receiving antibiotics for pna and that the wheezing is to be expected. Explained to patient's daughter that
she is on antibiotics and that all vitals are stable and we can always add O2 if she needs it. Will continue to monitor for any signs of distress.
[2023-09-03 03:30] VITALS: BP 123/77
[2023-09-03] MEDS: DECADRON 4 MG IV ×3 (04:34→20:19)
[2023-09-03 06:00] VITALS: BMI 42.8
--- NOTE | 2023-09-03 06:45 | W.PN.UPDATE ---
Update Note
Progress Note Update
Patient currently on Cardizem drip 10mg/hr, patient is hypotensive with SBP in 90s, hr between 60s to 80s, will place Cardizem drip on hold.
[2023-09-03 07:24] LABS: % Immature Granulocytes 0.4 % (0-0.5); % Lymphocytes 10.6 % (20.5-51.1); Absolute Monocytes 0.3 10^3/uL (0.1-0.6); Absolute Neutrophils 7.8 10^3/uL (1.4-6.5); Hematocrit 33.3 % (37.0-47.0); Hemoglobin 11.1 g/dL (12.0-16.0); Mean Corp Hgb Conc. 33.3 g/dL (33.0-37.0); Mean Corpuscular Hgb 28.4 pg (27.0-31.0); Mean Corpuscular Volume 85.2 fL (81.0-99.0); Nucleated Red Blood Cells % 0.2 %; Platelet Count 203 10^3/uL (130-400); Red Blood Cell Count 3.91 10^6/uL (4.20-5.40); Red Cell Dist. Width 16.2 % (11.5-14.5); White Blood Cell Count 9.1 10^3/uL (4.8-10.8)
[2023-09-03 07:27] VITALS: BP 116/77
[2023-09-03 07:59] LABS: Blood Urea Nitrogen 28 mg/dl (7-17); Carbon Dioxide 20 mmol/L (22-30); Chloride 110 mmol/L (98-107); Estimated Creatinine Clearance 48 ml/min; Glucose 149 mg/dl (70-99); Potassium 4.5 mmol/L (3.5-5.1); Sodium 139 mmol/L (135-145); eGFR > 60.00
[2023-09-03] MEDS: CARDIZEM CD 120 MG PO ×2 (09:12→20:17)
[2023-09-03] MEDS: MUCINEX 600 MG PO ×2 (09:12→20:18)
[2023-09-03] MEDS: MIRALAX 17 GRAMS PO (09:12)
[2023-09-03] MEDS: ELIQUIS 5 MG PO ×2 (09:12→20:18)
[2023-09-03] MEDS: LASIX 20 MG PO (09:12)
[2023-09-03 11:22] VITALS: BP 152/84
--- NOTE | 2023-09-03 11:30 | CON.CAR ---
Addendum entered and electronically signed by Cruz Dejesus MD 09/03/23 13:52:
I saw and examined the patient.
The [employer] or PA's note was reviewed and I agree with the note.
Comment: General: Well developed, well nourished in NAD.
Neck: Supple, no JVD, HJR, carotids +2 B/L, no bruits bilaterally.
Heart: Non displaced PMI, regular, tachycardic, no murmurs, No S3, S4, no rubs.
Lungs: Scattered rhonchi
Extremities: No clubbing, cyanosis or edema bilaterally.
Neuro: Grossly nonfocal, awake, alert and oriented x3.
Tanika has a history of A-fib, CAD with remote IN, hypertension, hyper anemia, UTI bacteremia. She was admitted with palpitations and rapid heart rate as well as shortness of breath. Of note Cardizem and increase as an outpatient due to concerns
of rapid heartbeat. [place] to have pneumonia on x-ray and also given nebulizers and steroids for wheezing. She continues to wheeze and cardiology is consulted for tachycardia.
Appears to be a poorly controlled atrial tachycardia. She is already on IV Cardizem. Will load with amiodarone. Will also give a dose of IV Lasix with the possibility that wheezing may represent CHF. Will check BNP
Original Note:
Consultation
Consultation Request
Date/Time Consultation Requested: 09/03/2023
Date/Time Consultation Performed: 09/03/2023
Requesting Provider: Dr. Anand
Performing Provider: Adilene Alvarenga PA-C for Dr. Cruz Dejesus
Reason for Consultation: Atrial fibrillation with rapid ventricular response
Medical History
-
Chief Complaint: F/C, SOB
History of Present Illness:
87-year-old woman past medical history paroxysmal atrial fibrillation, CAD with remote IN, hypertension, hyperlipidemia, UTI/bacteremia who presented to emergency department 09/01/2023 with complaints of palpitations, elevated heart rate, shortness
of breath and cough. Cardizem recently increased as outpatient due to concerns of elevated heart rate noted by VN. Patient was noted to have concern for pneumonia on chest x-ray and started on broad-spectrum antibiotics, along with nebulizer and
steroids for wheezing. COVID-negative. EKG showed atrial fibrillation with rapid ventricular response. Patient placed on IV Cardizem drip. However patient did develop hypotension and drip was discontinued on morning of 09/03/2023.
This history is obtained through her daughter who is at bedside and chart review
PMHx:
Paroxysmal AFib
Chronic anticoagulation on Eliquis
Possible remote prior [place] (10 yrs prior in [facility])
HTN
HLD
Heart failure with preserved ejection fraction
History of UTI/E. coli bacteremia
Dementia
Hemorrhoids
Past Medical History
Past Medical History: Other (as above)
Past Surgical History: None
Social History
Tobacco: Non-Smoker
Alcohol: None
Drug: None
Living: With Family (daughter)
Family History
Family History: Reviewed & Not Pertinent
Allergies / Home Medications
Allergy/AdvReac Type Severity Reaction Status Date / Time
No Known Allergies Allergy Verified 09/01/23 13:55
�Medication �Instructions �Recorded �Confirmed �Type
apixaban 5 mg tablet (Eliquis) 5 mg PO BID #0 tabs 02/03/23 09/01/23 Rx
furosemide 20 mg tablet 20 mg PO DAILY Fluid 08/04/23 09/01/23 History
Retention/Swelling
glycerin-carbomer homopoly type 5 ml mucous membrane DAILY PRN 08/07/23 Rx
A-potassium hydroxide mucosal mouth irritation #240 mL
solution (MuGard mucosal solution)
amoxicillin 875 mg-potassium 1 tab PO BID Infection 09/02/23 History
clavulanate 125 mg tablet
diltiazem HCl 120 mg capsule,24 120 mg PO DAILY Heart 09/02/23 History
hr,extended release Disease/Condition
hydrocortisone acetate 25 mg 25 mg KS DAILY INFLAMMATION 09/02/23 History
rectal suppository
polyethylene glycol 3350 17 gram 17 g PO DAILY Gastrointestinal 09/02/23 History
oral powder packet (HealthyLax) Issue
Review of Systems
-
History Source: Patient and Family
All other systems: Negative unless noted
Physical Exam
Vital Signs
Temp Pulse Resp BP Pulse Ox
98.1 F 141 21 152/84 92
09/03/23 11:22 09/03/23 11:22 09/03/23 11:22 09/03/23 11:22 09/03/23 11:22
GEN: No acute distress but does appear to be short of breath, awake, Ox3 sitting up in bed
HEENT: supple, anicteric, mmm
LUNGS: Bilateral diffuse anterior and posterior expiratory wheezes; appears short of breath on room air
CV: Distant heart tones, irregularly irregular, tachycardic, S1/S2, no murmur, rub or gallop
ABD: soft, BS+, NT/ND
EXT: No edema, clubbing or cyanosis
NEURO: Gross non-focal
SKIN: No rash, warm, dry, pink
Lab Results
09/03/23 07:04
09/03/23 07:04
Impression / Plan
-
Family Physician: Ness Mckenzie
Vac Press Operator: Dr. Wilde
Impression:
Presented 09/01/2023 with shortness of breath, cough, palpitations and elevated heart rate
Pneumonia
Atrial fibrillation/flutter with RVR
Paroxysmal AFib
Chronic anticoagulation on Eliquis
Chronic heart failure with preserved ejection fraction
Possible remote prior [place] (10 yrs prior in [facility])
HTN
HLD
Heart failure with preserved ejection fraction
History of UTI/E. coli bacteremia
Dementia
Hemorrhoids
Echo 05/15/23: LVEF 55%, mod LVH, no sig valve dz, PASP 32 mmHg
Echo 08/03/2022: EF 55 to 60%, possible mild hypokinesis of the basal to mid anteroseptal guadalupe but poor endocardial definition, stage II diastolic dysfunction, thickened mitral valve leaflets with dense MAC, trace MR, mild TR, estimated PAP 45 mmHg
Plan:
-Presented 09/01/2023 with shortness of breath, cough, palpitations and elevated heart rate
-Concern for pneumonia. Patient getting antibiotics, steroids and nebulizer treatment.
-Paroxysmal atrial fibrillation with rapid ventricular response. She was noted to be in sinus rhythm at last office visit in May.
-Placed on Cardizem drip at 10 mg/hr. Heart rates improved and she had brief hypotension SBP 90's on morning of 09/03/2023. Cardizem drip placed on hold.
-Unfortunately heart rate elevated and patient is now hypertensive. Cardizem drip resumed at 5 mg/hr late but HR remains suboptimal in the 140's bpm and BP elevated. Increase Diltiazem gtt to 7.5 mg/hr and closely montior vitals. Agree with
continuing oral Cardizem as well
-Still wheezing on exam. Once more stable from pulmonary standpoint could consider cardioversion
-Patient on chronic anticoagulation with Eliquis and denies missing or skipping any doses. Hgb stable 11.1
-Check TSH
-History of chronic heart failure with preserved ejection fraction. Weight is up 5-6 lbs from prior admission, although she does not appear to be acutely volume overload on examination but wheezing. Check proBNP. Continue oral Lasix.
Discussed with nursing and daughter who helps translate at bedside
HPI 09/03/2023:
87-year-old woman past medical history paroxysmal atrial fibrillation, CAD with remote IN, hypertension, hyperlipidemia, UTI/bacteremia who presented to emergency department 09/01/2023 with complaints of palpitations, elevated heart rate, shortness
of breath and cough. Cardizem recently increased as outpatient due to concerns of elevated heart rate noted by VN. Patient was noted to have concern for pneumonia on chest x-ray and started on broad-spectrum antibiotics, along with nebulizer and
steroids for wheezing. COVID/Flu-negative. EKG showed atrial fibrillation with rapid ventricular response. Patient placed on IV Cardizem drip. However patient did develop hypotension and drip was discontinued on morning of 09/03/2023.
This history is obtained through her daughter who is at bedside and chart review
Data Reviewed
-
EKG: Report Reviewed by me, Discussed with Physician, Discussed with Nurse, Discussed with Patient and Discussed with Family
Radiology: Report Reviewed by me, Discussed with Physician, Discussed with Nurse, Discussed with Patient and Discussed with Family
Labs: Labs Reviewed by me, Discussed with Physician, Discussed with Nurse, Discussed with Patient and Discussed with Family
Old Records: Reviewed
[2023-09-03] MEDS: ProAIR HFA INHALER 2 PUFF INH (11:34)
[2023-09-03] MEDS: ATROVENT NEBULES 0.5 MG INH ×3 (12:51→22:29)
[2023-09-03] MEDS: XOPENEX 1.25 MG INHALANT SOLUTION INH ×4 (12:51→22:29)
--- NOTE | 2023-09-03 12:53 | CM ---
Addendum entered by Maria Esther Lou 09/04/23 11:00:
manager disaster recovery spoke with cardiology and pillowcase turner will await PT/OT evaluations to see if patient qualifies for skilled placement.
Original Note:
Chart reviewed including physical therapy notes, pillowcase turner will continue to follow patient progress, patient to return to home with daughter and [facility] with aides. manager disaster recovery reached out to [facility] and re faxed clinical.
Plan; Home with [facility] care
[phone]
--- NOTE | 2023-09-03 13:45 | W.PN.HOSP.TC ---
Today's Communication/Plan
-
Continue with IV steroids and start trial of bronchodilators
Cardiology eval
Restart Cardizem drip
amio loading dose
Monitor heart rate
Rehab eval pending stabilization of heart rate
Assessment / Plan
Assessment / Plan
Gen-awake, alert, mild tachypnea, morbidly obese
HEENT-NC, AT, anicteric, clear oral mm
Neck-supple
CV-reg, no M, +S1/S2, irregularly irregular, tachycardic
Lungs-bilateral scattered rhonchi and wheezes
Abd-soft, NT, ND
Ext-no edema
Musculoskeletal-no cyanosis, clubbing
Skin-warm and dry
Neuro-grossly non-focal
Psych-calm, cooperative
Community-acquired pneumonia -chest x-ray with retrocardiac infiltrate. Febrile last night. WBC count normal. Continue antibiotics. . Oxygenation stable on room air. Encourage Acapella, incentive spirometer. Influenza negative, COVID-negative.
Reactive airway disease related to pneumonia vs. hx of second hand exposure. Pt spouse used to smokes. Trial of bronchodilator. If no improvement can consider pulm eval.
Rapid atrial fibrillation -likely triggered by acute illness with pneumonia. Restarted cardizem gtt (held overnight for hypotension) and continue with po cardizem. Also started on amiodarone loading dose 400 Milligram p.o. 3 times daily continue
with Eliquis. Monitor on telemetry. Remains with rapid ventricular response and will consult cardiology.
Recent hospitalization for sepsis and UTI -July 2023.
Chronic heart failure preserved EF -no signs of exacerbation.
Essential hypertension -stable.
Constipation -with recent lower GI bleed felt to be either hemorrhoidal or anal fissure. Continue bowel regimen.
Mild dementia, likely Alzheimer's type
Morbid obesity due to excess calories
PT/OT pending stabilization of HR
Full code
Discussed with patient daughter at bedside in details
Anticipated Discharge: > 48 hours
Subjective/Interval History
-
Date of Service: September 03, 2023
HR elevated to 138-140s
PT/OT cancelled
restarted cardizem gtt
daughter at bedside assisted with translation
Objective Data
-
Labs:
Laboratory Results
09/03/23
07:04
WBC 9.1
Hgb 11.1 L
Hct 33.3 L
Plt Count 203
Sodium 139
Potassium 4.5
Chloride 110 H
Carbon Dioxide 20 L
BUN 28 H
Creatinine 0.7
Glucose 149 H
Calcium 9.0
Vital Signs:
Vital Signs
Temp Pulse Resp BP Pulse Ox
98.1 F 110 18 152/84 95
09/03/23 11:22 09/03/23 12:56 09/03/23 12:56 09/03/23 11:22 09/03/23 12:56
I&O
09/02/23 09/03/23 09/04/23
06:59 06:59 06:59
Intake Total 240 / 240
Output Total 510 / 510 600 / 600
Balance -510 / -510 -360 / -360
Physical Exam
-
General: No Apparent Distress and Morbidly Obese
HEENT: Moist Mucous Membranes
Respiratory: Wheezes
Cardiac: S1/S2, Irregular Rhythm and Tachycardic
GI: Soft, Nontender, Nondistended and Normal Bowel Sounds
Neuro: Awake, AO x 3 and No Motor Deficits
Psych: Calm; Negative Confused (per daughter) or Agitated
Data Reviewed
-
Total Time Spent with Patient (in minutes): 55
[2023-09-03] MEDS: LASIX 40 MG IV (13:52)
[2023-09-03] MEDS: PACERONE 400 MG PO ×2 (15:26→22:20)
[2023-09-03] MEDS: ZITHROMAX 500 MG PO (15:26)
[2023-09-03] MEDS: ROCEPHIN 1000 MG IV (15:28)
[2023-09-03] MEDS: STERILE WATER FOR INJECTION 10 ML IV (15:28)
[2023-09-03 15:32] LABS: NT-proBNP 2150 pg/ml
[2023-09-03 15:42] VITALS: BP 127/70
[2023-09-03 15:43] LABS: TSH Reflex To Free T4 0.53 uIU/ml (0.47-4.68)
[2023-09-03 19:43] VITALS: BP 140/87
[2023-09-03] MEDS: ATROVENT NEBULES INH (19:55)
[2023-09-03 23:30] VITALS: BP 144/109
[2023-09-04] VITALS (8 sets, daily range): BP systolic 116–134; BP diastolic 71–93; PULSE 68–113; O2SAT 93; BMI 42.6
[2023-09-04] MEDS: DECADRON 4 MG IV ×2 (04:09→11:09)
[2023-09-04] MEDS: ATROVENT NEBULES 0.5 MG INH ×3 (07:11→18:05)
[2023-09-04] MEDS: XOPENEX 1.25 MG INHALANT SOLUTION INH ×3 (07:12→14:04)
[2023-09-04] MEDS: PACERONE 400 MG PO ×3 (07:48→21:49)
[2023-09-04] MEDS: LASIX 20 MG PO (07:48)
[2023-09-04] MEDS: CARDIZEM CD 120 MG PO (07:48)
[2023-09-04] MEDS: ELIQUIS 5 MG PO ×2 (07:48→21:45)
[2023-09-04] MEDS: MIRALAX 17 GRAMS PO (07:48)
[2023-09-04] MEDS: MUCINEX 600 MG PO ×2 (07:48→21:45)
--- NOTE | 2023-09-04 10:13 | W.PN.CARDCBS ---
Addendum entered and electronically signed by Cruz Dejesus MD 09/04/23 12:55:
I saw and examined the patient.
The [employer] or PA's note was reviewed and I agree with the note.
Comment: General: Well developed, well nourished in NAD.
Neck: Supple, no JVD, HJR, carotids +2 B/L, no bruits bilaterally.
Heart: Non displaced PMI, RRR, no murmurs, No S3, S4, no rubs.
Lungs: Scattered rhonchi
Extremities: No clubbing, cyanosis or edema bilaterally.
Neuro: Grossly nonfocal, awake, alert and oriented x3.
She appears much improved. Will continue IV Lasix to treat acute diastolic CHF. Heart rate control is much better with the addition of amiodarone. Will continue amiodarone loading. will try to discontinue IV Cardizem. Could consider
cardioversion prior to discharge but daughter is reluctant for pt to get general anesthesia and rate control might be appropriate.
Original Note:
Today's Communication / Plan
-
follow QTc by EKG
attempt to wean off IV cardizem. increase po cardizem. continue amiodarone load
IV lasix
continue eliquis
PT/OT evals. may need rehab upon DC
Impression / Plan
-
Family Physician: Ness Mckenzie
Television Producer: Dr. Wilde
Impression:
Presented 09/01/2023 with shortness of breath, cough, palpitations and elevated heart rate
Pneumonia
Atrial fibrillation with RVR
Acute on chronic heart failure with preserved ejection fraction
Paroxysmal AFib
Chronic anticoagulation on Eliquis
Possible remote prior [place] (10 yrs prior in [facility])
HTN
HLD
Heart failure with preserved ejection fraction
History of UTI/E. coli bacteremia
Dementia
Hemorrhoids
Echo 05/15/23: LVEF 55%, mod LVH, no sig valve dz, PASP 32 mmHg
Echo 08/03/2022: EF 55 to 60%, possible mild hypokinesis of the basal to mid anteroseptal guadalupe but poor endocardial definition, stage II diastolic dysfunction, thickened mitral valve leaflets with dense MAC, trace MR, mild TR, estimated PAP 45 mmHg
Plan:
-Presented 09/01/2023 with shortness of breath, cough, palpitations and elevated heart rate
-Upon discussion with patient's daughter at bedside today, she states she has been in A-fib with RVR for approximately 2 weeks and has gained 10 pounds within that timeframe.
-Was given 40 mg IV Lasix yesterday in addition to 20 mg p.o. daily. Will stop oral Lasix for now and place on lasix 40 mg IV daily. Patient's daughter reports dry weight of 170 pounds
-Remains in A-fib, however rates much better controlled. Will attempt to wean IV Cardizem off today. Increase p.o. Cardizem to 180 mg twice daily as BPs stable. Continue amiodarone load. check EKG to assess QTc
-could consider for CV prior to DC however more likely allow to recover and consider for OP CV if remains in afib.
-continue eliquis. no missed doses
-TSH low normal at 0.53.
-Concern for pneumonia. Patient getting antibiotics, steroids and nebulizer treatment per primary service
-check hgbA1c, sugars elevated since admission. of note, is on steroids
-daughter concerned about patient returning home immediately post hospitalization. PT/OT evals. may need rehab. CM following
-d/w nursing
HPI 09/03/2023:
87-year-old woman past medical history paroxysmal atrial fibrillation, CAD with remote [place], hypertension, hyperlipidemia, UTI/bacteremia who presented to emergency department 09/01/2023 with complaints of palpitations, elevated heart rate, shortness
of breath and cough. Cardizem recently increased as outpatient due to concerns of elevated heart rate noted by VN. Patient was noted to have concern for pneumonia on chest x-ray and started on broad-spectrum antibiotics, along with nebulizer and
steroids for wheezing. COVID/Flu-negative. EKG showed atrial fibrillation with rapid ventricular response. Patient placed on IV Cardizem drip. However patient did develop hypotension and drip was discontinued on morning of 09/03/2023.
This history is obtained through her daughter who is at bedside and chart review
Progress Note - Television Producer
Subjective
Date of Service: September 04, 2023
Patient without complaints this morning per daughter at bedside
Objective
Labs:
09/03/23 07:04
09/03/23 07:04
Labs
Hgb 11.1 g/dL (12.0-16.0) L 09/03/23 07:04
Hct 33.3 % (37.0-47.0) L 09/03/23 07:04
Plt Count 203 10^3/uL (130-400) 09/03/23 07:04
Sodium 139 mmol/L (135-145) 09/03/23 07:04
Potassium 4.5 mmol/L (3.5-5.1) 09/03/23 07:04
BUN 28 mg/dl (7-17) H 09/03/23 07:04
Creatinine 0.7 mg/dL (0.6-1.0) 09/03/23 07:04
Glucose 149 mg/dl (70-99) H 09/03/23 07:04
Vital Signs and I&O:
Vital Signs
Temp Pulse Resp BP Pulse Ox
97.6 F 60 20 126/80 94
09/04/23 07:32 09/04/23 07:32 09/04/23 07:32 09/04/23 07:32 09/04/23 07:32
Vital Signs
Temp Pulse Resp BP Pulse Ox
97.6 F 60 20 126/80 94
09/04/23 07:32 09/04/23 07:32 09/04/23 07:32 09/04/23 07:32 07/16/24 07:32
Intake & Output
09/02/23 09/03/23 09/04/23 09/05/23
07:59 07:59 07:59 07:59
Intake Total 240 / 240 1800 / 1800
Output Total 510 / 510 600 / 600 650 / 650
Balance -510 / -510 -360 / -360 1150 / 1150
Physical Exam
Physical Exam
GEN: No distress, awake, alert. oriented to self. obese
HEENT: supple, anicteric, mmm, eomi
LUNGS: Exp wheezes B/L
CV: Irreg, S1/S2, no murmur
ABD: soft, BS+, NT/ND
EXT: No cyanosis, clubbing. trace edema of B/L LE
NEURO: Gross non-focal
SKIN: Warm, pink, dry. No rash
--- NOTE | 2023-09-04 10:32 | W.PN.HOSP.TC ---
Today's Communication/Plan
-
Speech eval
IV lasix
IV steroids
Pulm eval
monitor HR
PT/OT
Assessment / Plan
Assessment / Plan
Gen-awake, alert, mild tachypnea, morbidly obese
HEENT-NC, AT, anicteric, clear oral mm
Neck-supple
CV-reg, no M, +S1/S2, irregularly irregular, tachycardic
Lungs-bilateral scattered rhonchi and wheezes-more in the upper airway
Abd-soft, NT, mild distention
Ext-trace edema
Musculoskeletal-no cyanosis, clubbing
Skin-warm and dry
Neuro-grossly non-focal
Psych-calm, cooperative
Community-acquired pneumonia -chest x-ray with retrocardiac infiltrate. Febrile last night. WBC count normal. Continue antibiotics. . Oxygenation stable on room air. Encourage Acapella, incentive spirometer. Influenza negative, COVID-negative.
Reactive airway disease related to pneumonia vs. hx of second hand exposure. Pt spouse used to smokes. Trial of bronchodilator. Remains on IV steroids. Speech eval. Pulm eval.
Rapid atrial fibrillation -likely triggered by acute illness with pneumonia. Remains of cardizem gtt and continue with po cardizem. Also started on amiodarone loading dose 400 Milligram p.o. 3 times daily continue with Eliquis. Monitor on
telemetry. Hr improved.
Acute on chronic diastolic heart failure exacerbation. proBNP elevated. Started on IV 40 Lasix per cardiology. Daughter states patient did gain approximately 10 pounds at home.
Recent hospitalization for sepsis and UTI -July 2023.
Chronic heart failure preserved EF -no signs of exacerbation.
Essential hypertension -stable.
Constipation -with recent lower GI bleed felt to be either hemorrhoidal or anal fissure. Continue bowel regimen.
Mild dementia, likely Alzheimer's type
Morbid obesity due to excess calories
PT/OT eval as Hr stable
Full code
Discussed with patient daughter at bedside in details
Anticipated Discharge: > 48 hours
Subjective/Interval History
-
Date of Service: September 04, 2023
HR improved
remains with wheezing
on room air
Daughter states patient did gain approximately 10 pounds at home.
Daughter at Bedside assisted with translation
Objective Data
-
Vital Signs:
Vital Signs
Temp Pulse Resp BP Pulse Ox
97.6 F 60 20 126/80 94
09/04/23 07:32 09/04/23 07:32 09/04/23 07:32 09/04/23 07:32 09/04/23 07:32
I&O
09/03/23 09/04/23 09/05/23
06:59 06:59 06:59
Intake Total 240 / 240 1800 / 1800
Output Total 600 / 600 650 / 650
Balance -360 / -360 1150 / 1150
Data Reviewed
-
Total Time Spent with Patient (in minutes): 55
--- NOTE | 2023-09-04 10:44 | CON.PUL ---
Consultation
Consultation Request
Date/Time Consultation Requested: 09/03
Date/Time Consultation Performed: 09/03
Reason for Consultation: COPD
Medical History
-
History of Present Illness:
History obtained from the chart and medical records and daughter at bedside.-Has court interpreter as patient speaks Czech. Patient is an 87-year-old female with history of atrial fibrillation on anticoagulation who presented from home with shortness
of breath and hypoxia. Upon arrival to [facility], temperature 99.3, pulse 129, breathing at 22, blood pressure 159/93, 93%. Patient was started on IV Cardizem, nebulized therapy and steroids. Chest exam per records suggest scattered
rhonchi or wheezes. Patient also was noted to have commune acquired pneumonia on chest x-ray, antibiotics continued. Cardiology was consulted, patient was started on amiodarone. We are asked to help from pulmonary standpoint.
Presently, patient denies shortness of breath, chest pain, cough. Denies history of hemoptysis. Patient has been living with daughter recently but daughter also is disabled, wheelchair-bound. Additional history obtained from second daughter at
bedside
.
PMH: Atrial fibrillation, history of heart failure, diastolic dysfunction, UTI/sepsis hospitalized July 2023, hypertension, dementia, morbid obesity
Past Medical History
Past Medical History: None (See above)
Past Surgical History: None (See above)
Social History
Tobacco: Non-smoker (Significant secondhand exposure)
Alcohol: None
Drug: None
Personal:
Living: With Family (Lives with daughter)
Employment: Retired (Pediatric nurse)
Family History
Family History: Other (Only child. 2 daughters without history of lung cancer, blood clots)
Allergies / Home Medications
Allergies
Allergy/AdvReac Type Severity Reaction Status Date / Time
No Known Allergies Allergy Verified 09/01/23 13:55
Home Medications
�Medication �Instructions �Recorded �Confirmed �Last Taken �Type
apixaban 5 mg tablet (Eliquis) 5 mg PO BID #0 tabs 02/03/23 09/01/23 09/01/23 08:00 Rx
furosemide 20 mg tablet 20 mg PO DAILY Fluid 08/04/23 09/01/23 09/01/23 History
Retention/Swelling
glycerin-carbomer homopoly type 5 ml mucous membrane DAILY PRN 08/07/23 Unknown Rx
A-potassium hydroxide mucosal mouth irritation #240 mL
solution (MuGard mucosal solution)
amoxicillin 875 mg-potassium 1 tab PO BID Infection 09/02/23 Unknown History
clavulanate 125 mg tablet
diltiazem HCl 120 mg capsule,24 120 mg PO DAILY Heart 09/02/23 Unknown History
hr,extended release Disease/Condition
hydrocortisone acetate 25 mg 25 mg CO DAILY INFLAMMATION 09/02/23 Unknown History
rectal suppository
polyethylene glycol 3350 17 gram 17 g PO DAILY Gastrointestinal 09/02/23 Unknown History
oral powder packet (HealthyLax) Issue
Review of Systems
-
All other systems: Negative unless noted
Vitals / Labs / Diagnostic Testing
Vital Signs
Temp Pulse Resp BP Pulse Ox
97.6 F 60 20 126/80 94
09/04/23 07:32 09/04/23 07:32 09/04/23 07:32 09/04/23 07:32 09/04/23 07:32
Lab Data
09/03/23 07:04
09/03/23 07:04
Microbiology
09/01/23 14:41 Nasal Swab Influenza Types A & B (TATIANA) - Final
Negative for Influenza A & B, NAAT
Negative results must be combined with clinical observations
and patient history.
Nucleic Acid Amplification test (NAAT)performed on the
[employer] platform.
Diagnostic Testing:
Physical Exam
-
HEENT: Normocephalic, Anicteric and Other (Large neck, narrow posterior oropharynx)
Cardiovascular: S1/S2, Regular Rhythm, Murmur (n), Rub (n), Peripheral Edema (tr) and Calf Tenderness (n)
Respiratory: Wheeze (few), Rales (Bibasilar), Rhonchi (n) and Non-Labored Respirations
GI: Soft, Non Distended and Non Tender
Neurology: Awake, Alert and No Motor Deficits (Able to sit up without assistance)
Skin: Good Color and Other (No clubbing, no cyanosis)
General: Comfortable (Appears comfortable, smiling)
Assessment
-
87-year-old female with history of atrial fibrillation with rapid ventricular response, recurrent heart failure in the past, presents with increased shortness of breath, wheezing. Was treated with antibiotics for possible pneumonia and rate control
medications, including amiodarone. We are asked to comment on her pulmonary process 09/03
Acute hypoxic respiratory insufficiency
Requiring supplemental oxygen
Acute heart failure, preserved EF
Wheezing, crackles on exam
Atrial fibrillation with rapid ventricular response
Amiodarone has been started 09/02/2023
Posterior basal infiltrate on chest x-ray
New compared to 08/04/2023
History of recurrent bronchitis with wheezing
Multiple hospital stays over the past few years ([facility])
Symptoms worsen since 2017
Conditions present prior to admission
Hypertension/hyperlipidemia
Suspected sleep disordered breathing
Mild dementia
Plan/recommendations
At this time, patient appears to have responded to heart failure treatment
Minimal wheeze on exam at this time, bibasilar crackles noted
Daughter describes multiple episodes of similar presentation with wheezing, shortness of breath
Seems to respond to diuresis in the past and rate control
Patient is now on amiodarone therapy
Lifelong non-smoker
Unclear whether there may be underlying airways disease. CT chest 02/02/2023 with mild mosaic pattern but may be from heart failure
Moving forward
Continue with management per cardiology
Diuresis, rate control
Not convinced that patient has significant airway inflammation
Would minimize beta agonist therapy given recurrent tachycardia in the past
For now we will continue with ipratropium 3 times daily
Posterior basilar infiltrate noted on chest x-ray
Continue with 7-day course of antibiotics
Consider transition to oral
Strongly suspected sleep disordered breathing given exam and symptom complex and comorbidities
Will check nocturnal oximetry tonight, with plans to discharge on nocturnal oxygen if qualifies
Not sure whether patient will be able to follow-up as outpatient but this was briefly reviewed with the daughter
Will leave our information in the chart for pulmonary follow-up as indicated
Will follow
[2023-09-04] MEDS: LASIX 40 MG IV (11:09)
[2023-09-04 11:40] LABS: Glycohemoglobin (HgbA1c) 5.6 % (4.0-5.6)
--- NOTE | 2023-09-04 12:38 | PTOTSP ---
Dysphagia Evaluation
Oral/pharyngeal swallow suspected to be WFL with thin liquids through solids during clinical bedside swallowing evaluation. Patient with acute on chronic risk factors for dysphagia (i.e., SOB with CHF, dementia) and acute on chronic pill dysphagia
(i.e., c/o stasis, pointed to base of neck, with large pills).
Recommend:
1. Regular, Thin Liquids
2. Medications - crushed in puree if medically cleared to do so
3. Strategies: supervision, upright to 90 degrees, slow rate with breaks for breathing while short of breath, upright for at least 30 minutes after PO intake
4. Oral care 3x daily
5. No further dysphagia therapy warranted. Please reconsult as appropriate. If concerned for component of silent aspiration consider video swallow study.
[2023-09-04] MEDS: ROCEPHIN 1000 MG IV (15:09)
[2023-09-04] MEDS: ZITHROMAX 500 MG PO (15:09)
[2023-09-04] MEDS: STERILE WATER FOR INJECTION 10 ML IV (15:10)
--- NOTE | 2023-09-04 15:57 | CM ---
manager architecture spoke with cardiology, and physical therapy and recommendation is for skilled placement, patient case manager spoke with patient's daughter and she is agreeable to skilled placement, options reviewed and she has selected [facility]. Referral sent.
Plan; Skilled placement.
[2023-09-04] MEDS: CARDIZEM CD 180 MG PO (21:45)
--- NOTE | 2023-09-05 03:17 | DOWNTIME ---
There was a [employer] Client [employer] [place] Downtime on 09/05/2023 from 0100 to 09/05/2023 at 0255. Downtime documentation of patient's care, including medication administrations, has been reconciled in the electronic record per guidelines. Refer to the
patient's paper chart under the miscellaneous tab to see printed paper medication records and downtime forms.
[2023-09-05 03:25] VITALS: BP 114/68
[2023-09-05] MEDS: XOPENEX 1.25 MG INHALANT SOLUTION INH ×2 (03:32→11:39)
[2023-09-05 05:05] VITALS: BMI 42.7
[2023-09-05 07:46] LABS: % Basophils 0.3 % (0-2); % Immature Granulocytes 1.3 % (0-0.5); % Lymphocytes 11.7 % (20.5-51.1); % Monocytes 4.9 % (1.7-9.3); % Neutrophils 81.8 % (42.2-75.2); Absolute Immature Granulocytes 0.1 10^3/uL (0-0.05); Absolute Lymphocytes 0.8 10^3/uL (1.2-3.4); Absolute Monocytes 0.4 10^3/uL (0.1-0.6); Absolute Neutrophils 5.8 10^3/uL (1.4-6.5); Hematocrit 30.7 % (37.0-47.0); Hemoglobin 10.2 g/dL (12.0-16.0); Mean Corp Hgb Conc. 33.2 g/dL (33.0-37.0); Mean Corpuscular Hgb 28.1 pg (27.0-31.0); Mean Corpuscular Volume 84.6 fL (81.0-99.0); Mean Platelet Volume 10.4 fL (7.4-10.4); Nucleated Red Blood Cells % 0.3 %; Platelet Count 228 10^3/uL (130-400); Red Blood Cell Count 3.63 10^6/uL (4.20-5.40); Red Cell Dist. Width 16.5 % (11.5-14.5); White Blood Cell Count 7.1 10^3/uL (4.8-10.8)
[2023-09-05] MEDS: ATROVENT NEBULES 0.5 MG INH ×3 (07:54→20:20)
[2023-09-05 07:58] LABS: Blood Urea Nitrogen 45 mg/dl (7-17); Calcium 8.8 mg/dl (8.4-10.2); Carbon Dioxide 24 mmol/L (22-30); Chloride 102 mmol/L (98-107); Estimated Creatinine Clearance 33 ml/min; Glucose 153 mg/dl (70-99); Magnesium 1.9 mg/dl (1.6-2.3); Potassium 4.5 mmol/L (3.5-5.1); Sodium 136 mmol/L (135-145); eGFR 55.21
[2023-09-05 08:08] VITALS: BP 129/82
[2023-09-05] MEDS: CARDIZEM CD 180 MG PO ×2 (09:55→20:04)
[2023-09-05] MEDS: MUCINEX 600 MG PO ×2 (09:55→20:07)
[2023-09-05] MEDS: PACERONE 400 MG PO ×3 (09:55→21:27)
[2023-09-05] MEDS: ELIQUIS 5 MG PO ×2 (09:55→20:07)
--- NOTE | 2023-09-05 09:55 | W.PN.CARDCBS ---
Addendum entered and electronically signed by Adi Wilde MD 09/05/23 12:27:
I saw and examined the patient.
The Software Computer Specialist's note was reviewed and I agree with the note.
Comment: Briefly, 87-year-old woman past medical history of heart failure with preserved ejection fraction and atrial fibrillation with rapid ventricular response who presented with shortness of breath and elevated heart rate which was progressive
over the last 2 weeks concerning for decompensated heart failure
She has undergone IV diuresis and is currently on room air but weight is still up from baseline
Continue IV Lasix, hopefully can transition to p.o. in the next 24 to 48 hours
History of paroxysmal atrial fibrillation which has been difficult to rate control at times
Amio added this admission
Continue calcium channel lennie
Would consider direct-current cardioversion prior to discharge, but will need to confirm patient has been reliably been taking her Eliquis
Original Note:
Today's Communication / Plan
-
continue IV lasix 40mg daily. weights via standing scale
follow BUN/Cr
continue amiodarone, po cardizem
consider for CV prior to DC vs as OP pending respiratory status
Impression / Plan
-
Family Physician: Ness Mckenzie
Solution Mixer: Dr. Wilde
Impression:
Presented 09/01/2023 with shortness of breath, cough, palpitations and elevated heart rate
Pneumonia
Atrial fibrillation with RVR
Acute on chronic heart failure with preserved ejection fraction
Paroxysmal AFib
Chronic anticoagulation on Eliquis
Possible remote prior [place] (10 yrs prior in [facility])
HTN
HLD
Heart failure with preserved ejection fraction
History of UTI/E. coli bacteremia
Dementia
Hemorrhoids
Echo 05/15/23: LVEF 55%, mod LVH, no sig valve dz, PASP 32 mmHg
Echo 08/03/2022: EF 55 to 60%, possible mild hypokinesis of the basal to mid anteroseptal guadalupe but poor endocardial definition, stage II diastolic dysfunction, thickened mitral valve leaflets with dense MAC, trace MR, mild TR, estimated PAP 45 mmHg
Plan:
-Presented 09/01/2023 with shortness of breath, cough, palpitations and elevated heart rate
-daughter states she has been in A-fib with RVR for approximately 2 weeks prior to admission and has gained 10 pounds within that timeframe.
-continue IV lasix 40mg daily. BUN doubled overnight however felt to be due to steroids (stopped 09/03). also with bump in Cr to 1.0. suspect weights inaccurate, d/w nursing, will weigh patient via standing scale
-appreciate pulm input. remains with wheezing on exam. Patient getting antibiotics, steroids and nebulizer treatment per primary service
-remains in afib with adequate HR control. continue po cardizem 180mg BID and amiodarone 400mg TID. QTc 487 by EKG 09/03
-could consider for CV prior to DC however respiratory status must improve first
-continue eliquis. no missed doses
-TSH low normal at 0.53.
-daughter concerned about patient returning home immediately post hospitalization. PT/OT evals. may need rehab. CM following
-d/w nursing, hospitalist
HPI 09/03/2023:
87-year-old woman past medical history paroxysmal atrial fibrillation, CAD with remote [place], hypertension, hyperlipidemia, UTI/bacteremia who presented to emergency department 09/01/2023 with complaints of palpitations, elevated heart rate, shortness
of breath and cough. Cardizem recently increased as outpatient due to concerns of elevated heart rate noted by VN. Patient was noted to have concern for pneumonia on chest x-ray and started on broad-spectrum antibiotics, along with nebulizer and
steroids for wheezing. COVID/Flu-negative. EKG showed atrial fibrillation with rapid ventricular response. Patient placed on IV Cardizem drip. However patient did develop hypotension and drip was discontinued on morning of 09/03/2023.
This history is obtained through her daughter who is at bedside and chart review
Progress Note - Solution Mixer
Subjective
Date of Service: September 05, 2023
daughter reports does not feel patient's breathing is improving. no CP.
Objective
Labs:
09/05/23 06:37
09/05/23 06:37
Labs
Hgb 10.2 g/dL (12.0-16.0) L 09/05/23 06:37
Hct 30.7 % (37.0-47.0) L 09/05/23 06:37
Plt Count 228 10^3/uL (130-400) 09/05/23 06:37
Sodium 136 mmol/L (135-145) 09/05/23 06:37
Potassium 4.5 mmol/L (3.5-5.1) 09/05/23 06:37
BUN 45 mg/dl (7-17) H 09/05/23 06:37
Creatinine 1.0 mg/dL (0.6-1.0) 09/05/23 06:37
Glucose 153 mg/dl (70-99) H 09/05/23 06:37
Vital Signs and I&O:
Vital Signs
Temp Pulse Resp BP Pulse Ox
97.6 F 104 20 129/82 95
09/05/23 08:08 09/05/23 08:08 09/05/23 08:08 09/05/23 08:08 09/05/23 08:08
Vital Signs
Temp Pulse Resp BP Pulse Ox
97.6 F 104 20 129/82 95
09/05/23 08:08 09/05/23 08:08 09/05/23 08:08 09/05/23 08:08 09/05/23 08:08
Intake & Output
09/03/23 09/04/23 09/05/23 09/06/23
07:59 07:59 07:59 07:59
Intake Total 240 / 240 1800 / 1800 1200 / 1200
Output Total 600 / 600 650 / 650 100 / 100
Balance -360 / -360 1150 / 1150 1100 / 1100
Physical Exam
Physical Exam
GEN: No distress, awake, alert. oriented to self. obese. sitting in chair
HEENT: supple, anicteric, mmm, eomi
LUNGS: Exp wheezes B/L
CV: Irreg, S1/S2, no murmur
ABD: soft, BS+, NT/ND
EXT: No cyanosis, clubbing. trace edema of B/L LE
NEURO: Gross non-focal
SKIN: Warm, pink, dry. No rash
[2023-09-05] MEDS: LASIX 40 MG IV (09:56)
[2023-09-05] MEDS: MIRALAX PO (09:58)
[2023-09-05 10:13] VITALS: BMI 42.1
[2023-09-05 11:00] VITALS: BP 147/71
[2023-09-05] MEDS: MUCOMYST 10% 4 ML INH (11:38)
--- NOTE | 2023-09-05 13:36 | W.PN.HOSP.TC ---
Today's Communication/Plan
-
Continue Lasix
Assessment / Plan
Assessment / Plan
Patient is 87 years old [place]ivian-speaking female who admitted with respiratory distress and has been treated for pneumonia/CHF/rapid A-fib.
Community-acquired pneumonia -chest x-ray with retrocardiac infiltrate. Febrile last night. WBC count normal. Continue antibiotics. . Oxygenation stable on room air. Encourage Acapella, incentive spirometer. Influenza negative, COVID-negative.
Reactive airway disease related to pneumonia vs. hx of second hand exposure. Pt spouse used to smokes. Trial of bronchodilator. Remains on IV steroids. Speech eval. Pulm eval.
09/04
Pulmonary discontinued steroid, but patient still with significant wheezing, will discuss with pulmonology to resume IV Solu-Medrol
Patient status post Mucomyst which helped with wheezing
Atrial fibrillation with RVR-likely triggered by acute illness with pneumonia. Remains of cardizem gtt and continue with po cardizem. Also started on amiodarone loading dose 400 Milligram p.o. 3 times daily continue with Eliquis. Monitor on
telemetry. Hr improved.
Acute on chronic diastolic heart failure exacerbation. proBNP elevated. Started on IV 40 Lasix per cardiology. Daughter states patient did gain approximately 10 pounds at home.
Recent hospitalization for sepsis and UTI -July 2023.
Chronic heart failure preserved EF -no signs of exacerbation.
Essential hypertension -stable.
Constipation -with recent lower GI bleed felt to be either hemorrhoidal or anal fissure. Continue bowel regimen.
Mild dementia, likely Alzheimer's type
Morbid obesity due to excess calories
CODE STATUS: Full code
DVT prophylaxis: Eliquis
Diet: Cardiac diet
Discussed with patient daughter at bedside in details
Anticipated Discharge: 24 - 48 hours
Subjective/Interval History
-
Date of Service: September 05, 2023
Patient seen and examined at bedside.
Patient is 87 years old [place]ivian-speaking female who admitted with respiratory distress and has been treated for pneumonia/CHF.
Daughter at bedside helped with translation.
Patient denies any chest pain.
Patient still with significant wheezing on physical exam.
Denies any abdominal pain, nausea, vomiting.
Objective Data
-
Labs:
Laboratory Results
09/05/23
06:37
WBC 7.1
Hgb 10.2 L
Hct 30.7 L
Plt Count 228
Sodium 136
Potassium 4.5
Chloride 102
Carbon Dioxide 24
BUN 45 H
Creatinine 1.0
Glucose 153 H
Calcium 8.8
Vital Signs:
Vital Signs
Temp Pulse Resp BP Pulse Ox
98.2 F 106 16 147/71 94
09/05/23 11:00 09/05/23 11:00 09/05/23 11:00 09/05/23 11:00 09/05/23 11:00
I&O
09/04/23 09/05/23 09/06/23
06:59 06:59 06:59
Intake Total 1800 / 1800 1200 / 1200
Output Total 650 / 650 100 / 100
Balance 1150 / 1150 1100 / 1100
Physical Exam
-
General: Well Developed and No Apparent Distress
HEENT: Normocephalic, Atraumatic and Moist Mucous Membranes
Respiratory: Wheezes, Rales, Rhonchi and Crackles
Cardiac: Regular Rhythm and S1/S2; Negative Murmur, Rub or Gallop
GI: Soft, Nontender, Nondistended and Normal Bowel Sounds; Negative Organomegaly
Rectal: Deferred by Provider
Musculoskeletal: No Clubbing, No Cyanosis and No Edema
Skin: Negative Rash
Neuro: Nonfocal/Grossly Intact
--- NOTE | 2023-09-05 14:11 | W.PN.PUL3 ---
Today's Communication / Plan
-
Continue with diuresis
Continue with antibiotics
Hold off on systemic steroids
Will add nebulized budesonide
Head of bed elevated
Ambulate and assess oxygen requirement
Follow blood sugars
Assessment
-
87-year-old female with history of atrial fibrillation with rapid ventricular response, recurrent heart failure in the past, presents with increased shortness of breath, wheezing. Was treated with antibiotics for possible pneumonia and rate control
medications, including amiodarone. We are asked to comment on her pulmonary process 09/03
Acute hypoxic respiratory insufficiency
Requiring supplemental oxygen
Acute heart failure, preserved EF
Wheezing, crackles on exam
Atrial fibrillation with rapid ventricular response
Amiodarone has been started 09/02/2023
Posterior basal infiltrate on chest x-ray
New compared to 08/04/2023
History of recurrent bronchitis with wheezing
Multiple hospital stays over the past few years ([facility])
Symptoms worsen since 2017
Conditions present prior to admission
Hypertension/hyperlipidemia
Suspected sleep disordered breathing
Mild dementia
Plan/recommendations
At this time, patient appears to be improved as the day goes on
Minimal wheeze on exam at this time, bibasilar crackles noted, poor air movement
Wheezes improved with pursed lip breathing
Seems to respond to diuresis in the past and rate control
Patient is now on amiodarone therapy
Lifelong non-smoker
Unclear whether there may be underlying airways disease. CT chest 02/02/2023 with mild mosaic pattern but may be from heart failure
Moving forward
Continue with management per cardiology
Diuresis, rate control
Not convinced that patient has significant airway inflammation
Would minimize beta agonist therapy given recurrent tachycardia in the past
For now we will continue with ipratropium 3 times daily
Continue to hold systemic steroids
Will add budesonide via nebulizer twice a day
Posterior basilar infiltrate noted on chest x-ray
Continue with 7-day course of antibiotics
Consider transition to oral
Strongly suspected sleep disordered breathing given exam and symptom complex and comorbidities
Nocturnal oximetry essentially normal
Not sure whether patient will be able to follow-up as outpatient but this was briefly reviewed with the daughter
Reviewed with daughter possibility of adding steroids but I would like to give this 1 more day and reassess
Daughter is in agreement
Will follow
Subjective Data
-
Date of Service:
Date of Service: September 05, 2023
Subjective:
Patient initially was thought to be doing worse earlier today. During my evaluation in the p.m., she is feeling better. Daughter at bedside. Daughter states she woke up more short of breath and wheezing but as the day went on, feels better.
Apparently has been urinating a lot according to daughter, unmeasured output noted
Objective Data
Data Reviewed
Vital Signs / I&O / Oxygen:
Vital Signs
Temp Pulse Resp BP Pulse Ox
98.2 F 106 16 147/71 94
09/05/23 11:00 09/05/23 11:00 09/05/23 11:00 09/05/23 11:00 09/05/23 11:00
Intake and Output
09/04/23 09/05/23 09/06/23
06:59 06:59 06:59
Intake Total 1800 / 1800 1200 / 1200
Output Total 650 / 650 100 / 100
Balance 1150 / 1150 1100 / 1100
SaO2 94
Nasal Cannula flow liters per 94
minute
Physical Exam
General: Comfortable (On room air)
HEENT: Normocephalic, Anicteric and Moist Mucous Membranes
Cardiovascular: S1-S2, Regular Rhythm, Murmur (n), Rub (n) and Peripheral Edema (Trace)
Respiratory: Wheeze (Mild and expiratory, upper airway), Crackles (Few scattered), Rhonchi (n), Non-Labored Respirations and Stridor (n)
GI: Soft, Non Distended (Obese) and Non Tender
Neurology: Awake, Alert and No Motor Deficits (Able to sit up with minimal assistance)
Skin: Good Color, Cyanosis (n), Jaundice (n) and Rash (n)
Labs/Micro/Reports
Lab Data
09/05/23 06:37
09/05/23 06:37
[2023-09-05 15:00] VITALS: BP 116/77
--- NOTE | 2023-09-05 15:05 | CM ---
manager real estate spoke with Miranda in admissions at [facility], [address] [place] [address], [place] [address] and they have accepted patient. manager real estate will need to follow with patient tomorrow for a possible bed on
Sunday for patient, bottle caser will need Auth from [facility]. Per Miranda her office will obtain Auth .
Plan; Skilled placement at [facility] when stable.
[2023-09-05] MEDS: ZITHROMAX 500 MG PO (15:13)
[2023-09-05] MEDS: STERILE WATER FOR INJECTION 10 ML IV (15:13)
[2023-09-05] MEDS: ROCEPHIN 1000 MG IV (15:13)
[2023-09-05 19:40] VITALS: BP 106/71
[2023-09-05 23:18] VITALS: BP 125/75
[2023-09-06] VITALS (7 sets, daily range): BP systolic 109–145; BP diastolic 65–85; PULSE 88; BMI 41.3
[2023-09-06 07:58] LABS: Blood Urea Nitrogen 41 mg/dl (7-17); Calcium 8.6 mg/dl (8.4-10.2); Carbon Dioxide 26 mmol/L (22-30); Chloride 103 mmol/L (98-107); Estimated Creatinine Clearance 41 ml/min; Glucose 112 mg/dl (70-99); Potassium 4.3 mmol/L (3.5-5.1); Sodium 137 mmol/L (135-145); eGFR > 60.00
[2023-09-06] MEDS: ATROVENT NEBULES 0.5 MG INH ×3 (08:01→20:05)
[2023-09-06] MEDS: PULMICORT 0.5 MG INH ×2 (08:01→20:05)
[2023-09-06] MEDS: MUCINEX 600 MG PO ×2 (08:43→19:46)
[2023-09-06] MEDS: ELIQUIS 5 MG PO ×2 (08:43→19:47)
[2023-09-06] MEDS: CARDIZEM CD 180 MG PO (08:43)
[2023-09-06] MEDS: PACERONE 400 MG PO ×3 (08:43→21:19)
[2023-09-06] MEDS: MIRALAX 17 GRAMS PO (08:43)
--- NOTE | 2023-09-06 08:53 | W.PN.CARDCBS ---
Addendum entered and electronically signed by Paco Davila MD 09/06/23 13:19:
I saw and examined the patient.
The Environmental Services Associate's note was reviewed and I agree with the note.
Comment:
GEN: No distress, awake, Ox3
HEENT: supple, anicteric, mmm
LUNGS: CTA, no wheezes/rales
CV: Irreg, S1/S2, 1/6 syst LSB, no gallop
ABD: soft, BS+, NT/ND
EXT: No edema
NEURO: Gross non-focal
SKIN: No rash
Plan:
Ventricular rates remain mildly elevated. I had a lengthy discussion with her and her daughter and they does not desire cardioversion right now. They would like a trial of rate control and see how she does.
Increase Cardizem to 240 mg p.o. twice daily. Continue amiodarone 400 mg p.o. 3 times daily. Will need decreased dose upon discharge.
Would start Lasix 40 mg p.o. daily in AM. Continue Eliquis.
We will arrange follow-up and if she remains in A-fib at follow-up we would then consider cardioversion. She has been compliant with her Eliquis.
Original Note:
Today's Communication / Plan
-
IV lasix on hold, consider transition to PO lasix 40mg daily in AM
Continue Eliquis
Continue amiodarone 400mg TID while admitted.
Continue Cardizem CD 180mg BID.
Consideration for CV while inpatient versus as OP
Impression / Plan
-
Family Physician: Ness Mckenzie
Rehab Consultant: Dr. Wilde
Impression:
Presented 09/01/2023 with shortness of breath, cough, palpitations and elevated heart rate
Pneumonia
Acute on chronic HFpEF
Paroxysmal AFib w/ RVR
Chronic anticoagulation on Eliquis
Possible remote prior [place] (10 yrs prior in [facility])
HTN
HLD
History of UTI/E. coli bacteremia
Dementia
Hemorrhoids
Echo 05/15/23: LVEF 55%, mod LVH, no sig valve dz, PASP 32 mmHg
Echo 08/03/2022: EF 55 to 60%, possible mild hypokinesis of the basal to mid anteroseptal guadalupe but poor endocardial definition, stage II diastolic dysfunction, thickened mitral valve leaflets with dense MAC, trace MR, mild TR, estimated PAP 45 mmHg
Plan:
-Presented with SOB, cough, palpitations, and rapid afib.
-Afib started approximately 2 weeks prior to admission. During that time, patient gained ~10 lbs.
-Diuresing this admission w/ IV lasix 40mg daily. Weight down to 171 lbs 09/05 which is near dry weight.
-Creat stable at 0.8, however BUN jumped to 45 09/04 and lasix held.
-Breathing appears stable, feeling well. Would transition to PO lasix 40mg daily in AM.
-Remains in atrial fibrillation. HR 90s to 110s. On amiodarone 400mg TID and Cardizem CD 180mg BID. QTc 487 by EKG 09/03
-Discussed consideration for CV prior to discharge versus as OP. On Eliquis 5 mg BID. No missed doses as OP.
-Still w/ active wheezing. Pulm following. Continue abx, steroids, and nebs per pulm.
-TSH low normal at 0.53.
-Follow up appt arranged.
HPI 09/03/2023:
87-year-old woman past medical history paroxysmal atrial fibrillation, CAD with remote [place], hypertension, hyperlipidemia, UTI/bacteremia who presented to emergency department 09/01/2023 with complaints of palpitations, elevated heart rate, shortness
of breath and cough. Cardizem recently increased as outpatient due to concerns of elevated heart rate noted by VN. Patient was noted to have concern for pneumonia on chest x-ray and started on broad-spectrum antibiotics, along with nebulizer and
steroids for wheezing. COVID/Flu-negative. EKG showed atrial fibrillation with rapid ventricular response. Patient placed on IV Cardizem drip. However patient did develop hypotension and drip was discontinued on morning of 09/03/2023.
This history is obtained through her daughter who is at bedside and chart review
Progress Note - Rehab Consultant
Subjective
Date of Service: September 06, 2023
Feeling better. Breathing improving, weight coming down.
Objective
Labs:
09/05/23 06:37
09/06/23 07:14
Labs
Hgb 10.2 g/dL (12.0-16.0) L 09/05/23 06:37
Hct 30.7 % (37.0-47.0) L 09/05/23 06:37
Plt Count 228 10^3/uL (130-400) 09/05/23 06:37
Sodium 137 mmol/L (135-145) 09/06/23 07:14
Potassium 4.3 mmol/L (3.5-5.1) 09/06/23 07:14
BUN 41 mg/dl (7-17) H 09/06/23 07:14
Creatinine 0.8 mg/dL (0.6-1.0) 09/06/23 07:14
Glucose 112 mg/dl (70-99) H 09/06/23 07:14
Vital Signs and I&O:
Vital Signs
Temp Pulse Resp BP Pulse Ox
97.7 F 101 19 130/85 94
09/06/23 07:00 09/06/23 08:05 09/06/23 08:05 09/06/23 07:00 09/06/23 08:05
Vital Signs
Temp Pulse Resp BP Pulse Ox
97.7 F 101 19 130/85 94
09/06/23 07:00 09/06/23 08:05 09/06/23 08:05 09/06/23 07:00 09/06/23 08:05
Intake & Output
09/04/23 09/05/23 09/06/23 09/07/23
06:59 06:59 06:59 06:59
Intake Total 1800 / 1800 1200 / 1200 1380 / 1380 480 / 480
Output Total 650 / 650 100 / 100 175 / 175
Balance 1150 / 1150 1100 / 1100 1205 / 1205 480 / 480
Physical Exam
Physical Exam
GEN: No distress, awake, alert. oriented to self. obese. sitting in chair
HEENT: supple, anicteric, mmm, eomi
LUNGS: Exp wheezes B/L
CV: Irreg, S1/S2, no murmur
EXT: No cyanosis, clubbing, or edema.
NEURO: Gross non-focal
SKIN: Warm, pink, dry. No rash
--- NOTE | 2023-09-06 09:19 | W.PN.PUL.V3 ---
Today's Communication / Plan
-
Wean oxygen
Diuresis as tolerated
Hold off on steroids
Ipratropium bromide and budesonide nebulizers continue
If continues to wheeze would consider short course of steroids
Consider outpatient pulmonary/sleep disorders follow-up
Assessment
-
87-year-old female with history of atrial fibrillation with rapid ventricular response, recurrent heart failure in the past, presents with increased shortness of breath, wheezing. Was treated with antibiotics for possible pneumonia and rate control
medications, including amiodarone. We are asked to comment on her pulmonary process 09/03
Acute hypoxic respiratory insufficiency
Requiring supplemental oxygen
Acute heart failure, preserved EF
Wheezing, crackles on exam
Atrial fibrillation with rapid ventricular response
Amiodarone has been started 09/02/2023
Posterior basal infiltrate on chest x-ray
New compared to 08/04/2023
History of recurrent bronchitis with wheezing
Multiple hospital stays over the past few years ([facility])
Symptoms worsen since 2017
Conditions present prior to admission
Hypertension/hyperlipidemia
Suspected sleep disordered breathing
Mild dementia
Plan/recommendations
Respiratory status relatively stable-still has significant wheezing
Monitor oxygen
Wean supple nebulizers-ipratropium bromide-avoiding beta agonist with atrial fibrillation and previous rapid rate
Budesonide continues
Continue to hold on steroids-if continues to have wheezing after appropriate diuresis would consider short course of steroids-reviewed with daughter-she is in agreement
Chest x-ray with basilar atelectasis
Continue antibiotics-finite course
Diuresis as tolerated
Monitor renal function, electrolytes, intake/output, lower extremity edema and weight
Replace electrolytes as needed
Cardiology following-correspondence reviewed-Lasix on hold, transition to oral Lasix in the morning and continue Eliquis in addition to amiodarone and Cardizem chest
Strongly suspected sleep disordered breathing given exam and symptom complex and comorbidities
Nocturnal oximetry essentially normal
Not sure whether patient will be able to follow-up as outpatient but this was briefly reviewed with the daughter
DVT prophylaxis-on Eliquis
Nutrition
Early mobilization
Reviewed with nursing
Reviewed with daughter at the bedside
Consideration towards outpatient pulmonary follow-up/sleep disorders follow-up
Subjective Data
-
Date of Service:
Date of Service: September 06, 2023
Chief Complaint: Pulmonary Follow Up and Dyspnea Follow Up
Subjective:
Still has wheezing, some shortness of breath, daughter was at the bedside for translation, no chest pain, productive cough, or abdominal pain
Review of Systems
General: Other (Per HPI)
Objective Data
Data Reviewed
Vital Signs / I&O:
Vital Signs
Temp Pulse Resp BP Pulse Ox
97.7 F 101 19 130/85 94
09/06/23 07:00 09/06/23 08:05 09/06/23 08:05 09/06/23 07:00 09/06/23 08:05
Intake and Output
09/05/23 09/06/23 09/07/23
06:59 06:59 06:59
Intake Total 1200 / 1200 1380 / 1380 480 / 480
Output Total 100 / 100 175 / 175
Balance 1100 / 1100 1205 / 1205 480 / 480
SaO2: 94
Nasal Cannula flow liters per minute: 94
Physical Exam
General: Respiratory Distress (n) and Comfortable (On room air)
HEENT: Normocephalic, Anicteric and Moist Mucous Membranes
Cardiovascular: Regular Rhythm, Murmur (n), Rub (n) and Peripheral Edema (Trace)
Respiratory: Wheeze (Mild and expiratory, upper airway), Crackles (Few scattered), Rhonchi (n), Non-Labored Respirations and Stridor (n)
GI: Soft, Non Distended (Obese) and Non Tender
Neurology: Awake, Alert and No Motor Deficits (Able to sit up with minimal assistance)
Skin: Warm, Good Color, Cyanosis (n), Jaundice (n) and Rash (n)
Labs/Micro/Reports
Lab Data
09/05/23 06:37
09/06/23 07:14
--- NOTE | 2023-09-06 12:19 | CM ---
manager switch reviewed patient's chart and plan is for patient to go to a skilled facility, catalytic case operator reviewed patient's updated physician therapy notes and the recommendation is still for skilled placement. Patient has been accepted at [facility]. Miranda in admissions cell [phone] to obtain auth, updated PT/OT notes faxed over to her today, .
[facility],
[address] [place], [place] [address] [place],
[place] [address]
--- NOTE | 2023-09-06 13:44 | W.PN.HOSP.TC ---
Today's Communication/Plan
-
Increase Cardizem
Assessment / Plan
Assessment / Plan
Patient is 87 years old Tajik-speaking female who admitted with respiratory distress and has been treated for pneumonia/CHF/rapid A-fib.
Community-acquired pneumonia -chest x-ray with retrocardiac infiltrate. Febrile last night. WBC count normal. Continue antibiotics. . Oxygenation stable on room air. Encourage Acapella, incentive spirometer. Influenza negative, COVID-negative.
Reactive airway disease related to pneumonia vs. hx of second hand exposure. Pt spouse used to smokes. Trial of bronchodilator. Remains on IV steroids. Speech eval. Pulm eval.
09/04
Pulmonary discontinued steroid, but patient still with significant wheezing, will discuss with pulmonology to resume IV Solu-Medrol
Patient status post Mucomyst which helped with wheezing
09/05
Completed antibiotic
Atrial fibrillation with RVR-likely triggered by acute illness with pneumonia. Remains of cardizem gtt and continue with po cardizem. Also started on amiodarone loading dose 400 Milligram p.o. 3 times daily continue with Eliquis. Monitor on
telemetry. Hr improved.
09/05
Currently recommending to increase Cardizem, continue methadone
Discussed with family guarding cardioversion, family hesitant, continue medical management.
Acute on chronic diastolic heart failure exacerbation. proBNP elevated. Started on IV 40 Lasix per cardiology. Daughter states patient did gain approximately 10 pounds at home.
09/05
Overall improving
Switch Lasix to oral
Recent hospitalization for sepsis and UTI -July 2023.
Chronic heart failure preserved EF -no signs of exacerbation.
Essential hypertension -stable.
Constipation -with recent lower GI bleed felt to be either hemorrhoidal or anal fissure. Continue bowel regimen.
Mild dementia, likely Alzheimer's type
Morbid obesity due to excess calories
CODE STATUS: Full code
DVT prophylaxis: Eliquis
Diet: Cardiac diet
Discussed with patient daughter at bedside in details
Anticipated Discharge: Within 24 hours
Subjective/Interval History
-
Date of Service: September 06, 2023
Patient seen and examined at bedside, daughter at bedside.
Patient denies any chest pain, shortness of breath improved, wheezing improved, no abdominal pain, no nausea, no vomiting, no diarrhea or constipation.
Objective Data
-
Labs:
Laboratory Results
09/06/23
07:14
Sodium 137
Potassium 4.3
Chloride 103
Carbon Dioxide 26
BUN 41 H
Creatinine 0.8
Glucose 112 H
Calcium 8.6
Vital Signs:
Vital Signs
Temp Pulse Resp BP Pulse Ox
98.0 F 97 20 125/79 94
09/06/23 11:00 09/06/23 11:00 09/06/23 11:00 09/06/23 11:00 09/06/23 11:00
I&O
09/05/23 09/06/23 09/07/23
06:59 06:59 06:59
Intake Total 1200 / 1200 1380 / 1380 480 / 480
Output Total 100 / 100 175 / 175
Balance 1100 / 1100 1205 / 1205 480 / 480
Physical Exam
-
General: Well Developed and No Apparent Distress
HEENT: Normocephalic, Atraumatic and Moist Mucous Membranes
Respiratory: Wheezes (Improved), Rales, Rhonchi and Crackles
Cardiac: Regular Rhythm and S1/S2; Negative Murmur, Rub or Gallop
GI: Soft, Nontender, Nondistended and Normal Bowel Sounds; Negative Organomegaly
Rectal: Deferred by Provider
Musculoskeletal: No Clubbing, No Cyanosis and No Edema
Skin: Negative Rash
Neuro: Nonfocal/Grossly Intact
[2023-09-06] MEDS: ROCEPHIN 1000 MG IV (15:46)
[2023-09-06] MEDS: ZITHROMAX 500 MG PO (15:46)
[2023-09-06] MEDS: STERILE WATER FOR INJECTION 10 ML IV (15:46)
[2023-09-06] MEDS: CARDIZEM CD 240 MG PO (19:47)
[2023-09-07] VITALS (7 sets, daily range): BP systolic 128–180; BP diastolic 71–101; PULSE 95; O2SAT 94; BMI 41.8
[2023-09-07] MEDS: ATROVENT NEBULES 0.5 MG INH ×3 (07:44→20:25)
[2023-09-07] MEDS: PULMICORT 0.5 MG INH ×2 (07:44→20:25)
[2023-09-07] MEDS: XOPENEX 1.25 MG INHALANT SOLUTION INH (07:45)
--- NOTE | 2023-09-07 08:46 | W.PN.PUL.V3 ---
Today's Communication / Plan
-
wean O2
diuresis
afib rate control
try low dose steroids with ongoing wheezing
inc activity
check rest and exerc O2 sats
Assessment
-
87-year-old female with history of atrial fibrillation with rapid ventricular response, recurrent heart failure in the past, presents with increased shortness of breath, wheezing. Was treated with antibiotics for possible pneumonia and rate control
medications, including amiodarone. We are asked to comment on her pulmonary process 09/03
Acute hypoxic respiratory insufficiency
Requiring supplemental oxygen
Acute heart failure, preserved EF
Wheezing, crackles on exam
Atrial fibrillation with rapid ventricular response
Amiodarone has been started 09/02/2023
Posterior basal infiltrate on chest x-ray
New compared to 08/04/2023
History of recurrent bronchitis with wheezing
Multiple hospital stays over the past few years ([facility])
Symptoms worsen since 2017
Conditions present prior to admission
Hypertension/hyperlipidemia
Suspected sleep disordered breathing
Mild dementia
Plan/recommendations
Respiratory status relatively stable-still has significant wheezing
Monitor oxygen
Continue nebulizers-ipratropium bromide-avoiding beta agonist with atrial fibrillation and previous rapid rate
Budesonide continues
With ongoing wheezing will try low dose IV steroids - rev with daughter and she was okay with this
Note: Chest x-ray with basilar atelectasis
Continue antibiotics-finite course
Diuresis as tolerated
Monitor renal function, electrolytes, intake/output, lower extremity edema and weight
Replace electrolytes as needed
Cardiology following-correspondence reviewed-Lasix on hold, transition to oral Lasix in the morning and continue Eliquis in addition to amiodarone and Cardizem increased
Ideally cardioverted but patient and daughter would like to hold off and rate control - suspect if CV then inc atrial kick, forward flow and perhaps 'cardiac wheezing' might improve
Strongly suspected sleep disordered breathing given exam and symptom complex and comorbidities
Nocturnal oximetry essentially normal
Not sure whether patient will be able to follow-up as outpatient but this was briefly reviewed with the daughter
DVT prophylaxis-on Eliquis
Nutrition
Early mobilization
Reviewed with nursing
Reviewed with daughter at the bedside
Consideration towards outpatient pulmonary follow-up/sleep disorders follow-up
Subjective Data
-
Date of Service:
Date of Service: September 07, 2023
Chief Complaint: Pulmonary Follow Up and Dyspnea Follow Up
Subjective:
still wheezy, no cp, no abd pain, eating well, elevated heart rate
Review of Systems
General: Other (per HPI)
Objective Data
Data Reviewed
Vital Signs / I&O:
Vital Signs
Temp Pulse Resp BP Pulse Ox
97.6 F 105 20 134/101 93
09/07/23 07:46 09/07/23 07:48 09/07/23 07:48 09/07/23 07:46 09/07/23 07:48
Intake and Output
09/06/23 09/07/23 09/08/23
06:59 06:59 06:59
Intake Total 1380 / 1380 1740 / 1740
Output Total 175 / 175
Balance 1205 / 1205 1740 / 1740
SaO2: 93
Nasal Cannula flow liters per minute: 94
Physical Exam
General: Respiratory Distress (n) and Comfortable (On room air)
HEENT: Normocephalic, Anicteric and Moist Mucous Membranes
Cardiovascular: Regular Rhythm, Murmur (n), Rub (n) and Peripheral Edema (Trace)
Respiratory: Wheeze (Mild and expiratory, upper airway), Crackles (Few scattered), Rhonchi (n), Non-Labored Respirations and Stridor (n)
GI: Soft, Non Distended (Obese) and Non Tender
Neurology: Awake, Alert and No Motor Deficits (Able to sit up with minimal assistance)
Skin: Warm, Good Color, Cyanosis (n), Jaundice (n) and Rash (n)
Labs/Micro/Reports
Lab Data
09/05/23 06:37
[2023-09-07] MEDS: MUCINEX 600 MG PO ×2 (09:14→20:19)
[2023-09-07] MEDS: CARDIZEM CD 240 MG PO ×2 (09:14→20:19)
[2023-09-07] MEDS: LASIX 40 MG PO (09:14)
[2023-09-07] MEDS: PACERONE 400 MG PO (09:14)
[2023-09-07] MEDS: MIRALAX 17 GRAMS PO (09:14)
[2023-09-07] MEDS: ELIQUIS 5 MG PO ×2 (09:14→20:18)
--- NOTE | 2023-09-07 09:43 | W.PN.CARDCBS ---
Addendum entered and electronically signed by Cruz Dejesus MD 09/07/23 16:36:
I saw and examined the patient.
The FENCE INSTALLER or PA's note was reviewed and I agree with the note.
Comment: General: Well developed, well nourished in NAD.
Neck: Supple, no JVD, HJR, carotids +2 B/L, no bruits bilaterally.
Heart: Non displaced PMI, RRR, no murmurs, No S3, S4, no rubs.
Lungs: Rare scattered wheezes
Extremities: No clubbing, cyanosis or edema bilaterally.
Neuro: Grossly nonfocal, awake, alert and oriented x3.
Remains stable from cardiology viewpoint. Back on oral Lasix. Will change to amiodarone 200 mg p.o. twice daily. Patient is now on steroids to treat possible asthma as a component of her wheezing. Stable cardiology status for discharge. Will
sign off, call with questions. Discussed with daughter at bedside
Original Note:
Today's Communication / Plan
-
Continue amiodarone, but will reduce to 200mg BID at discharge
Continue higher dose Cardizem 240mg BID.
Restarted PO lasix 40mg daily this AM.
BMP in 1 week
Follow up arranged
Impression / Plan
-
Family Physician: Ness Mckenzie
Home Economist Consumer Service: Dr. Wilde
Impression:
Presented 09/01/2023 with shortness of breath, cough, palpitations and elevated heart rate
Pneumonia
Acute on chronic HFpEF
Paroxysmal AFib w/ RVR
Chronic anticoagulation on Eliquis
Possible remote prior [place] (10 yrs prior in [facility])
HTN
HLD
History of UTI/E. coli bacteremia
Dementia
Hemorrhoids
Echo 05/15/23: LVEF 55%, mod LVH, no sig valve dz, PASP 32 mmHg
Echo 08/03/2022: EF 55 to 60%, possible mild hypokinesis of the basal to mid anteroseptal guadalupe but poor endocardial definition, stage II diastolic dysfunction, thickened mitral valve leaflets with dense MAC, trace MR, mild TR, estimated PAP 45 mmHg
Plan:
-Presented with SOB, cough, palpitations, and rapid afib.
-Afib started approximately 2 weeks prior to admission. During that time, patient gained ~10 lbs.
-Diuresing this admission w/ IV lasix 40mg daily. Weight down to 171 lbs 09/05. BUN jumped to 45 09/04 and lasix placed on hold.
-Weight up to 173 lbs and BUN and creat improved 09/06. Restarted PO lasix 40mg daily
-Check BMP in 1 week as OP.
-Remains in atrial fibrillation. Loading with amiodarone this admission and Cardizem dose increased to 240mg BID 09/05.
-HR improved overnight on higher dose Diltiazem. Will Continue Cardizem CD 240mg BID and will continue amiodarone at lower dose 200mg BID for 2 weeks after discharge, then decrease to 200mg daily thereafter.
-Discussed consideration for CV during this admission w/ patient and daughter. They prefer rate control for now and will consider CV as OP.
-On Eliquis 5 mg BID for anticoagulation. No missed doses.
-Follow up appt arranged.
HPI 09/03/2023:
87-year-old woman past medical history paroxysmal atrial fibrillation, CAD with remote [place], hypertension, hyperlipidemia, UTI/bacteremia who presented to emergency department 09/01/2023 with complaints of palpitations, elevated heart rate, shortness
of breath and cough. Cardizem recently increased as outpatient due to concerns of elevated heart rate noted by VN. Patient was noted to have concern for pneumonia on chest x-ray and started on broad-spectrum antibiotics, along with nebulizer and
steroids for wheezing. COVID/Flu-negative. EKG showed atrial fibrillation with rapid ventricular response. Patient placed on IV Cardizem drip. However patient did develop hypotension and drip was discontinued on morning of 09/03/2023.
This history is obtained through her daughter who is at bedside and chart review
Progress Note - Home Economist Consumer Service
Subjective
Date of Service: September 07, 2023
Feeling well. No complaints.
Objective
Labs:
09/05/23 06:37
Labs
Hgb 10.2 g/dL (12.0-16.0) L 09/05/23 06:37
Hct 30.7 % (37.0-47.0) L 09/05/23 06:37
Plt Count 228 10^3/uL (130-400) 09/05/23 06:37
Sodium 137 mmol/L (135-145) 09/06/23 07:14
Potassium 4.3 mmol/L (3.5-5.1) 09/06/23 07:14
BUN 41 mg/dl (7-17) H 09/06/23 07:14
Creatinine 0.8 mg/dL (0.6-1.0) 09/06/23 07:14
Glucose 112 mg/dl (70-99) H 09/06/23 07:14
Vital Signs and I&O:
Vital Signs
Temp Pulse Resp BP Pulse Ox
97.6 F 105 20 134/101 93
09/07/23 07:46 09/07/23 07:48 09/07/23 07:48 09/07/23 07:46 09/07/23 08:46
Vital Signs
Temp Pulse Resp BP Pulse Ox
97.6 F 105 20 134/101 93
09/07/23 07:46 09/07/23 07:48 09/07/23 07:48 09/07/23 07:46 09/07/23 08:46
Intake & Output
09/05/23 09/06/23 09/07/23 09/08/23
06:59 06:59 06:59 06:59
Intake Total 1200 / 1200 1380 / 1380 1740 / 1740
Output Total 100 / 100 175 / 175
Balance 1100 / 1100 1205 / 1205 1740 / 1740
Physical Exam
Physical Exam
GEN: No distress, awake, alert. oriented to self. obese. sitting in chair
HEENT: supple, anicteric, mmm, eomi
LUNGS: Exp wheezes B/L
CV: Irreg, S1/S2, no murmur
EXT: No cyanosis, clubbing, or edema.
NEURO: Gross non-focal
SKIN: Warm, pink, dry. No rash
[2023-09-07 09:48] LABS: Blood Urea Nitrogen 34 mg/dl (7-17); Calcium 8.5 mg/dl (8.4-10.2); Carbon Dioxide 28 mmol/L (22-30); Chloride 101 mmol/L (98-107); Estimated Creatinine Clearance 36 ml/min; Glucose 87 mg/dl (70-99); Potassium 4.6 mmol/L (3.5-5.1); Sodium 135 mmol/L (135-145); eGFR > 60.00
--- NOTE | 2023-09-07 10:20 | CM ---
CM following re: discharge planning.
Reviewed pt's chart, met with pt and pt's daughter Haven at bedside.
According to pt will be ready for discharge within 24-48 hours. Both pt and her daughter are aware. IMM reviewed, placed on chart, pt has a copy.
Per CM note a plan is: [facility] [[email or web address]
CM spoke to [facility] [[email or web address]] director of acquisitions Miranda [phone] and she confirmed that pt is accepted for admission and she initiated an auth with [facility] for skilled services at [facility] [[email or web address] band director Miranda asked for pt's SS#. SS number
obtained from pt's daughter [id number] and provided to [facility] [[email or web address]] admissions.
Awaiting for an auth from [email or web address].
[facility] [[email or web address]] nursing report: [phone]
Discharge instructions fax: [phone].
D/C plan: [facility] [[email or web address]] when medically stable and an auth is obtained.
CM will follow to assist pt with discharge to [facility] [[email or web address]
[2023-09-07] MEDS: DECADRON 3 MG IV (11:52)
--- NOTE | 2023-09-07 13:52 | W.PN.HOSP.TC ---
Today's Communication/Plan
-
IV steroid
Assessment / Plan
Assessment / Plan
Patient is 87 years old Barbadian-speaking female who admitted with respiratory distress and has been treated for pneumonia/CHF/rapid A-fib.
Community-acquired pneumonia -chest x-ray with retrocardiac infiltrate. Febrile last night. WBC count normal. Continue antibiotics. . Oxygenation stable on room air. Encourage Acapella, incentive spirometer. Influenza negative, COVID-negative.
Reactive airway disease related to pneumonia vs. hx of second hand exposure. Pt spouse used to smokes. Trial of bronchodilator. Remains on IV steroids. Speech eval. Pulm eval.
09/04
Pulmonary discontinued steroid, but patient still with significant wheezing, will discuss with pulmonology to resume IV Solu-Medrol
Patient status post Mucomyst which helped with wheezing
09/05
cont antibiotic
09/06
overall wheezing improved, shortness of breath improved,.
patient was seen by pulmonary today and restarted IV steroid.
Patient otherwise stable for discharge to rehab but daughter asked for additional day.
pulmonary ok to switch to prednisone taper on discharge.
Atrial fibrillation with RVR-likely triggered by acute illness with pneumonia. Remains of cardizem gtt and continue with po cardizem. Also started on amiodarone loading dose 400 Milligram p.o. 3 times daily continue with Eliquis. Monitor on
telemetry. Hr improved.
09/05
Currently recommending to increase Cardizem, continue methadone
Discussed with family guarding cardioversion, family hesitant, continue medical management.
Acute on chronic diastolic heart failure exacerbation. proBNP elevated. Started on IV 40 Lasix per cardiology. Daughter states patient did gain approximately 10 pounds at home.
09/05
Overall improving
Switch Lasix to oral
Recent hospitalization for sepsis and UTI -July 2023.
Chronic heart failure preserved EF -no signs of exacerbation.
Essential hypertension -stable.
Constipation -with recent lower GI bleed felt to be either hemorrhoidal or anal fissure. Continue bowel regimen.
Mild dementia, likely Alzheimer's type
Morbid obesity due to excess calories
CODE STATUS: Full code
DVT prophylaxis: Eliquis
Diet: Cardiac diet
Discussed with patient daughter at bedside in details
Anticipated Discharge: Within 24 hours
Subjective/Interval History
-
Date of Service: September 07, 2023
Patient seen and examined at bedside, daughter at bedside.
overall wheezing improved, shortness of breath improved,.
Patient denies any chest pain, no abdominal pain, no nausea, no vomiting, no diarrhea or constipation.
patient was seen by pulmonary and restarted IV steroid.
Patient otherwise stable for discharge to rehab but daughter asked for additional day.
pulmonary ok to switch to prednisone taper on discharge.
Objective Data
-
Labs:
Laboratory Results
09/07/23
07:17
Sodium 135
Potassium 4.6
Chloride 101
Carbon Dioxide 28
BUN 34 H
Creatinine 0.9
Glucose 87
Calcium 8.5
Vital Signs:
Vital Signs
Temp Pulse Resp BP Pulse Ox
97.7 F 103 18 142/88 96
09/07/23 11:02 09/07/23 13:28 09/07/23 13:28 09/07/23 11:02 09/07/23 13:28
I&O
09/06/23 09/07/23 09/08/23
06:59 06:59 06:59
Intake Total 1380 / 1380 1740 / 1740
Output Total 175 / 175
Balance 1205 / 1205 1740 / 1740
Physical Exam
-
General: Well Developed and No Apparent Distress
HEENT: Normocephalic, Atraumatic and Moist Mucous Membranes
Respiratory: Wheezes (Improved), Rales, Rhonchi and Crackles
Cardiac: Regular Rhythm and S1/S2; Negative Murmur, Rub or Gallop
GI: Soft, Nontender, Nondistended and Normal Bowel Sounds; Negative Organomegaly
Rectal: Deferred by Provider
Musculoskeletal: No Clubbing, No Cyanosis and No Edema
Skin: Negative Rash
Neuro: Nonfocal/Grossly Intact
[2023-09-07] MEDS: PACERONE PO (17:00)
[2023-09-07] MEDS: ZITHROMAX 500 MG PO (17:01)
[2023-09-07] MEDS: STERILE WATER FOR INJECTION 10 ML IV (17:01)
[2023-09-07] MEDS: ROCEPHIN 1000 MG IV (17:04)
[2023-09-07] MEDS: PACERONE 200 MG PO (20:19)
[2023-09-07] MEDS: DECADRON IV (23:16)
--- NOTE | 2023-09-07 23:16 | PTCARENOTE ---
Daughter notes that patient is increasingly restless and hyper since getting the IV Decadron this afternoon. When in to give 0000 IV Decadron dose, daughter states that patient continues to be restless, hyper and now with visual hallucinations and
tearfulness. Daughter worried that more steroids will make this worse. Educated patient on side effects of steroids, and agreed to hold 0000 dose. Daughter would like to speak with MD in AM before continuing IV steroids. Patient in no distress at
this time, daughter in room overnight, bed alarm in place.
[2023-09-08] VITALS (7 sets, daily range): BP systolic 128–158; BP diastolic 67–88; BMI 40.9
[2023-09-08] MEDS: PULMICORT INH (07:49)
[2023-09-08] MEDS: ATROVENT NEBULES INH (07:49)
[2023-09-08] MEDS: PULMICORT 0.5 MG INH ×2 (08:03→20:08)
[2023-09-08] MEDS: ATROVENT NEBULES 0.5 MG INH ×3 (08:03→20:08)
[2023-09-08] MEDS: CARDIZEM CD 240 MG PO ×2 (08:19→21:02)
[2023-09-08] MEDS: MIRALAX 17 GRAMS PO (08:20)
[2023-09-08] MEDS: MUCINEX 600 MG PO ×2 (08:20→21:02)
[2023-09-08] MEDS: ELIQUIS 5 MG PO ×2 (08:20→21:02)
[2023-09-08] MEDS: LASIX 40 MG PO (08:20)
[2023-09-08] MEDS: PACERONE 200 MG PO ×2 (08:20→21:02)
[2023-09-08] MEDS: DECADRON IV (12:09)
--- NOTE | 2023-09-08 12:57 | W.PN.HOSP.TC ---
Today's Communication/Plan
-
Dc azithromycin
Rocephin tomm
DC iv steroids
monitor mentation
start dispo
Assessment / Plan
Assessment / Plan
Patient is 87 years old Northern Irish-speaking female who admitted with respiratory distress and has been treated for pneumonia/CHF/rapid A-fib.
Community-acquired pneumonia -chest x-ray with retrocardiac infiltrate. Febrile last night. WBC count normal. Oxygenation stable on room air. Encourage Acapella, incentive spirometer. Influenza negative, COVID-negative.
Reactive airway disease related to pneumonia vs. hx of second hand exposure. Pt spouse used to smokes. Trial of bronchodilato -can trial pulmicort if needed. Speech eval. Pulm eval.
DC azithromycin. Rocpehin last dose tomm.
Dc IV steroids as improvement in wheezing as severe S/E of IV steroids.
Atrial fibrillation with RVR-likely triggered by acute illness with pneumonia. Remains of cardizem gtt and continue with po cardizem. Also started on amiodarone loading dose 400 Milligram p.o. 3 times daily continue with Eliquis. Monitor on
telemetry. Hr improved.
Currently recommending to increase Cardizem, continue methadone
Discussed with family guarding cardioversion, family hesitant, continue medical management.
Acute on chronic diastolic heart failure exacerbation. proBNP elevated. Started on IV 40 Lasix per cardiology. Daughter states patient did gain approximately 10 pounds at home.
Overall improving
Switch Lasix to oral
Recent hospitalization for sepsis and UTI -July 2023.
Chronic heart failure preserved EF -no signs of exacerbation.
Essential hypertension -stable.
Constipation -with recent lower GI bleed felt to be either hemorrhoidal or anal fissure. Continue bowel regimen.
Mild dementia, likely Alzheimer's type
Morbid obesity due to excess calories
CODE STATUS: Full code
DVT prophylaxis: Eliquis
Diet: Cardiac diet
Discussed with patient daughter at bedside in details
Anticipated Discharge: Within 24 hours
Subjective/Interval History
-
Date of Service: September 08, 2023
Overnight with hallucinations and tremors
some confusion per daughter
otherwise improvement in breathing
Objective Data
-
Vital Signs:
Vital Signs
Temp Pulse Resp BP Pulse Ox
97.7 F 101 16 134/80 94
09/08/23 11:18 09/08/23 11:18 09/08/23 11:18 09/08/23 11:18 09/08/23 11:18
I&O
09/07/23 09/08/23 09/09/23
06:59 06:59 06:59
Intake Total 1740 / 1740 120 / 120
Balance 1740 / 1740 120 / 120
Physical Exam
-
General: Well Developed and No Apparent Distress
HEENT: Normocephalic, Atraumatic and Moist Mucous Membranes
Respiratory: Rhonchi
Cardiac: Regular Rhythm and S1/S2; Negative Murmur, Rub or Gallop
GI: Soft, Nontender, Nondistended and Normal Bowel Sounds; Negative Organomegaly
Rectal: Deferred by Provider
Musculoskeletal: No Clubbing, No Cyanosis and No Edema
Skin: Negative Rash
Neuro: Awake, No Motor Deficits and Nonfocal/Grossly Intact
Psych: Calm
--- NOTE | 2023-09-08 14:43 | W.PN.PUL3 ---
Today's Communication / Plan
-
Discontinue IV corticosteroids
Continue nebulizer therapy
Complete antibiotics tomorrow
Diuretics
Disposition planning
Assessment
-
87-year-old female with history of atrial fibrillation with rapid ventricular response, recurrent heart failure in the past, presents with increased shortness of breath, wheezing. Was treated with antibiotics for possible pneumonia and rate control
medications, including amiodarone. We are asked to comment on her pulmonary process 09/03
Acute hypoxic respiratory insufficiency
Requiring supplemental oxygen
Acute heart failure, preserved EF
Wheezing, crackles on exam
Atrial fibrillation with rapid ventricular response
Amiodarone has been started 09/02/2023
Posterior basal infiltrate on chest x-ray
New compared to 08/04/2023
History of recurrent bronchitis with wheezing
Multiple hospital stays over the past few years ([facility])
Symptoms worsen since 2017
Conditions present prior to admission
Hypertension/hyperlipidemia
Suspected sleep disordered breathing
Mild dementia
Plan/recommendations
Clinically improved
-
Continue nebulizers-ipratropium bromide-avoiding beta agonist with atrial fibrillation and previous rapid rate
Xopenex as needed.
Continue twice a day budesonide while in the hospital
I agree with discontinuation of IV corticosteroids and observe. Bronchospasm has improved.
Note: Chest x-ray with basilar atelectasis
Continue antibiotics-finite course, wound complete 5-day course total. Last dose of antibiotics tomorrow.
Diuresis as tolerated
Monitor renal function, electrolytes, intake/output, lower extremity edema and weight
Cardiology following-correspondence reviewed-Lasix on hold, transition to oral Lasix in the morning and continue Eliquis.
Ideally cardioverted but patient and daughter would like to hold off and rate control - suspect if CV then inc atrial kick, forward flow and perhaps 'cardiac wheezing' might improve
Strongly suspected sleep disordered breathing given exam and symptom complex and comorbidities
Nocturnal oximetry essentially normal
Not sure whether patient will be able to follow-up as outpatient but this was briefly reviewed with the daughter
DVT prophylaxis-on Eliquis
Nutrition
Early mobilization
Consideration towards outpatient pulmonary follow-up/sleep disorders follow-up
-
Discharge planning per primary team.
Subjective Data
-
Date of Service:
Date of Service: September 08, 2023
Chief Complaint: Pulmonary Follow Up (Bronchitis/respiratory sufficiency) and Dyspnea Follow Up
Review of Systems
General: Fever (n)
Cardiopulmonary: Dyspnea (improved)
GI: Abdominal Pain (n) and Nausea (n)
Neuro: Headache (n)
Objective Data
Data Reviewed
Vital Signs / I&O / Oxygen:
Vital Signs
Temp Pulse Resp BP Pulse Ox
97.7 F 101 16 134/80 94
09/08/23 11:18 09/08/23 11:18 09/08/23 11:18 09/08/23 11:18 09/08/23 11:18
Intake and Output
09/07/23 09/08/23 09/09/23
06:59 06:59 06:59
Intake Total 1740 / 1740 120 / 120
Balance 1740 / 1740 120 / 120
SaO2 94
Nasal Cannula flow liters per 94
minute
Physical Exam
General: Respiratory Distress (n) and Comfortable (On room air)
HEENT: Normocephalic, Anicteric and Moist Mucous Membranes
Cardiovascular: Regular Rhythm, Murmur (n), Rub (n) and Peripheral Edema (Trace)
Respiratory: Wheeze (Mild and expiratory, upper airway), Crackles (Few scattered), Rhonchi (n), Non-Labored Respirations and Stridor (n)
GI: Soft, Non Distended (Obese) and Non Tender
Neurology: Awake, Alert and No Motor Deficits (Able to sit up with minimal assistance)
Skin: Warm, Good Color, Cyanosis (n), Jaundice (n) and Rash (n)
Labs/Micro/Reports
Lab Data
09/05/23 06:37
09/07/23 07:17
[2023-09-08] MEDS: ROCEPHIN 1000 MG IV (15:25)
[2023-09-08] MEDS: STERILE WATER FOR INJECTION 10 ML IV (15:25)
[2023-09-09 03:39] VITALS: BP 124/71
[2023-09-09 05:14] VITALS: BMI 41.0
[2023-09-09] MEDS: PULMICORT 0.5 MG INH ×2 (07:27→20:15)
[2023-09-09] MEDS: ATROVENT NEBULES 0.5 MG INH ×3 (07:27→20:15)
[2023-09-09 07:43] VITALS: BP 121/72
[2023-09-09] MEDS: MUCINEX 600 MG PO ×2 (07:54→19:46)
[2023-09-09] MEDS: PACERONE 200 MG PO ×2 (07:54→19:46)
[2023-09-09] MEDS: ELIQUIS 5 MG PO ×2 (07:54→19:46)
[2023-09-09] MEDS: LASIX 40 MG PO (07:54)
[2023-09-09] MEDS: CARDIZEM CD 240 MG PO ×2 (07:54→19:46)
[2023-09-09] MEDS: MIRALAX 17 GRAMS PO (07:55)
--- NOTE | 2023-09-09 09:51 | CM ---
Call placed to [facility], [facility] , still waiting on Auth.
Plan; Skilled placement at [facility] when Auth received.
[facility],
[facility] [address],
[place] [address]
.
--- NOTE | 2023-09-09 10:55 | W.PN.HOSP.TC ---
Today's Communication/Plan
-
Continue the bronchodilators.
Monitor heart rate
Continue with p.o. Lasix
Await placement
Assessment / Plan
Assessment / Plan
Patient is 87 years old North Korean-speaking female who admitted with respiratory distress and has been treated for pneumonia/CHF/rapid A-fib.
Community-acquired pneumonia -chest x-ray with retrocardiac infiltrate. Febrile last night. WBC count normal. Oxygenation stable on room air. Encourage Acapella, incentive spirometer. Influenza negative, COVID-negative.
Reactive airway disease related to pneumonia vs. hx of second hand exposure. Pt spouse used to smokes. Trial of bronchodilator -can trial pulmicort if needed. Speech eval. Pulm eval.
DC azithromycin. Completed 7-day course of Rocephin.
Dc IV steroids as improvement in wheezing as severe S/E of IV steroids.
Atrial fibrillation with RVR-likely triggered by acute illness with pneumonia. Remains of cardizem gtt and continue with po cardizem. Also started on amiodarone loading dose 400 Milligram p.o. 3 times which has been reduce to 200mg BID. continue
with Eliquis. Monitor on telemetry. Hr improved.
Currently recommending to increase Cardizem, continue methadone
Discussed with family guarding cardioversion, family hesitant, continue medical management.
Acute on chronic diastolic heart failure exacerbation. proBNP elevated. Started on IV 40 Lasix per cardiology and now transitioned to 40mg lasix daily. Daughter states patient did gain approximately 10 pounds at home.
Recent hospitalization for sepsis and UTI -July 2023.
Chronic heart failure preserved EF -no signs of exacerbation.
Essential hypertension -stable.
Constipation -with recent lower GI bleed felt to be either hemorrhoidal or anal fissure. Continue bowel regimen.
Mild dementia, likely Alzheimer's type
Morbid obesity due to excess calories
CODE STATUS: Full code
DVT prophylaxis: Eliquis
Diet: Cardiac diet
Discussed with patient daughter at bedside in details
Dispo-SNF. Medically stable. Await authorization. CM aware
Anticipated Discharge: Within 24 hours
Subjective/Interval History
-
Date of Service: September 09, 2023
States feeling better
Denies any further hallucination
state breathing is improved
Objective Data
-
Vital Signs:
Vital Signs
Temp Pulse Resp BP Pulse Ox
98.0 F 65 16 121/72 91
09/09/23 07:43 09/09/23 07:54 09/09/23 07:43 09/09/23 07:54 09/09/23 07:43
I&O
09/08/23 09/09/23 09/10/23
06:59 06:59 06:59
Intake Total 120 / 120 220 / 220
Balance 120 / 120 220 / 220
Physical Exam
-
General: Well Developed and No Apparent Distress
HEENT: Normocephalic, Atraumatic and Moist Mucous Membranes
Respiratory: Clear to Auscultation
Cardiac: Regular Rhythm and S1/S2; Negative Murmur, Rub or Gallop
GI: Soft, Nontender, Nondistended and Normal Bowel Sounds; Negative Organomegaly
Rectal: Deferred by Provider
Musculoskeletal: No Clubbing, No Cyanosis and No Edema
Skin: Negative Rash
Neuro: Awake, No Motor Deficits and Nonfocal/Grossly Intact
Psych: Calm
[2023-09-09 11:47] VITALS: BP 115/67
--- NOTE | 2023-09-09 13:54 | W.PN.PUL3 ---
Today's Communication / Plan
-
Continue with current care without change
Observe off steroids
Completed antibiotic
Discharge planning
Sign off
Assessment
-
87-year-old female with history of atrial fibrillation with rapid ventricular response, recurrent heart failure in the past, presents with increased shortness of breath, wheezing. Was treated with antibiotics for possible pneumonia and rate control
medications, including amiodarone. We are asked to comment on her pulmonary process 09/03
Acute hypoxic respiratory insufficiency
Requiring supplemental oxygen
Acute heart failure, preserved EF
Wheezing, crackles on exam
Atrial fibrillation with rapid ventricular response
Amiodarone has been started 09/02/2023
Posterior basal infiltrate on chest x-ray
New compared to 08/04/2023
History of recurrent bronchitis with wheezing
Multiple hospital stays over the past few years ([facility])
Symptoms worsen since 2017
Conditions present prior to admission
Hypertension/hyperlipidemia
Suspected sleep disordered breathing
Mild dementia
Plan/recommendations
Improved from the pulmonary perspective.
Not bronchospastic on exam 09/09/2023
-
Continue with current care:
Continue nebulizers-ipratropium bromide-avoiding beta agonist with atrial fibrillation and previous rapid rate
Xopenex as needed.
Continue twice a day budesonide while in the hospital
Observe off steroids. Developed some delirium.
Note: Chest x-ray with basilar atelectasis
Completed 5 days of antibiotics 09/17/2023.
Continue diuresis, clinically improved.
Monitor renal function, electrolytes, intake/output, lower extremity edema and weight
Cardiology following-correspondence reviewed-Lasix on hold, transition to oral Lasix in the morning and continue Eliquis.
Suspect wheezing may have also been related to pulmonary edema.
Strongly suspected sleep disordered breathing given exam and symptom complex and comorbidities
Nocturnal oximetry essentially normal
Not sure whether patient will be able to follow-up as outpatient but this was briefly reviewed with the daughter
DVT prophylaxis-on Eliquis
Consideration towards outpatient pulmonary follow-up/sleep disorders follow-up, information will be left in the chart. Unclear if patient will follow-up.
-
Discharge planning per primary team.
No additional recommendations from the pulmonary perspective. Discharge planning ongoing.
Sign off
Subjective Data
-
Date of Service:
Date of Service: September 09, 2023
Chief Complaint: Pulmonary Follow Up (Bronchitis/respiratory sufficiency) and Dyspnea Follow Up
Subjective:
No new overnight events
Off corticosteroids without rebound bronchospasm.
Review of Systems
General: Fever (n)
Cardiopulmonary: Dyspnea (none at rest)
GI: Abdominal Pain (n)
Objective Data
Data Reviewed
Vital Signs / I&O / Oxygen:
Vital Signs
Temp Pulse Resp BP Pulse Ox
98.0 F 77 16 115/67 94
09/09/23 11:47 09/09/23 11:47 09/09/23 11:47 09/09/23 11:47 09/09/23 11:47
Intake and Output
09/08/23 09/09/23 09/10/23
06:59 06:59 06:59
Intake Total 120 / 120 220 / 220
Balance 120 / 120 220 / 220
SaO2 94
Nasal Cannula flow liters per 94
minute
Physical Exam
General: Respiratory Distress (n) and Comfortable (On room air)
HEENT: Normocephalic, Anicteric and Moist Mucous Membranes
Cardiovascular: Regular Rhythm, Murmur (n), Rub (n) and Peripheral Edema (Trace)
Respiratory: Wheeze (none ), Crackles (Few scattered), Rhonchi (n), Non-Labored Respirations and Stridor (n)
GI: Soft, Non Distended (Obese) and Non Tender
Neurology: Awake, Alert and No Motor Deficits (Able to sit up with minimal assistance)
Skin: Warm, Good Color, Cyanosis (n), Jaundice (n) and Rash (n)
Labs/Micro/Reports
Lab Data
09/05/23 06:37
09/07/23 07:17
[2023-09-09 15:30] VITALS: BP 115/75
[2023-09-09 19:15] VITALS: BP 131/81
[2023-09-09 23:00] VITALS: BP 142/80
[2023-09-10 03:10] VITALS: BP 135/99
[2023-09-10 06:00] VITALS: BMI 40.9
[2023-09-10 07:00] VITALS: BP 124/83
[2023-09-10] MEDS: PULMICORT 0.5 MG INH (07:25)
[2023-09-10] MEDS: ATROVENT NEBULES 0.5 MG INH ×2 (07:25→13:37)
[2023-09-10 08:53] VITALS: BP 124/83
[2023-09-10] MEDS: LASIX 40 MG PO (09:15)
[2023-09-10] MEDS: CARDIZEM CD 240 MG PO (09:15)
[2023-09-10] MEDS: MUCINEX 600 MG PO (09:15)
[2023-09-10] MEDS: ELIQUIS 5 MG PO (09:15)
[2023-09-10] MEDS: MIRALAX 17 GRAMS PO (09:16)
[2023-09-10] MEDS: PACERONE 200 MG PO (09:16)
--- NOTE | 2023-09-10 11:11 | CM ---
Addendum entered by Maria Esther Lou 09/10/23 15:38:
Daughter to transport patient to [facility].
Original Note:
Patient has been approved for 7 days skilled at [facility], Auth [id number], per [facility] at [place], bed is available today.
Report [phone]

[facility],
[facility] [address],
[place] [address]
Plan; Patient to refer to [facility] when stable.
--- NOTE | 2023-09-10 14:52 | W.PN.HOSP.TC ---
Today's Communication/Plan
-
dc to SNF
Assessment / Plan
Assessment / Plan
Patient is 87 years old [place] Islander-speaking female who admitted with respiratory distress and has been treated for pneumonia/CHF/rapid A-fib.
Community-acquired pneumonia -chest x-ray with retrocardiac infiltrate. Afebrile since 08/31. WBC count normal. Oxygenation stable on room air. Encourage Acapella, incentive spirometer. Influenza negative, COVID-negative.
Reactive airway disease related to pneumonia vs. hx of second hand exposure. Pt spouse used to smokes. Trial of bronchodilator -can trial pulmicort if needed. Speech eval. Pulm eval.
DC azithromycin. Completed 7-day course of Rocephin.
Dc IV steroids as improvement in wheezing as severe S/E of IV steroids.
Atrial fibrillation with RVR-likely triggered by acute illness with pneumonia. Was on cardizem gtt and continue with po cardizem. Also started on amiodarone loading dose 400 Milligram p.o. 3 times which has been reduce to 200mg BID. continue with
Eliquis. Monitor on telemetry. Hr improved.
Currently recommending to increase Cardizem, continue methadone
Discussed with family guarding cardioversion, family hesitant, continue medical management.
Acute on chronic diastolic heart failure exacerbation. proBNP elevated. Started on IV 40 Lasix per cardiology and now transitioned to 40mg lasix daily. Daughter states patient did gain approximately 10 pounds at home.
Recent hospitalization for sepsis and UTI -July 2023.
Chronic heart failure preserved EF -no signs of exacerbation.
Essential hypertension -stable.
Constipation -with recent lower GI bleed felt to be either hemorrhoidal or anal fissure. Continue bowel regimen.
Mild dementia, likely Alzheimer's type
Morbid obesity due to excess calories
CODE STATUS: Full code
DVT prophylaxis: Eliquis
Diet: Cardiac diet
Discussed with patient daughter at bedside in details
Dispo-SNF. Medically stable. DC to SNF now
see dictated note
More than 30 minutes spent in discharge including
Final examination of the patient
Summarizing hospital stay
Instructions for continuing care to all relevant caregivers
Preparation of discharge records, prescriptions, and referral forms
Total time spent (in minutes): 45
Anticipated Discharge: Today
Subjective/Interval History
-
Date of Service: September 10, 2023
Awake, alert, minimal speech
Objective Data
-
Vital Signs:
Vital Signs
Temp Pulse Resp BP Pulse Ox
97.7 F 70 15 124/83 96
09/10/23 07:00 09/10/23 13:39 09/10/23 13:39 09/10/23 07:00 09/10/23 13:39
I&O
09/09/23 09/10/23 09/11/23
06:59 06:59 06:59
Intake Total 220 / 220 360 / 360
Balance 220 / 220 360 / 360
Review of Systems
-
History Source: Family (dgt at bedside provides information)
Constitutional: Reports Fever
EENT: Reports No Symptoms Reported
Respiratory: Reports Cough and Trouble Breathing (much improved)
Cardiac: Reports No Symptoms
Abdomen/GI: Reports No Symptoms
Musculoskeletal: Reports No Symptoms
Physical Exam
-
General: Well Developed, Well Nourished and No Apparent Distress
HEENT: Normocephalic, Atraumatic and Moist Mucous Membranes
Respiratory: Wheezes (end expiratory wheeze on forced expiration)
Cardiac: Regular Rhythm and S1/S2
GI: Soft, Nontender and Nondistended
Musculoskeletal: No Clubbing, No Cyanosis and No Edema
Neuro: Awake and Alert
[2023-09-10 15:21] VITALS: BP 137/64
--- NOTE | 2023-09-10 15:23 | W.DS.TRANS ---
DC Summary - Relationship Consultant
-
Discharge Instructions:
Discharge Diagnosis/Procedures Atrial Fibrillation, Bronchospasm
Diet Low Sodium
Activity With assistance
Driving Restrictions No driving
Bathing Restrictions None
Blood Work CBC, BMP in 1 week
Others Tests EKG in 1 week
Instructions:
Stand-Alone Forms:
Changes to Home Medications: Yes
Discharge Medications:
DC Medications w/original date entered in [employer]
apixaban 5 mg tablet (Eliquis) 5 mg PO BID #0 tabs 02/03/23
glycerin-carbomer homopoly type A-potassium hydroxide mucosal solution (MuGard mucosal solution) 5 ml mucous membrane DAILY PRN mouth irritation #240 mL 08/07/23
hydrocortisone acetate 25 mg rectal suppository 25 mg NC DAILY INFLAMMATION 09/02/23
polyethylene glycol 3350 17 gram oral powder packet (HealthyLax) 17 g PO DAILY Gastrointestinal Issue 09/02/23
acetaminophen 325 mg tablet 650 mg (2 x 325 mg) PO Q6HPRN PRN mild pain/ fever>100.5F #90 tabs 09/10/23
amiodarone 200 mg tablet 200 mg PO BID #60 tabs 09/10/23
benzonatate 100 mg capsule 100 mg PO TIDPRN PRN cough #60 caps 09/10/23
budesonide 0.5 mg/2 mL suspension for nebulization 0.5 mg (2 mL) inhalation R BID #60 mL 09/10/23
diltiazem HCl 240 mg capsule,extended release 24 hr 240 mg PO Q12 #60 caps 09/10/23
furosemide 40 mg tablet 40 mg PO DAILY #30 tabs 09/10/23
guaifenesin 600 mg tablet, extended release 12 hr 600 mg PO Q12 #60 tabs 09/10/23
ipratropium bromide 0.02 % solution for inhalation 0.5 mg (2.5 mL) inhalation R TID #62.5 mL 09/10/23
levalbuterol HCl 1.25 mg/3 mL solution for nebulization 1.25 mg (3 mL) inhalation R Q6HPRN PRN tachycardic #75 mL 09/10/23
Home Medication Changes
Lasix dose increased from 20 mg to 40 mg daily
Augmentin stopped
Diltiazem increased to 240 bid
Amiodarone started
inhalation meds added
Pending Results: No
== END 2023-09-10 16:21 | DRG 193 ==
LOC: 4 WEST ACU 17:34
PROVIDERS: General Practice; Hospitalist; Nurse Practitioner Family; Physician Assistant; ADMITTING PHYSICIAN Hospitalist; ATTENDING PHYSICIAN Internal Medicine; CONSULT PHYSICIAN Internal Medicine Cardiovascular Disease; CONSULT PHYSICIAN Internal Medicine Critical Care Medicine; EMERGENCY PHYSICIAN Student in an Organized Health Care Education/Training Program; FAMILY PHYSICIAN Internal Medicine
DX: J18.9 Pneumonia, unspecified organism (principal); I50.33 Acute on chronic diastolic (congestive) heart failure; Z68.41 Body mass index [BMI] 40.0-44.9, adult; J98.11 Atelectasis; I48.0 Paroxysmal atrial fibrillation; I11.0 Hypertensive heart disease with heart failure; E66.01 Morbid (severe) obesity due to excess calories; K59.09 Other constipation; F03.A0 Unspecified dementia, mild, without behavioral disturbance, psychotic disturbance, mood disturbance, and anxiety
CPT/HCPCS: 71046; 80048; 80053; 83036; 83605; 83735; 83880; 84443; 85025; 87502; 87811; 92610; 93005; 94640; 94762; 96361; 96365; 96375; 97163; 97167; 97530; 97535; 99285